=== PATIENT | male | born 1975 | race Caucasian/White ===

== ENCOUNTER 2017-12-11 15:32 | Emergency (ER) | payer MEDICAID, SELFPAY ==
[2017-12-11 16:01] VITALS: BP 126/81; PULSE 109; RESP 18; TEMP 36.8; O2SAT 97; BMI 30.9
--- NOTE | 2017-12-11 16:54 | HMH.EDUTC ---
[facility] [place] Clinical Impression: History of gout, History of renal insufficiency Right ankle pain Qualifiers: Chronicity: acute Qualified Code(s): M25.571 - Pain in right ankle and joints of right foot Disposition: Home, Self-Care Condition on Discharge: Good Instructions: DI for Gout Additional Instructions: Start prednisone taper. Use as directed Weight bearing as tolerated. Crutches as needed until pain improves As we discussed, this don't know for certain this is gout without the workup we discussed. I understand this is so similar to what you have had before and that you want steroids but if not improvement or ANY new or worsening symptoms, you MUST follow up as this may be something different. Notify PCP of possibly another gout attack. Prescriptions: predniSONE [Prednisone 10mg Tab Dose-Pack] 10 mg PO UD DOSE PK 12 Days #1 pack Referrals: Edita Rascon APRN [Primary Care Provider] - (Immediately for new or worsening symptoms but also notify her Wednesday of symptoms and possibly another gout attack (can't be for certain since no workup tonight)) Time of Disposition: 17:07 Medical Decision Making - Maximo Inquiry Pt receiving controlled substance: No Vital Signs: 12/11/17 16:01 Temperature 98.3 F Temperature Source Temporal Artery Scan Pulse Rate [Right Radial] 109 H Respiratory Rate 18 Blood Pressure [Right Arm] 126/81 Blood Pressure Mean [Right Arm] 96 Blood Pressure Source [Right Arm] Automatic Cuff Blood Pressure Position [Right Arm] Sitting 02 Sat by Pulse Oximetry 97 Oxygen Delivery Method Room Air - Reevaluation(s) Reevaluation #1: Lengthy discussion regarding necessity for labs, xray. pt refusing. States he knows this is gout and only wants steroids. Aware of the risk of this not being gout and possibly something else. Aware if this is infection, steroids can make it worse. Also discussed the possibility of stress fracture without trauma. Still declines further workup. [facility] [place] - General Stated complaint: Pain in right foot Time Seen by Provider: 12/11/17 16:54 Mode of Arrival: Wheelchair Source of Information: Patient Limitations: No Limitations Description of Symptoms (Recalled from Triage Doc. by RN): PT C/O RIGHT FOOT PAIN. PT THINKS ITS GOUT. HEENT Symptoms (Recalled from RN notes): No Resp Symptoms (Recalled from RN notes): No Skin Symptoms (Recalled from RN notes): No MS Symptoms (Recalled from RN notes): Yes (RIGHT FOOT PAIN) Functional Status (Recalled from RN notes): NA - History of Present Illness Provider Complaint: c/o another gout attack . Pain right lateral ankle. Occurred suddenly in middle of night. No injury/trauma. Pain worse with ROM or trying to bear weight. Associated w/ swelling and redness. Hx of gout. same symptoms . Wanting steroids because those helped previously. Hx of kidney disease. When last seen in May 2017, was dx stage II at that time. Pt isn't sure now. Saw tableau administrator and was started on a blood pressure pill . Last episode gout then in May. Refusing workup today stating he knows what this is and he doesn't need xrays or labs. - Related Data Home Medications Medication Instructions Recorded Confirmed carvedilol 25 mg tablet 25 mg PO BID 10/21/17 12/11/17 Lisinopril [Prinivil 20mg Tablet] 20 mg PO BID 12/11/17 12/11/17 hydroCHLOROthiazide [HCTZ 25mg 25 mg PO BID 12/11/17 12/11/17 tab] Previous Rx's Medication Instructions Recorded predniSONE [Prednisone 10mg Tab 10 mg PO UD DOSE PK 12 Days #1 pack 12/11/17 Dose-Pack] Allergies Allergy/AdvReac Type Severity Reaction Status Date / Time No Known Allergies Allergy Unverified 09/14/17 14:49 - Worker's Comp Is this a Worker's Comp case?: No [facility] History I have reviewed the patient's past medical history: Yes Medical History: Reports:: Hypertension, Migraine, Renal Disease Denies:: Cancer, Diabetes Mellitus Type 1, Diabetes Mellitus Type 2, MRSA Other
[2017-12-11 17:17] VITALS: BP 122/69; PULSE 100; RESP 18; TEMP 36.9; O2SAT 99
== END 2017-12-11 17:12 | disposition home or self-care (01) ==
PROVIDERS: Emergency Provider Nurse Practitioner Family; PCP Nurse Practitioner Family
DX: M10.071 Idiopathic gout, right ankle and foot (principal); I10 Essential (primary) hypertension; N18.2 Chronic kidney disease, stage 2 (mild)
CPT/HCPCS: 99201

== ENCOUNTER → 2018-04-18 08:44 | Outpatient (CLI) | payer MEDICAID, SELFPAY ==
--- NOTE | 2018-04-18 08:47 | CA_ITS ---
PROCEDURE: 2-D M-mode and color Doppler study INDICATIONS FOR THE TEST: Chest pain COPD Heart Murmur Tobacco Smoking Palpitations Fatigue Syncope Edema Hypertension+Diabetes Mellitus Rheumatic Fever SOB SANCHEZ Obesity Hyperlipidemia Family History HD Additional History DD, LOOP RECORDER PATIENT INFORMATION HEIGHT: 74 WEIGHT:256 GENDER: Male B/P:130/79 2-D/M-MODE INTERPRETATION: 2-D MEASUREMENTS OBSERVED VALUES IN CMS Right Ventricular Dimension (RVDd) 3.5 Interventricular Septum (Thickness)(IVsd) 1.0 Left Ventricular Internal Dimensions(LVIDd) 5.9 Left Ventricular Posterior Wall (Thickness)(LVPWd) 0.7 Aortic Root 3.7 Aortic Cusp Separation 2.3 Left Atrial Dimensions (LAD) 4.7 2D 1. Left atrium is mildly enlarged, left ventricle is normal size, there is mild concentric left ventricular hypertrophy, visually estimated ejection fraction 55% with no obvious regional wall motion abnormality. 2. The right atrium and right ventricle are normal size and contractility. 3. The aortic valve is minimally thickened and fibrosed. 4. The mitral and tricuspid valve are grossly normal. 5. The pulmonic valve is poorly visualized. 6. No significant pericardial effusion noted. DOPPLER INTERROGATION: Doppler interrogation of the aortic, mitral and tricuspid valvular presence of mild mitral and tricuspid regurgitation, tricuspid and jet velocity is insufficient for calculation of the right ventricular systolic pressure, diastolic parameters are inconclusive. CONCLUSION: 1. Mildly enlarged left atrium, normal left ventricular size, preserved left ventricular systolic function, visually estimated ejection fraction 55% with no obvious regional wall motion abnormality, diastolic parameters are inconclusive. 2. Mild mitral and tricuspid regurgitation 3. No significant pericardial effusion noted.
[2018-04-18 09:57] LABS: Anion Gap 11.7 mEq/L (5-15); Blood Urea Nitrogen 25 mg/dL (7-18); Calcium 9.2 mg/dL (8.5-10.1); Carbon Dioxide 30 mmol/L (21.0-32.0); Chloride 105 mmol/L (98-107); Creatinine,Serum 1.57 mg/dL (0.70-1.30); Estimated Glomerular Filt Rate 48 ml/min (>60); GFR (African American) 58 ML/MIN (>60); Glucose 110 mg/dL (74-106); Potassium 4.7 mmoL/L (3.5-5.1); Sodium 142 mmol/L (136-145)
== END ==
PROVIDERS: Urology; PCP Nurse Practitioner Family; Visit Provider Internal Medicine
DX: R07.9 Chest pain, unspecified (principal); I50.30 Unspecified diastolic (congestive) heart failure
CPT/HCPCS: 36415; 80048; 93306

== ENCOUNTER → 2019-06-01 17:05 | Outpatient (CLI) | payer MEDICAID, SELFPAY ==
[2019-06-01 17:41] LABS: Basophils % 0.6 % (0.1-2.0); Eosinophils # 0.2 K/mm3 (0.0-0.4); Eosinophils % 2.7 % (0.1-12.0); Hematocrit 46.1 % (42.0-52.0); Hemoglobin 15.7 g/dL (14.1-18.0); Lymphocytes # 1.6 K/mm3 (0.7-4.5); Lymphocytes % 23.4 % (10-50); Mean Corpuscular HGB Conc 33.9 g/dL (31.8-35.4); Mean Corpuscular Volume 91.3 fl (80-94); Mean Platelet Volume 8.3 fl (7.4-10.4); Monocytes # 0.5 K/mm3 (0.1-1.0); Monocytes % 7.2 % (1.7-9.3); Neutrophils # 4.6 K/mm3 (1.8-7.8); Neutrophils % 66.1 % (37.0-80.0); Platelet Count 265 K/mm3 (142-424); Red Blood Count 5.06 M/mm3 (4.60-6.20); Red Cell Distribution Width 14.3 % (11.5-17.5)
[2019-06-01 18:35] LABS: Alanine Aminotransferase 155 U/L (12-78); Albumin Level 4.2 gm/dL (3.4-5.0); Alkaline Phosphatase 92 U/L (46-116); Anion Gap 14.3 mEq/L (5-15); Aspartate Amino Transferase 94 U/L (15-37); Bilirubin,Total 1.2 mg/dL (0.2-1.0); Blood Urea Nitrogen 29 mg/dL (7-18); Calcium 9.5 mg/dL (8.5-10.1); Carbon Dioxide 28 mmol/L (21.0-32.0); Chloride 99 mmol/L (98-107); Chol/HDL Ratio 7.8 (1-3.5); Cholesterol 235 mg/dL (140-200); Creatinine,Serum 1.84 mg/dL (0.70-1.30); Estimated Glomerular Filt Rate 40 ml/min (>60); GFR (African American) 48 ML/MIN (>60); Globulin 4.1 gm/dl (1.3-3.2); Glucose 108 mg/dL (74-106); HDL Cholesterol 30 mg/dL (27-67); Potassium 4.3 mmoL/L (3.5-5.1); Sodium 137 mmol/L (136-145); T4 (Thyroxine) 6.6 ug/dl (4.7-13.3); Thyroid Stimulating Hormone 0.96 uIU/ml (0.358-3.740); Total Protein,Serum 8.3 gm/dL (6.4-8.2)
[2019-06-01 18:44] LABS: Triglycerides 505 mg/dL (30-200)
== END ==
PROVIDERS: Visit Provider Nurse Practitioner Family
DX: R53.83 Other fatigue (principal); I10 Essential (primary) hypertension
CPT/HCPCS: 80053; 80061; 84436; 84443; 85025

== ENCOUNTER → 2019-06-07 18:23 | Outpatient (CLI) | payer MEDICAID, SELFPAY ==
[2019-06-09 11:12] LABS: Hep A Ab, IgM Negative (Negative); Hepatitis B Core Antibody IgM Negative (Negative); Hepatitis B Surface Antigen Negative (Negative)
[2019-06-09 17:11] LABS: Hepatitis C Antibody <0.1 s/co ratio (0.0-0.9)
== END ==
PROVIDERS: Visit Provider Nurse Practitioner Family
DX: R73.9 Hyperglycemia, unspecified (principal)
CPT/HCPCS: 80074; 83036

== ENCOUNTER → 2019-07-26 10:03 | Outpatient (CLI) | payer OTHER, SELFPAY ==
[2019-07-26 11:33] LABS: Anion Gap 12.4 mEq/L (5-15); Blood Urea Nitrogen 15 mg/dL (7-18); Calcium 9.8 mg/dL (8.5-10.1); Carbon Dioxide 30 mmol/L (21.0-32.0); Chloride 101 mmol/L (98-107); Creatinine,Serum 1.74 mg/dL (0.70-1.30); Estimated Glomerular Filt Rate 43 ml/min (>60); GFR (African American) 52 ML/MIN (>60); Glucose 103 mg/dL (74-106); Potassium 3.4 mmoL/L (3.5-5.1); Sodium 140 mmol/L (136-145)
== END ==
PROVIDERS: Visit Provider Urology
DX: I10 Essential (primary) hypertension (principal); I51.9 Heart disease, unspecified; R94.5 Abnormal results of liver function studies
CPT/HCPCS: 36415; 80048

== ENCOUNTER 2019-10-02 18:48 | Observation (INO) ==
[2019-10-02 19:04] LABS: Basophils # 0.1 K/mm3 (0-0.2); Basophils % 0.6 % (0.1-2.0); Eosinophils # 0.1 K/mm3 (0.0-0.4); Eosinophils % 1.2 % (0.1-12.0); Hematocrit 43.9 % (42.0-52.0); Hemoglobin 14.3 g/dL (14.1-18.0); Lymphocytes # 1.8 K/mm3 (0.7-4.5); Lymphocytes % 18.3 % (10-50); Mean Corpuscular HGB Conc 32.7 g/dL (31.8-35.4); Mean Corpuscular Volume 83.4 fl (80-94); Mean Platelet Volume 7.7 fl (7.4-10.4); Monocytes # 0.6 K/mm3 (0.1-1.0); Monocytes % 6.4 % (1.7-9.3); Neutrophils # 7.4 K/mm3 (1.8-7.8); Neutrophils % 73.5 % (37.0-80.0); Platelet Count 282 K/mm3 (142-424); Red Blood Count 5.26 M/mm3 (4.60-6.20); Red Cell Distribution Width 14.4 % (11.5-17.5); White Blood Count 10.1 K/mm3 (4.8-10.8)
[2019-10-02 19:21] LABS: Anion Gap 15.4 mEq/L (5-15); Blood Urea Nitrogen 19 mg/dL (7-18); Calcium 9.4 mg/dL (8.5-10.1); Carbon Dioxide 25 mmol/L (21.0-32.0); Chloride 101 mmol/L (98-107); Glucose 100 mg/dL (74-106); Sodium 138 mmol/L (136-145)
--- NOTE | 2019-10-02 20:20 | Emergency Department Note ---
ED Disposition Clinical Impression: Angina at rest, Obesity (BMI 30.0-34.9), Hypertensive urgency HTN (hypertension) Qualifiers: Hypertension type: essential hypertension Qualified Code(s): I10 - Essential (primary) hypertension Disposition: Admitted as Observation Condition on Discharge: Good Referrals: Edita Rascon APRN [Primary Care Provider] - - Critical Care Critical Care Time: No Attestation: On 10/02/19, the high probability of a clinically significant, sudden or life threatening deterioration of the following system(s) required my full and direct attention, intervention and personal management. The time I documented below is in addition to time spent performing reported procedures but includes the following listed in this critical care notation. Medical Decision Making - Medical Records Medical records reviewed: Yes: I reviewed the patient's medical records. - Maximo Inquiry Pt receiving controlled substance: No Vital Signs: 10/02/19 18:48 10/02/19 19:28 10/02/19 19:49 Temperature 98.0 F Temperature Source Oral Pulse Rate [Radial] 93 H 88 92 H Respiratory Rate 18 18 Blood Pressure [Right Arm] 196/137 H 182/128 H 159/117 H Blood Pressure Mean [Right Arm] 156 146 131 Blood Pressure Source [Right Arm] Automatic Cuff Manual Cuff/ Auscultation Automatic Cuff Blood Pressure Position [Right Arm] Sitting Sitting 02 Sat by Pulse Oximetry 97 99 96 Oxygen Delivery Method Room Air Room Air Room Air - Lab Data Lab results reviewed: Yes: I reviewed the patient's lab results. Lab Results 10/02/19 18:52: WBC 10.1, RBC 5.26, Hgb 14.3, Hct 43.9, MCV 83.4, MCH 27.3, MCHC 32.7, RDW 14.4, Plt Count 282, MPV 7.7, Neut % (Auto) 73.5, Lymph % (Auto) 18.3, [place] % (Auto) 6.4, Eos % (Auto) 1.2, Baso % (Auto) 0.6, Neut # (Auto) 7.4, Lymph # (Auto) 1.8, [place] # (Auto) 0.6, Eos # (Auto) 0.1, Baso # (Auto) 0.1 10/02/19 18:52: Sodium 138, Potassium 3.4 L, Chloride 101, Carbon Dioxide 25, Anion Gap 15.4 H, BUN 19 H, Creatinine 1.18, Estimated Creat Clear 122, Estimated GFR 67, Est GFR ( Amer) 81, Glucose 100, Calcium 9.4, Troponin I < 0.02 Result diagrams: 10/02/19 18:52 10/02/19 18:52 Orders (Tests/Meds): ED MEDICATIONS Discontinued Medications Generic Name Dose Route Start Last Admin Trade Name Freq PRN Reason Stop Dose Admin Aspirin 324 mg 10/02/19 18:56 10/02/19 19:00 Aspirin 81mg Chewable Tablet PO 10/02/19 18:57 324 mg ONCE ONE Administration Nitroglycerin 0.4 mg 10/02/19 19:28 10/02/19 19:31 Nitrostat 0.4mg Sl Tablet SL 10/02/19 19:29 0.4 mg ONCE ONE Administration ORDERS Category Date Time Status Troponin I Q3H Lab 10/02/19 22:00 Ordered Troponin I Q3H Lab 10/03/19 01:00 Ordered ECG Request by /Maura Stat Y 10/02/19 18:56 Ordered - Radiology Data #1 Image(s): Chest Image Reviewed: Yes I reviewed the patient's radiology image Preliminary Findings: Normal/NAD - ECG Data Tracing #1 Normal Sinus Rhythm: Yes Ischemic changes: non-specific ST-T wave changes Conduction abnormalities present: RBBB Chest Pain HPI - General Chief Complaint: Chest Pain Stated Complaint: chest pain Time Seen by Provider: 10/02/19 20:00 Mode of Arrival: Ambulatory Source of Information: Patient, Medical Record Limitations: No Limitations Description of Symptoms (Recalled from ER Triage Doc. by RN): Headache, chest pain with left arm numbness - History of Present Illness HPI narrative: pt with acute onset of ant chest pain feels like being punched with rad to lt upper ext - has known heart disease - no recent cath - no tob or diabetes but has htn and has been compliant with meds complaint: chest pain indicative of cardiac Onset (ago): hour(s) Duration: now resolved Activity at onset: during rest Pain location: left chest Severity: moderate Quality: sharp Pain radiation: LUE Risk Factors for CAD: Hypertension, Hypercholesterolemia, Family Hx of CAD Treatments prior to or on arrival for Cardiac Chest Pain: none - CRISTOPHER Score for Non-Stemi Age of Patient: 40-49 years old Heart Rate: 90-109 bpm Systolic Blood Pressure: 160-199 mmHg Serum Creatinine: 0.80-1.19 mg/dl CHF [place] Class: I-No CHF Other Risk Factors: None Non-Stemi Risk Score: 57 - Related Data Home Medications Medication Instructions Recorded Confirmed Amlodipine Besylate 10 mg PO DAILY 10/02/19 10/02/19 Allergies Allergy/AdvReac Type Severity Reaction Status Date / Time No Known Allergies Allergy Verified 08/30/19 16:24 [facility] History - Hepatitis A Screen Drug use history?: No High risk sexual behaviors?: No History of sexually transmitted infection?: No Currently employed?: No Childcare worker?: No Do you have indoor plumbing?: Yes Do you have electricity?: Yes Attestation statement:: This patient has been screened for Hepatitis A risk factors. I have reviewed the patient's past medical history: Yes Medical History: Reports:: Coronary Artery Disease, Hypertension, Migraine, Renal Disease Denies:: Cancer, Diabetes Mellitus Type 1, Diabetes Mellitus Type 2, MRSA Other Medical History: Reports: Other Other Surgeries: Yes: Cardiac Catheterization, Other Amputation: No Fractures: No Comment: HEART CATH, LUP RECORDER - Social History Educational Level: Completed High School Smoking Status: Never smoker Tobacco Type: smokeless tobacco # Packs/Day (cigarettes): 0 Alcohol Intake: never Alcohol Intake Frequency:: other Substance Use Type: denies use Occupational Status: unemployed Housing: house Household Members: children, family Family Hx:: Cancer ROS Obtained: Yes All systems reviewed & no additional complaints - Constitutional Constitutional: Denies fever(s) - Eyes Eyes: Denies change in vision - ENT Ears, Nose, Mouth, and Throat: Denies sore throat - Cardiovascular Cardiovascular: Reports chest pain, Denies dyspnea - Respiratory Respiratory: No cough - Gastrointestinal Gastrointestingal: Denies: abdominal pain - Genitourinary Male Genitourinary: Denies hematuria - Musculoskeletal Musculoskeletal: Denies joint pain, Denies joint swelling - Integumentary/Breasts Skin/Breast: Denies rash - Neurologic Neurologic: Denies frequent falls, Denies seizure-like activity Physical Exam - General General appearance: alert - Head Head exam: normocephalic - Eye Eye exam: Present: PERRL, EOMI - ENT ENT exam: Present: mucous membranes moist - Neck Neck exam: Present: trachea midline - Respiratory Respiratory exam: Present: normal lung sounds bilaterally - Cardiovascular Cardiovascular exam: Present: regular rate, systolic murmur. Absent: rubs, gallop - Abdominal Exam Abdominal exam: Present: soft - Extremities Exam Extremities exam: Present: full ROM. Absent: calf tenderness - Neurological Exam Neurological exam: Present: alert, oriented X3, CN II-XII intact - Psychiatric Psychiatric exam: Present: normal affect - Skin Skin exam: Absent: rash
[2019-10-03 06:32] LABS: Basophils # 0.1 K/mm3 (0-0.2); Eosinophils # 0.3 K/mm3 (0.0-0.4); Mean Corpuscular HGB Conc 32.5 g/dL (31.8-35.4); Monocytes # 0.6 K/mm3 (0.1-1.0); Red Cell Distribution Width 14.6 % (11.5-17.5)
[2019-10-03 06:38] LABS: Basophils % 0.7 % (0.1-2.0); Eosinophils % 3.3 % (0.1-12.0); Hematocrit 39.4 % (42.0-52.0); Lymphocytes % 25.5 % (10-50); Mean Corpuscular Volume 84.4 fl (80-94); Mean Platelet Volume 7.9 fl (7.4-10.4); Monocytes % 7.3 % (1.7-9.3); Neutrophils % 63.1 % (37.0-80.0); Platelet Count 251 K/mm3 (142-424); Red Blood Count 4.67 M/mm3 (4.60-6.20); White Blood Count 7.9 K/mm3 (4.8-10.8)
[2019-10-03 06:56] LABS: Anion Gap 11.7 mEq/L (5-15); Calcium 8.8 mg/dL (8.5-10.1); Chol/HDL Ratio 6.4 (1-3.5)
[2019-10-03 07:05] LABS: Hemoglobin 12.8 g/dL (14.1-18.0)
--- NOTE | 2019-10-03 07:38 | Consult Report ---
History of Present Illness Consult date: 10/03/19 Requesting physician: Dale Bhat Consult reason: chest pain Chief complaint: chest pain Additional Medical History:: 1. HTN A. History of CKD, stage III/IV, now resolved. 2. Obesity 3. Normal coronaries by [facility] , 06/2017, normal LVEF 60% and LVEDP of 15 mm Hg 4. History of gout History of present illness: 43 yo WM with long history of HTN that has been difficult to control presented to ER for chest pain. Pt relates recent separation from which has increased his stress. He was thinking about things yesterday when his chest pain started and it kept getting worse as he continued to think about things. He came to ER for evaluation and treatment. Symptoms resolved with SL NTG and then NTG paste. Admitted overnight for observation. Troponins normal X 3 overnight. EKG is sinus with RBBB. No further chest pain overnight. History of normal coronaries in 06/2017. 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 Last saw Nephrology about 6 months ago. [facility] History Medical History: Reports:: Coronary Artery Disease, Hypertension, Migraine, Renal Disease Denies:: Cancer, Diabetes Mellitus Type 1, Diabetes Mellitus Type 2, MRSA *Have you ever received a pneumonia vaccine?: Yes *Have you received a flu vaccine this season?: Yes Other Medical History: Reports: Other Other Surgeries: Yes: Cardiac Catheterization (heart cath x2), Other (Loop recorder) Amputation: No Fractures: No - *Social History Educational Level: Completed High School Smoking Status: Never smoker Tobacco Type: smokeless tobacco # Packs/Day (cigarettes): 0 Alcohol Intake: never Alcohol Intake Frequency:: other Substance Use Type: denies use *Occupational Status:: employed Housing: house Household Members: children, family *Travel in the last 8 weeks: None Family Hx:: Cancer, Hyperlipidemia, Hypertension, Stroke Meds Home Medications Medication Instructions Recorded Confirmed Type Amlodipine Besylate 10 mg PO DAILY 10/02/19 10/02/19 History Allergies Allergy/AdvReac Type Severity Reaction Status Date / Time No Known Allergies Allergy Verified 10/02/19 21:14 Review of Systems - Review of Systems Review of systems:: pertinent systems reviewed and negative unless documented below - *Cardiovascular Reports chest pain - *Respiratory Denies shortness of breath - *Gastrointestinal Denies loose stools, Denies nausea, Denies vomiting - *Genitourinary Denies blood in urine - *Musculoskeletal Denies joint pain, Denies back pain - *Neurologic Denies frequent falls, Denies seizure-like activity Exam Vital signs and Labs for Last 24 Hours: Temp Pulse Resp BP Pulse Ox 97.7 F 64 18 136/99 H 96 10/03/19 04:00 10/03/19 04:00 10/03/19 04:00 10/03/19 04:00 10/03/19 04:00 Laboratory Results - last 24 hr 10/02/19 18:52: WBC 10.1, RBC 5.26, Hgb 14.3, Hct 43.9, MCV 83.4, MCH 27.3, MCHC 32.7, RDW 14.4, Plt Count 282, MPV 7.7, Neut % (Auto) 73.5, Lymph % (Auto) 18.3, [place] % (Auto) 6.4, Eos % (Auto) 1.2, Baso % (Auto) 0.6, Neut # (Auto) 7.4, Lymph # (Auto) 1.8, [place] # (Auto) 0.6, Eos # (Auto) 0.1, Baso # (Auto) 0.1 10/02/19 18:52: Sodium 138, Potassium 3.4 L, Chloride 101, Carbon Dioxide 25, Anion Gap 15.4 H, BUN 19 H, Creatinine 1.18, Estimated Creat Clear 122, Estimated GFR 67, Est GFR ( Amer) 81, Glucose 100, Calcium 9.4, Troponin I < 0.02 10/02/19 21:56: Troponin I < 0.02 10/03/19 00:35: Troponin I < 0.02 10/03/19 06:20: WBC 7.9, RBC 4.67, Hgb 12.8 L D, Hct 39.4 L, MCV 84.4, MCH 27.4, MCHC 32.5, RDW 14.6, Plt Count 251, MPV 7.9, Neut % (Auto) 63.1, Lymph % (Auto) 25.5, [place] % (Auto) 7.3, Eos % (Auto) 3.3, Baso % (Auto) 0.7, Neut # (Auto) 5.0, Lymph # (Auto) 2.0, [place] # (Auto) 0.6, Eos # (Auto) 0.3, Baso # (Auto) 0.1 10/03/19 06:20: Sodium 140, Potassium 3.7, Chloride 104, Carbon Dioxide 28, Anion Gap 11.7, BUN 17, Creatinine 1.07, Estimated Creat Clear 138, Estimated GFR 75, Est GFR ( Amer) 90, Glucose 110 H, Calcium 8.8, Magnesium 2.0, Triglycerides 238 H, Cholesterol 185, LDL Cholesterol 108, VLDL Cholesterol 48 H , HDL Cholesterol 29, Cholesterol/HDL Ratio 6.4 H I & O for Last 24 hours: Intake & Output 09/30/19 10/01/19 10/02/19 10/03/19 11:59 11:59 11:59 11:59 Intake Total 482 / 482 Balance 482 / 482 Weight 246 lb 1 oz - *Routine HEENT Exam Head: Present: normocephalic Eye: Present: EOMI, PERRL ENT: Present: mucous membranes moist - *Routine Neck Exam Present: supple. Absent: JVD, carotid bruit - *Routine Respiratory Exam Present: CTA bilaterally. Absent: accessory muscle use, rales, rhonchi, wheezes - *Routine Cardiovascular Exam Present: RRR. Absent: murmur, gallop, rubs - *Routine Abdominal Exam Present: soft. Absent: tenderness, distended, guarding - *Routine Extremities Exam Absent: edema, calf tenderness - *Routine Neurological Exam Present: alert, oriented X3, moving all extremities Assessment and Plan (1) Chest pain Current visit: Yes Status: Acute Category: Medical Code(s): R07.9 - Chest pain, unspecified (2) Hypertensive urgency Current visit: Yes Status: Acute Category: Medical Code(s): I16.0 - Hypertensive urgency (3) Obesity (BMI 30.0-34.9) Current visit: Yes Status: Acute Category: Medical Code(s): E66.9 - Obesity, unspecified (4) HTN (hypertension) Current visit: Yes Status: Chronic Qualifiers: Hypertension type: essential hypertension Qualified Code(s): I10 - Essential (primary) hypertension Category: Medical Code(s): I10 - Essential (primary) hypertension - Assessment and plan all Dx Assessment and Plan for all problems:: 1. Chest pain, normal troponins X 3 and EKG with RBBB without acute ST segment changes. Normal coronaries in 2017. Pt now relates stress related to recent separation with that prompted chest pain. BP better this AM. No further testing at this time. OK for discharge home from cardiology standpoint. Resume norvasc 10 mg daily.
--- NOTE | 2019-10-03 08:06 | Pharmacy Consult Notes ---
[facility] Pharmacy VTE Monitoring - Patient Demographics Admission date: 10/02/19 Report Date: 10/03/19 Time: 08:05 Allergies/Adverse Reactions: Patient Allergies No Known Allergies Allergy (Verified 10/02/19 21:14) Height: 1.88 m Weight: 111.612 kg Patient Problems: Current Active Problems Angina at rest (Acute) Obesity (BMI 30.0-34.9) (Acute) Hypertensive urgency (Acute) Chest pain (Acute) HTN (hypertension) (Chronic) - VTE Risk Labs: VTE Related Lab Results Hgb 12.8 g/dL (14.1-18.0) L D 10/03/19 06:20 Hct 39.4 % (42.0-52.0) L 10/03/19 06:20 Plt Count 251 K/mm3 (142-424) 10/03/19 06:20 BUN 17 mg/dL (7-18) 10/03/19 06:20 Creatinine 1.07 mg/dL (0.70-1.30) 10/03/19 06:20 Estimated Creat Clear 138 mL/min (50-200) 10/03/19 06:20 Was VTE Risk Assessment Performed: Yes VTE Score: 2 VTE Risk Level: Very Low Risk Clinical Trial Participant: No - Prophylaxis VTE Prophylaxis Ordered?: Yes Types of VTE Prophylaxis: TEDS Knee High
--- NOTE | 2019-10-03 09:47 | H&P/Discharge Summary ---
General - General Admission date:: 10/02/19 Discharge date: 10/03/19 *Admission Date: 10/02/19 *Chief complaint: Chest Pain *History of present illness: 43 yo WM with long history of HTN that has been difficult to control presented to ER for chest pain. Pt relates recent separation from which has increased his stress. He was thinking about things yesterday when his chest pain started and it kept getting worse as he continued to think about things. He came to ER for evaluation and treatment. Symptoms resolved with SL NTG and then NTG paste. Admitted overnight for observation. Troponins normal X 3 ove rnight. EKG is sinus with RBBB. No further chest pain overnight. History of normal coronaries in 06/2017. 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 Last saw Nephrology about 6 months ago. (Per Tunde YU) [facility] History Medical History: Reports:: Coronary Artery Disease, Hypertension, Migraine, Renal Disease Denies:: Cancer, Diabetes Mellitus Type 1, Diabetes Mellitus Type 2, MRSA *Have you ever received a pneumonia vaccine?: Yes *Have you received a flu vaccine this season?: Yes Other Medical History: Reports: Other Other Surgeries: Yes: Cardiac Catheterization (heart cath x2), Other (Loop recorder) Amputation: No Fractures: No - *Social History Educational Level: Completed High School Smoking Status: Never smoker Tobacco Type: smokeless tobacco # Packs/Day (cigarettes): 0 Alcohol Intake: never Alcohol Intake Frequency:: other Substance Use Type: denies use *Occupational Status:: employed Housing: house Household Members: children, family *Travel in the last 8 weeks: None Family Hx:: Cancer, Hyperlipidemia, Hypertension, Stroke Review of Systems - Review of Systems Review of systems:: pertinent systems reviewed and negative unless documented below - Constitutional Denies fever(s), Denies headache(s) - Eyes Denies blind spots, Denies double vision - ENT Denies abnormal hearing, Denies nasal congestion - *Cardiovascular Reports chest pain, Reports chest pain at rest, Denies lightheadedness, Denies shortness of breath when lying down - *Respiratory Denies change in phlegm color, Denies chest congestion - *Gastrointestinal Denies abdominal pain, Denies change in bowel habits - *Genitourinary Denies difficulty urinating - *Musculoskeletal Denies abnormal walking, Denies joint pain - Integumentary/Breasts Denies acne, Denies hair loss - *Neurologic Denies frequent falls, Denies seizure-like activity - Psychiatric Denies abnormal sleep pattern, Denies thoughts of hurting/killing yourself - Hematologic/Lymphatic Denies easy bleeding, Denies easy bruising - Allergic/Immunologic Denies lip swelling Exam Vital signs and Labs for Last 24 Hours: Temp Pulse Resp BP Pulse Ox 97.5 F L 72 18 152/98 H 96 10/03/19 08:00 10/03/19 08:00 10/03/19 08:00 10/03/19 08:00 10/03/19 08:00 Laboratory Results - last 24 hr 10/02/19 18:52: WBC 10.1, RBC 5.26, Hgb 14.3, Hct 43.9, MCV 83.4, MCH 27.3, MCHC 32.7, RDW 14.4, Plt Count 282, MPV 7.7, Neut % (Auto) 73.5, Lymph % (Auto) 18.3, Union % (Auto) 6.4, Eos % (Auto) 1.2, Baso % (Auto) 0.6, Neut # (Auto) 7.4, Lymph # (Auto) 1.8, Union # (Auto) 0.6, Eos # (Auto) 0.1, Baso # (Auto) 0.1 10/02/19 18:52: Sodium 138, Potassium 3.4 L, Chloride 101, Carbon Dioxide 25, Anion Gap 15.4 H, BUN 19 H, Creatinine 1.18, Estimated Creat Clear 122, Estimated GFR 67, Est GFR ( Amer) 81, Glucose 100, Calcium 9.4, Troponin I < 0.02 10/02/19 21:56: Troponin I < 0.02 10/03/19 00:35: Troponin I < 0.02 10/03/19 06:20: WBC 7.9, RBC 4.67, Hgb 12.8 L D, Hct 39.4 L, MCV 84.4, MCH 27.4, MCHC 32.5, RDW 14.6, Plt Count 251, MPV 7.9, Neut % (Auto) 63.1, Lymph % (Auto) 25.5, Union % (Auto) 7.3, Eos % (Auto) 3.3, Baso % (Auto) 0.7, Neut # (Auto) 5.0, Lymph # (Auto) 2.0, Union # (Auto) 0.6, Eos # (Auto) 0.3, Baso # (Auto) 0.1 10/03/19 06:20: Sodium 140, Potassium 3.7, Chloride 104, Carbon Dioxide 28, Anion Gap 11.7, BUN 17, Creatinine 1.07, Estimated Creat Clear 138, Estimated GFR 75, Est GFR ( Amer) 90, Glucose 110 H, Calcium 8.8, Magnesium 2.0, Triglycerides 238 H, Cholesterol 185, LDL Cholesterol 108, VLDL Cholesterol 48 H , HDL Cholesterol 29, Cholesterol/HDL Ratio 6.4 H I & O for Last 24 hours: Intake & Output 09/30/19 10/01/19 10/02/19 10/03/19 23:59 23:59 23:59 23:59 Intake Total 482 / 482 Balance 482 / 482 Weight 245 lb 6 oz 246 lb 1 oz - Constitutional no acute distress - *Routine HEENT Exam Head: Present: normocephalic, atraumatic Eye: Present: EOMI, PERRL, normal accommodation. Absent: periorbital tenderness ENT: Present: mucous membranes moist. Absent: sinus tenderness - *Routine Neck Exam Present: supple, full ROM. Absent: JVD, tracheal deviation - *Routine Respiratory Exam Present: CTA bilaterally. Absent: accessory muscle use - *Routine Cardiovascular Exam Present: RRR - *Routine Abdominal Exam Present: soft, normoactive bowel sounds. Absent: tenderness, firm - *Routine Extremities Exam Present: full ROM. Absent: cyanosis, calf tenderness - Routine Back/Spine/Pelvis Exam Back/Spine: Present: full ROM. Absent: CVA tenderness - *Routine Skin Exam Present: intact. Absent: cyanosis - *Routine Neurological Exam Present: alert, oriented X3, CN II-XII intact. Absent: motor deficit, altered mental status - Routine Psychiatric Exam Present: normal affect, normal thought process, visual hallucinations. Absent: suicidal ideation, homicidal ideation Hospital Course Hospital Course: 43-year-old male resting quietly in bed, denies any chest pain, shortness of air, or any other complaints during the night. Discussed discharge home today, he is agreeable to this will follow-up with PCP in 1 to 2 weeks 43 yo WM with long history of HTN that has been difficult to control presented to ER for chest pain. Pt relates recent separation from which has increased his stress. He was thinking about things yesterday when his chest pain started and it kept getting worse as he continued to think about things. He came to ER for evaluation and treatment. Symptoms resolved with SL NTG and then NTG paste. Admitted overnight for observation. Troponins normal X 3 overnight. EKG is sinus with RBBB. No further chest pain overnight. History of normal coronaries in 06/2017. 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 Last saw Nephrology about 6 months ago. (Per Tunde YU) 10/02 CXR: IMPRESSION: No acute findings. Dictated by: Dr. Selby, Cardiology is seen and recommends: 1. Chest pain, normal troponins X 3 and EKG with RBBB without acute ST segment changes. Normal coronaries in 2017. Pt now relates stress related to recent separation with that prompted chest pain. BP better this AM. No further testing at this time. OK for discharge home from cardiology standpoint. Resume norvasc 10 mg daily. Results Labs on day of discharge: Labs from last 24 hours 10/03/19 10/03/19 10/03/19 06:20 06:20 00:35 WBC 7.9 RBC 4.67 Hgb 12.8 L D Hct 39.4 L MCV 84.4 MCH 27.4 MCHC 32.5 RDW 14.6 Plt Count 251 MPV 7.9 Neut % (Auto) 63.1 Lymph % (Auto) 25.5 Union % (Auto) 7.3 Eos % (Auto) 3.3 Baso % (Auto) 0.7 Neut # (Auto) 5.0 Lymph # (Auto) 2.0 Union # (Auto) 0.6 Eos # (Auto) 0.3 Baso # (Auto) 0.1 Sodium 140 Potassium 3.7 Chloride 104 Carbon Dioxide 28 Anion Gap 11.7 BUN 17 Creatinine 1.07 Estimated Creat Clear 138 Estimated GFR 75 Est GFR ( Amer) 90 Glucose 110 H Calcium 8.8 Magnesium 2.0 Troponin I < 0.02 Triglycerides 238 H Cholesterol 185 LDL Cholesterol 108 VLDL Cholesterol 48 H HDL Cholesterol 29 Cholesterol/HDL Ratio 6.4 H 10/02/19 10/02/19 10/02/19 21:56 18:52 18:52 WBC 10.1 RBC 5.26 Hgb 14.3 Hct 43.9 MCV 83.4 MCH 27.3 MCHC 32.7 RDW 14.4 Plt Count 282 MPV 7.7 Neut % (Auto) 73.5 Lymph % (Auto) 18.3 Union % (Auto) 6.4 Eos % (Auto) 1.2 Baso % (Auto) 0.6 Neut # (Auto) 7.4 Lymph # (Auto) 1.8 Union # (Auto) 0.6 Eos # (Auto) 0.1 Baso # (Auto) 0.1 Sodium 138 Potassium 3.4 L Chloride 101 Carbon Dioxide 25 Anion Gap 15.4 H BUN 19 H Creatinine 1.18 Estimated Creat Clear 122 Estimated GFR 67 Est GFR ( Amer) 81 Glucose 100 Calcium 9.4 Magnesium Troponin I < 0.02 < 0.02 Triglycerides Cholesterol LDL Cholesterol VLDL Cholesterol HDL Cholesterol Cholesterol/HDL Ratio - Additional Comments Rounded with Dr. Bhat all orders per Dr. Bhat 1. We will discharge home today 2. Follow-up with PCP in 2 weeks 3. Follow-up with cardiology in 2 weeks DS: Diagnosis - Discharge Diagnosis (1) Chest pain Status: Acute (2) Hypertensive urgency Status: Acute (3) Obesity (BMI 30.0-34.9) Status: Acute (4) HTN (hypertension) Status: Chronic Discharge Plan - Patient Discharge Instructions ACTIVITY: Continue current activity DIET: continue same diet Patient Instructions: Angina, Echocardiogram, Essential Hypertension, Electrocardiogram, Malignant Hypertension, DI for Angina, DI for Malignant Hypertension, DI for High Blood Pressure, DI for Atypical Chest Pain, DI for Chest Pain - Follow up Plan Follow up with: Valerio Coles APRN [Nurse Practitioner] - 2 weeks Kennedy Bermudez MD [Staff Physician] - 2 weeks Disposition: Home, Self-[facility] Medications: Home Medications Medication Instructions Recorded Confirmed Type Amlodipine Besylate 10 mg PO DAILY 10/02/19 10/02/19 History Prescriptions/Medication Reconciliation: Continued Amlodipine Besylate 10 mg PO DAILY - Problem Reconciliation Problems Reviewed?: Yes
--- NOTE | 2019-10-03 16:59 | Electrocardiograph Report ---
APPROVED REPORT Exam: Resting ECG HR:90 bpm ECG Measurements Heart Rate 90 AXES NH 140 P 3 QRSd 146 QRS -9 QT 400 T1 QTc 489 <Conclusion> Normal sinus rhythm Right bundle branch block Abnormal ECG Electronically signed by : Alan Tillman, 10/03/2019 16:58:42
--- NOTE | 2019-10-03 16:59 | Electrocardiograph Report ---
APPROVED REPORT Exam: Resting ECG HR:90 bpm ECG Measurements Heart Rate 90 AXES MT 136 P 66 QRSd 92 QRS 67 QT 366 T63 QTc 447 <Conclusion> Normal sinus rhythm Possible Left atrial enlargement Left ventricular hypertrophy Abnormal ECG Electronically signed by : Alan Tillman, 10/03/2019 16:58:33
--- NOTE | 2019-10-03 20:57 | Electrocardiograph Report ---
APPROVED REPORT Exam: Resting ECG HR:69 bpm ECG Measurements Heart Rate 69 AXES KS 154 P 34 QRSd 152 QRS 11 QT 428 T20 QTc 458 <Conclusion> Normal sinus rhythm Right bundle branch block Abnormal ECG Electronically signed by : Wyatt Edwards, 10/03/2019 20:57:09
--- NOTE | 2019-10-03 21:06 | Cardiology Report ---
APPROVED REPORT EXAM: Comprehensive 2D, Doppler, and color-flow Echocardiogram Revenue Cycle Specialist: Agnes Wisdom CRT Ht: 6 ft 2 in Wt: 240lbs BSA: 2.35 BP: 159/117 mmHg Indications: HTN Crisis, Loop recorder, renal disease 2D Dimensions LVOT 2.13 cm (M/F) 1.5-2.5 M-Mode Dimensions RVDd 2.86 cm (0.9-2.6)LVDd 6.29 cm (3.5-5.7) LVDs 4.04 cm (3.5-5.7)IVSd 1.64 cm (0.6-1.1) PWd 0.91 cm (0.6-1.1)EF (Teich) 64.20% FS 35.80% EDV (Teich) 200.50 mL ESV (Teich) 71.70 mL LV Diastology E/A Ratio 0.84 Mitral Valve MV A Velocity 69.00 (40-130 cm/s) Left Ventricle Left atrium is mildly enlarged, left ventricle is normal size, mild concentric left ventricular hypertrophy, visually estimated ejection fraction of 55% with no regional wall motion abnormality. Endocardial surfaces are poorly visualized. Grade 1 diastolic dysfunction seen without tissue Doppler evidence of raise left atrial pressure. Right Ventricle Right atrium and right ventricular normal size and contractility. Aortic Valve Aortic valve is thickened and calcified leaflet continue to display good mobility, there is no aortic stenosis, there is mild aortic insufficiency, aortic root is normal size, ascending aorta with the sinotubular junction is measuring 3.8 cm. Mitral Valve Mitral valve is minimally thickened, there is mild mitral regurgitation. Tricuspid Valve Tricuspid valve is grossly normal, there is mild tricuspid regurgitation. Pulmonic Valve Pulmonic valve is poorly visualized. Great Vessels Aortic root is normal size. Pericardium No significant pericardial effusion noted. Conclusion 1. Mildly enlarged left atrium, normal left ventricular size, mild concentric left ventricular hypertrophy, visually estimated ejection fraction 55% with no regional wall motion abnormality, grade 1 diastolic dysfunction seen without tissue Doppler evidence of raise left atrial pressure. 2. Thickened and calcified aortic valve without aortic stenosis, there is mild aortic insufficiency, ascending aorta is enlarged measuring 3.8 cm. 3. Mild mitral and tricuspid regurgitation. 4. No significant pericardial effusion noted. Electronically signed by : Ck Moctezuma, 10/03/2019 21:06:12
== END 2019-10-03 10:08 | disposition home or self-care (01) ==
LOC: 2ND 18:48 → ER 18:48 → 2ND 21:20
PROVIDERS: ADMIT Emergency Medicine; ATTEND Emergency Medicine
CPT/HCPCS: 36415; 71020; 71046; 80048; 80061; 83735; 84484; 85025; 93005; 93306; 99284; G0378

== ENCOUNTER 2020-07-23 21:28 | Emergency (ER) | payer OTHER, SELFPAY ==
[2020-07-23 21:29] VITALS: BP 220/142; PULSE 89; RESP 20; TEMP 37; O2SAT 95; BMI 33.3
[2020-07-23 22:00] VITALS: BP 178/126; PULSE 87; RESP 17; O2SAT 96
--- NOTE | 2020-07-23 22:00 | ECG_ITS ---
APPROVED REPORT Exam: Resting ECG HR:89 bpm ECG Measurements Heart Rate 89 AXES MI 146 P 10 QRSd 118 QRS 9 QT 382 T 3 QTc 464 Conclusion Normal sinus rhythm Incomplete RBBB Borderline ECG Electronically signed by : Alan Tillman, 07/26/2020 11:22:51
--- NOTE | 2020-07-23 22:00 | XR_ITS ---
PROCEDURE: XR CHEST 2V CLINICAL HISTORY: cp COMPARISON: CR CXR CHEST(2 VIEWS-NOT PORTABLE) from 09/22/2016 CR CXR2V XR chest 2V from 02/04/2018 CR XR CHEST 2V from 10/02/2019 FINDINGS: The cardiomediastinal silhouette and pulmonary vascularity are within normal limits. There is a loop recorder device projecting over the left ventricle. The lungs are clear without infiltrates, suspicious nodules, or pleural effusions. No acute bony abnormalities. IMPRESSION: No acute findings. Dictated by: Dr. Jason Cortes MD 07/24/2020 07:42 Dr. Jason Cortes MD in [place] 07/24/2020 07:42
--- NOTE | 2020-07-23 22:00 | XR_ITS ---
PROCEDURE: XR SHOULDER LT MIN 2V CLINICAL INDICATION: shoulder pain COMPARISON: No exams were available for comparison FINDINGS: The humeral head and glenoid appear normal. The lateral clavicle is intact and the AC joint appears normal. There are no soft tissue calcifications. IMPRESSION: No acute findings. Dictated by: Dr. Jason Cortes MD 07/24/2020 07:43 Dr. Jason Cortes MD in [place] 07/24/2020 07:43
[2020-07-23 22:08] LABS: Basophils # 0.1 K/mm3 (0-0.2); Basophils % 0.8 % (0.1-2.0); Eosinophils # 0.3 K/mm3 (0.0-0.4); Eosinophils % 3.4 % (0.1-12.0); Hemoglobin 16.6 g/dL (14.1-18.0); Lymphocytes # 2.2 K/mm3 (0.7-4.5); Lymphocytes % 24.9 % (10-50); Mean Corpuscular HGB Conc 36.1 g/dL (31.8-35.4); Mean Corpuscular Hemoglobin 31.3 pg (27.0-31.2); Mean Corpuscular Volume 86.7 fl (80-94); Mean Platelet Volume 7.9 fl (7.4-10.4); Monocytes # 0.9 K/mm3 (0.1-1.0); Monocytes % 9.9 % (1.7-9.3); Neutrophils # 5.4 K/mm3 (1.8-7.8); Platelet Count 274 K/mm3 (142-424); Red Cell Distribution Width 14.4 % (11.5-17.5); White Blood Count 8.8 K/mm3 (4.8-10.8)
[2020-07-23 22:12] LABS: Anion Gap 10.9 mEq/L (5-15); Blood Urea Nitrogen 19 mg/dl (9-20); Calcium 9.3 mg/dl (8.4-10.2); Carbon Dioxide 28 mmol/L (22.0-30.0); Chloride 104 mmol/L (98-107); Creatinine Clearance Estimated 118 mL/min (50-200); Estimated Glomerular Filt Rate 59 ml/min (>60); GFR (African American) 72 ML/MIN (>60); Glucose 109 mg/dl (74-100); Potassium 3.9 mmoL/L (3.5-5.1); Sodium 139 mmol/L (136-145)
[2020-07-23 22:25] LABS: Troponin I < 0.01 ng/ml (0.00-0.034)
--- NOTE | 2020-07-23 22:25 | [facility].EDCP ---
ED Disposition Clinical Impression: Atypical chest pain, Hypertensive urgency, Obesity (BMI 30.0-34.9) Disposition: Home, Self-Care Condition on Discharge: Good Instructions: DI for Atypical Chest Pain Additional Instructions: see pcp at 0900 Referrals: Edita Rascon APRN [Primary Care Provider] - - Critical Care Critical Care Time: No Attestation: On 07/23/20, the high probability of a clinically significant, sudden or life threatening deterioration of the following system(s) required my full and direct attention, intervention and personal management. The time I documented below is in addition to time spent performing reported procedures but includes the following listed in this critical care notation. Medical Decision Making - Medical Records Medical records reviewed: Yes: I reviewed the patient's medical records. - Maximo Inquiry Pt receiving controlled substance: No Vital Signs: 07/23/20 21:29 07/23/20 22:00 07/23/20 22:30 Temperature 98.6 F Temperature Source Oral Pulse Rate [Left Radial] 89 87 84 Respiratory Rate 20 17 17 Blood Pressure [Right Arm] 220/142 H 178/126 H 210/136 H Blood Pressure Mean [Right Arm] 168 143 160 Blood Pressure Source [Right Arm] Automatic Cuff Automatic Cuff Manual Cuff/ Auscultation Blood Pressure Position [Right Arm] Supine Supine Supine 02 Sat by Pulse Oximetry 95 96 98 Oxygen Delivery Method Room Air Room Air Room Air 07/23/20 23:00 07/23/20 23:30 Temperature Temperature Source Pulse Rate [Left Radial] 80 82 Respiratory Rate 17 18 Blood Pressure [Right Arm] 180/125 H 189/127 H Blood Pressure Mean [Right Arm] 143 147 Blood Pressure Source [Right Arm] Automatic Cuff Automatic Cuff Blood Pressure Position [Right Arm] Sitting Supine 02 Sat by Pulse Oximetry 95 96 Oxygen Delivery Method Room Air Room Air - Lab Data Lab results reviewed: Yes: I reviewed the patient's lab results. Lab Results 07/23/20 21:45: WBC 8.8, RBC 5.30, Hgb 16.6, Hct 46.0, MCV 86.7, MCH 31.3 H, MCHC 36.1 H, RDW 14.4, Plt Count 274, MPV 7.9, Neut % (Auto) 61.0, Lymph % (Auto) 24.9, [place] % (Auto) 9.9 H, Eos % (Auto) 3.4, Baso % (Auto) 0.8, Neut # (Auto) 5.4, Lymph # (Auto) 2.2, [place] # (Auto) 0.9, Eos # (Auto) 0.3, Baso # (Auto) 0.1 07/23/20 21:45: Sodium 139, Potassium 3.9, Chloride 104, Carbon Dioxide 28, Anion Gap 10.9, BUN 19, Creatinine 1.30 H, Estimated Creat Clear 118, Estimated GFR 59, Est GFR ( Amer) 72, Glucose 109 H, Calcium 9.3, Troponin I < 0.01 Result diagrams: 07/23/20 21:45 07/23/20 21:45 Orders (Tests/Meds): ED MEDICATIONS Discontinued Medications Generic Name Dose Route Start Last Admin Trade Name Freq PRN Reason Stop Dose Admin Ketorolac Tromethamine 30 mg 07/23/20 22:09 07/23/20 22:11 Ketorolac 30mg/Ml Vial IV 07/23/20 22:10 30 mg ONCE ONE Administration ORDERS Category Date Time Status Chest XR 2 view (NOT portable) [XR chest 2V] Stat Exams 07/23/20 22:00 Taken XR shoulder LT min 2V Stat Exams 07/23/20 22:00 Taken Troponin I Q3H Lab 07/24/20 01:15 Ordered Troponin I Q3H Lab 07/24/20 04:15 Ordered - Radiology Data #1 Image(s): Chest, Shoulder Image Reviewed: Yes I reviewed the patient's radiology image Preliminary Findings: Normal/NAD - ECG Data Tracing #1 Normal Sinus Rhythm: Yes Ischemic changes: non-specific ST-T wave changes Chest Pain HPI - General Chief Complaint: Chest Pain Stated Complaint: Soreness in chest, pain when sneezes Time Seen by Provider: 07/23/20 22:25 Mode of Arrival: Ambulatory Source of Information: Patient, Medical Record Limitations: No Limitations Description of Symptoms (Recalled from ER Triage Doc. by RN): Pt c/o pain in left upper area of chest/ shoulder that radiates to left arm when sneezing. He reports he was wrestling w/ his kids 2 weeks agowhen the pain started and he presented to ED because the pain has gotten worse. Left clavical is tender w/ palpation. Pt
[2020-07-23 22:30] VITALS: BP 210/136; PULSE 84; RESP 17; O2SAT 98
[2020-07-23 23:00] VITALS: BP 180/125; PULSE 80; RESP 17; O2SAT 95
[2020-07-23 23:30] VITALS: BP 189/127; PULSE 82; RESP 18; O2SAT 96
[2020-07-24 00:05] VITALS: BP 200/135; PULSE 80; RESP 15; TEMP 36.9; O2SAT 98
== END 2020-07-24 00:10 | disposition home or self-care (01) ==
PROVIDERS: Emergency Provider Emergency Medicine; PCP Nurse Practitioner Family
DX: R07.89 Other chest pain (principal); I16.0 Hypertensive urgency; I25.10 Atherosclerotic heart disease of native coronary artery without angina pectoris; G43.709 Chronic migraine without aura, not intractable, without status migrainosus; Z87.891 Personal history of nicotine dependence; E66.9 Obesity, unspecified; Z68.33 Body mass index [BMI] 33.0-33.9, adult
CPT/HCPCS: 71046; 73030; 80048; 84484; 85025; 93005; 96374; 99283

== ENCOUNTER → 2021-03-11 07:31 | Outpatient (CLI) | payer OTHER, SELFPAY ==
--- NOTE | 2021-03-11 07:33 | CA_ITS ---
APPROVED REPORT Engagement Quality Consultant: Elise Lawrence RVT Study Quality: Good Indications: Malignant HTN Risk Factors Hypertension Obesity Renal Artery Doppler Origin (R) 143.0/ cm/sec Proximal (R) 131.3/ cm/sec Mid (R) 74.3/ cm/sec Distal (R) 84.2/ cm/sec Renal Aorta Ratio (R) 0.00 Segmental A. (R) 46.6/26.4 cm/sec RI: 0.43 Segmental A. Sup (R) 46.0/26.4 cm/sec Segmental A. Mid (R) 39.0/18.9 cm/sec Segmental A. Inf (R) 25.2/7.6 cm/sec Origin (L) 114.4/ cm/sec Proximal (L) 121.8/ cm/sec Mid (L) 156.0/ cm/sec Distal (L) 101.0/ cm/sec Renal Aorta Ratio (L) 0.00 Segmental A. (L) 32.0/14.8 cm/sec RI: 0.53 Segmental A. Sup (L) 20.3/10.9 cm/sec Segmental A. Mid (L) 24.2/4.7 cm/sec Segmental A. Inf (L) 32.0/14.8 cm/sec Renal Measurements Kidney Size (R) 13.1x8.7 cm Cortical Thickness (R) 1.5 cm Kidney Size (L) 13.5x9.2 cm Cortical Thickness (L) 1.9 cm Findings Study suggests no evidence of stenosis in the bilateral renal arteries. Probable cholelithiasis seen. Conclusion Study suggests no evidence of stenosis in the bilateral renal arteries. Probable cholelithiasis seen. Electronically signed by : Dilip Lam MD 03/13/2021 11:42:05
--- NOTE | 2021-03-11 07:33 | CA_ITS ---
APPROVED REPORT EXAM: Comprehensive 2D, Doppler, and color-flow Echocardiogram Stock Handler: Elise Lawrence RVT Ht: 6 ft 2 in Wt: 292lbs BSA: 2.55 BP: 221/127 mmHg Indications: CP,CAD,EX SMOKER,HTN,OBESITY 2D Dimensions LVOT 2.18 cm (M/F) 1.5-2.5 LA Volume 35.80 mL LA Volume Index 14.03 mL/m2 (M/F) 16-34 M-Mode Dimensions RVDd 3.42 cm (0.9-2.6) LA Diam 4.12 cm (1.9-4.0) LVDd 5.31 cm (3.5-5.7) Ao Diam 3.61 cm (2.0-3.7) LVDs 3.66 cm (3.5-5.7) IVSd 2.29 cm (0.6-1.1) PWd 1.01 cm (0.6-1.1) EF (Teich) 58.40% FS 31.10% EDV (Teich) 135.90 mL TAPSE 2.64 (<1.7) ESV (Teich) 56.60 mL LV Diastology E Decel Time 283.00 (160-240 msec) E/A Ratio 0.7 MED E' 3.60 (< 7 cm/sec) E'/MED E' Ratio 17.97 (>14) LAT E' 6.20 (<10 cm/sec) E/LAT E' Ratio 10.44 (>14) Aortic Valve AI PHT 831.00 ms AO Peak GR. 6.70 mmHg Mitral Valve MV E Max Constantine. 65.00 (40-130 cm/s) MV A Velocity 91.00 (40-130 cm/s) E/A Ratio 0.71 MV Decel. Time 283.00 (160-240 ms) MV PHT 83.00 ms Pulmonary Valve PV Peak Velocity 77.00 (50-150 cm/s) Left Ventricle Left atrium is mildly enlarged, left ventricle is normal size, mild concentric left ventricular hypertrophy, visually estimated ejection fraction 50% with no regional wall motion abnormality, grade 1 diastolic dysfunction seen with tissue Doppler evidence of raise left atrial pressure. Right Ventricle Right atrium and right ventricle are mildly enlarged with normal contractility. Aortic Valve Aortic valve is thickened and calcified without aortic stenosis, there is mild aortic insufficiency. Mitral Valve Mitral valve grossly normal, there is mild mitral regurgitation. Tricuspid Valve Tricuspid valve grossly normal, there is mild tricuspid regurgitation, tricuspid regurgitation jet velocity is inadequate for calculation of the right ventricular systolic pressure. Pulmonic Valve Pulmonic valve is poorly visualized. Bio-prosthetic pulmonic valve is present. Great Vessels Aortic root is normal size. Pericardium No significant pericardial effusion noted. Conclusion 1. Biatrial abdomen, normal left ventricular size, mild concentric left ventricular hypertrophy, visually estimated ejection fraction 50% with no regional wall motion abnormality, grade 1 diastolic dysfunction seen with tissue Doppler evidence of raise left atrial pressure. 2. Mildly enlarged right ventricle with normal contractility 3. Mild aortic, mild mitral and tricuspid regurgitation. 4. No significant pericardial effusion noted. Electronically signed by : Ck Moctezuma, 03/11/2021 08:56:35
--- NOTE | 2021-03-11 07:43 | CT_ITS ---
PROCEDURE: CT CHEST WO CON CLINICAL INDICATION: Chest pain COMPARISON: No exams were available for comparison TECHNIQUE: Axial images obtained with sagittal and coronal reformats. All CT scans at the facility use one or more dose reduction, viz: automated exposure control, ma/kV adjustment per patient size (including targeted exams where dose is matched to indication, i.e. head), or iterative reconstruction technique. FINDINGS: There is aneurysmal dilatation of the ascending thoracic aorta of 5.1 centimeters at the level of the main pulmonary artery, and of 4.6 centimeters at the aortic root. Remainder of the thoracic aorta is normal. Heart is not enlarged. No pericardial effusion or thickening. Great vessels off the aortic arch are normal. There is mild bibasilar atelectasis. No pulmonary consolidation or ground-glass opacities in the lungs. Single small calcified granuloma in the right lung base. There are some calcified mediastinal lymph nodes. Hilar regions grossly appear normal. No enlarged axillary nodes. Airways are patent. Images of the upper abdomen show some diffuse fatty infiltration of the visualized liver. No adrenal mass. Some gallstones are present in the gallbladder. A few tiny calcifications noted in the visualized spleen. Mild degenerative changes of the thoracic spine are noted. No acute bony abnormality. IMPRESSION: Aneurysmal dilatation of the ascending thoracic aorta of 5.1 centimeters at the level of the main pulmonary artery and 4.6 centimeters at the aortic root. Mild bibasilar atelectasis. No pulmonary consolidation or ground-glass opacities. Calcified mediastinal lymph nodes. No adrenal mass. Cholelithiasis. Diffuse fatty infiltration of the visualized liver. Dictated by: Dilip Lam 03/11/2021 09:13 Dilip Lam in [place] 03/11/2021 09:13
== END ==
PROVIDERS: PCP Nurse Practitioner Family; Visit Provider Physician Assistant
DX: I10 Essential (primary) hypertension (principal); I16.0 Hypertensive urgency; R94.31 Abnormal electrocardiogram [ECG] [EKG]; E66.9 Obesity, unspecified; Z68.37 Body mass index [BMI] 37.0-37.9, adult
CPT/HCPCS: 71250; 93306; 93976

== ENCOUNTER → 2021-03-19 08:42 | Outpatient (CLI) | payer OTHER, SELFPAY ==
--- NOTE | 2021-03-19 08:42 | US_ITS ---
PROCEDURE: US GALLBLADDER CLINICAL INDICATION: choleithiasis COMPARISON: CT CT CHEST WO CON from 03/11/2021 FINDINGS: Pancreas: Unremarkable Liver: There is diffuse overall and somewhat coarsened increased echogenicity consistent with diffuse fatty infiltration. There are no focal lesions. There is appropriate direction of blood flow within a non dilated portal vein. Right kidney: Right kidney measures 11.8 x 4.8 6.6 cm and appears sonographically normal. Gallbladder: Gallbladder is normal in size size and shows multiple calcified and partially calcified gallstones layering along the dependent wall showing prominent acoustic shadowing beneath. The common bile duct is borderline dilated at 0.7 cm. There is no intrahepatic ductal dilatation. IMPRESSION: Cholelithiasis and diffuse hepatic steatosis Dictated by: Dr. Jason Cortes MD 03/19/2021 09:58 Dr. Jason Cortes MD in [place] 03/19/2021 09:58
== END ==
PROVIDERS: PCP Nurse Practitioner Family; Visit Provider Physician Assistant
DX: K80.20 Calculus of gallbladder without cholecystitis without obstruction (principal)
CPT/HCPCS: 76705

== ENCOUNTER → 2021-05-07 08:44 | Outpatient (CLI) | payer OTHER, SELFPAY ==
[2021-05-07 09:39] LABS: Basophils # 0.1 K/mm3 (0-0.2); Basophils % 0.9 % (0.1-2.0); Eosinophils # 0.4 K/mm3 (0.0-0.4); Eosinophils % 5.2 % (0.1-12.0); Hematocrit 42.9 % (42.0-52.0); Hemoglobin 14.3 g/dL (14.1-18.0); Lymphocytes # 1.8 K/mm3 (0.7-4.5); Lymphocytes % 26.4 % (10-50); Mean Corpuscular HGB Conc 33.3 g/dL (31.8-35.4); Mean Corpuscular Hemoglobin 28.5 pg (27.0-31.2); Mean Corpuscular Volume 85.5 fl (80-94); Mean Platelet Volume 8.1 fl (7.4-10.4); Monocytes # 0.6 K/mm3 (0.1-1.0); Monocytes % 8.4 % (1.7-9.3); Neutrophils % 59.2 % (37.0-80.0); Platelet Count 220 K/mm3 (142-424); Red Blood Count 5.02 M/mm3 (4.60-6.20); Red Cell Distribution Width 14.3 % (11.5-17.5); White Blood Count 6.8 K/mm3 (4.8-10.8)
[2021-05-07 10:29] LABS: Chloride 106 mmol/L (98-107); Potassium 4.9 mmoL/L (3.5-5.1); Sodium 141 mmol/L (136-145)
[2021-05-07 10:32] LABS: Alanine Aminotransferase 133 U/L (12-78); Albumin Level 4.4 g/dl (3.5-5.0); Albumin/Globulin Ratio 1.3 (1.1-1.8); Alkaline Phosphatase 152 U/L (38-126); Anion Gap 14.9 mEq/L (5-15); Aspartate Amino Transferase 104 U/L (17-59); Bilirubin,Total 0.8 mg/dl (0.2-1.3); Blood Urea Nitrogen 27 mg/dl (9-20); Carbon Dioxide 25 mmol/L (22.0-30.0); Estimated Glomerular Filt Rate 50 ml/min (>60); GFR (African American) 61 ML/MIN (>60); Globulin 3.3 g/dL (1.3-3.2); Total Protein,Serum 7.7 g/dl (6.3-8.2)
[2021-05-07 10:33] LABS: Calcium 9.3 mg/dl (8.4-10.2); Glucose 113 mg/dl (74-100)
== END ==
PROVIDERS: Visit Provider Surgery
DX: Z01.812 Encounter for preprocedural laboratory examination (principal); Z11.52 Encounter for screening for COVID-19; K80.20 Calculus of gallbladder without cholecystitis without obstruction
CPT/HCPCS: 80053; 85025; U0003

== ENCOUNTER 2021-05-09 08:12 | Day surgery (SDC) | payer OTHER, SELFPAY ==
[2021-05-07 10:41] VITALS: BMI 31.9
[2021-05-09] VITALS (11 sets, daily range): BP systolic 119–150; BP diastolic 70–107; PULSE 52–75; RESP 12–20; TEMP 36.3–43; O2SAT 91–97
--- NOTE | 2021-05-09 09:20 | HMH.ANESCL ---
[facility] Anesthesia Checklist - Patient Identification Patient Identification: Arm Band - Structural Data Admitted From: Home Planned Operative Procedure/s: Laparoscopic Cholecystectomy Consent for Planned Operative Procedure(s) Verified: Yes Verified Documents: Surgical Consent, History and Physical - NPO Status Verified Time NPO: 00:00 - Additional verifications Anesthesia Reactions: No Hx Blood Transfusions: No Blood Transfusion Reaction: No - Airway Assessment C-Spine Mobility Assessed: Yes (mp2) TMJ Mobility Assessed: Yes Dentition: Good Dentition - Neurological Assessment Level of Consciousness: Awake, Alert - Anesthesia Plan Anesthesia Risk discussed: Yes Anesthesia Plan: Verified ASA Class: III Anesthesia Type: General [facility] History I have reviewed the patient's past medical history: Yes Medical History: Reports:: Coronary Artery Disease, Hypertension, Migraine, Renal Disease Denies:: Cancer, Diabetes Mellitus Type 1, Diabetes Mellitus Type 2, Internal Pacemaker, MRSA, Seizures *Have you ever received a pneumonia vaccine?: No *Have you received a flu vaccine this season?: No Other Medical History: Reports: Other. Denies: Blood Transfusion Reaction Anesthesia experience/problems:: nac Other Surgeries: Yes: Cardiac Catheterization (heart cath x2), Other. No: Pacemaker Amputation: No Fractures: No - *Social History Last grade of school completed: High school graduate Smoking Status: Never smoker Tobacco Type: smokeless tobacco # Packs/Day (cigarettes): 0 Alcohol Intake: never Alcohol Intake Frequency:: other Substance Use Type: denies use *Occupational Status:: employed Housing: house Household Members: significant other *Travel in the last 8 weeks: None Family Hx:: No significant family history
--- NOTE | 2021-05-09 12:02 | P.OP_ITS ---
Date of procedure: 05/09/21 Pre-op Diagnosis:: Chronic calculus cholecystitis Post-op Diagnosis:: Same Procedure performed:: Laparoscopic cholecystectomy Surgeon:: Jose Borges MD PRECISION AGRONOMIST:: Dean Valdes Anesthesia: GETA Estimated blood loss (mL): 25 Operative findings:: Significant gallbladder distention Fairly severe pericholecystic fat stranding (chronic) and infundibular thickening Operative note:: After informed consent was obtained, the patient was taken to the operating room and placed in the supine position. General anesthesia was induced and the abdomen was prepped and draped in a sterile fashion. After infiltration with local anesthetic an infraumbilical incision was made. A Veress needle was placed in position. The abdomen was insufflated. A 5 mm optical trocar was placed in position. Under direct visualization, a 12 mm trocar was placed in the subxiphoid position and 2 additional 5 mm trocars were placed in the right upper quadrant. The gallbladder was elevated up and over the liver margin. The tissue around the cystic duct was carefully dissected. 3 clips were placed proximally and the duct was transected with harmonic cony. Harmonic cony were then utilized to dissect the gallbladder away from the liver margin with careful attention to the control of the cystic artery. The gallbladder was placed in a retrieval bag and removed through the subxiphoid trocar site. The right upper quadrant was thoroughly irrigated. No active bleeding or bile leak was noted. Fascia at the subxiphoid trocar site was reapproximated utilizing 0 Ethibond. The remaining trocars were removed. All wounds were irrigated and skin was closed with 4-0 Monocryl in a subcuticular fashion. Steri-Strips were applied. The patient's anesthetic agents were reversed and extubation was completed prior to transfer to recovery in stable condition. Condition: stable Disposition: PACU Specimens:: Gallbladder and contents Complications:: No immediate
--- NOTE | 2021-05-09 12:13 | HMH.ANESI ---
[facility] Anesthesia Record Part I Intake, IV Amount: 1,500 Estimated blood loss (mL): 0 Urine output (mL): 0 Blood Pressure: 138/93 SaO2: 94 Pulse Rate: 55 Respiratory Rate: 12 Temperature: 97.8 F Patient is:: Awake, Stable Stable to PACU at:: 12:10
--- NOTE | 2021-05-09 14:01 | P.PN_ITS ---
[facility] Anesthesia Record Part II Discharge Time: 12:40 Destination: Surgical Day Care (OP Surgery) PACU nurse assessment reviewed?: Yes Patient Condition:: Good Anesthesia Complications:: None Swallowing reflex intact?: Yes Cyanosis?: No Blood Pressure: 122/71 Pulse Rate: 60 Temperature: 97.3 F Mental Status: Alert & Oriented Pain level:: 0 Nausea and/or vomitting:: None Intake, IV Amount: 0
== END 2021-05-09 13:15 | disposition home or self-care (01) ==
LOC: OR 08:13
PROVIDERS: PCP Nurse Practitioner Family; Visit Provider Surgery
PROC: 0FT44ZZ Resection of Gallbladder, Percutaneous Endoscopic Approach (ICD-10-PCS; CPT 47562; principal; 2021-05-09 10:15)
DX: K81.1 Chronic cholecystitis (principal); I25.10 Atherosclerotic heart disease of native coronary artery without angina pectoris; I10 Essential (primary) hypertension; G43.909 Migraine, unspecified, not intractable, without status migrainosus; N28.9 Disorder of kidney and ureter, unspecified; Z79.899 Other long term (current) drug therapy
CPT/HCPCS: 47562; 96374; J2405; J2710

== ENCOUNTER 2021-12-15 08:11 | Emergency (ER) | payer OTHER, SELFPAY ==
[2021-12-15 08:12] VITALS: BP 187/134; PULSE 73; RESP 16; TEMP 36.8; O2SAT 97; BMI 34.4
--- NOTE | 2021-12-15 08:19 | ECG_ITS ---
APPROVED REPORT Exam: Resting ECG HR:67 bpm ECG Measurements Heart Rate 67 AXES DE 165 P 55 QRSd 117 QRS -15 QT 392 T 24 QTc 407 Conclusion SINUS RHYTHM MODERATE INTRAVENTRICULAR CONDUCTION DELAY [110+ ms QRS DURATION] NONSPECIFIC T-WAVE ABNORMALITY BORDERLINE ECG UNCONFIRMED REPORT Electronically signed by : Wyatt Edwards MD 12/16/2021 16:40:17
--- NOTE | 2021-12-15 08:34 | PC.NURSE ---
MD at bedside at this time
[2021-12-15 08:40] VITALS: BP 187/126; PULSE 66; RESP 21; O2SAT 94
--- NOTE | 2021-12-15 08:48 | XR_ITS ---
FINAL REPORT CLINICAL HISTORY: Pain into arm; no injury COMPARISON: July 23, 2020 FINDINGS: 3 views of the left shoulder were obtained. There is no acute fracture or dislocation. The joint spaces are intact. There are no soft tissue abnormalities. IMPRESSION: No acute process. Reviewed, Interpreted and Dictated by Raul Jeffers MD Transcribed by Larry Swenson Authenticated by Raul Jeffers MD on 12/15/2021 09:26:52 AM [facility]
--- NOTE | 2021-12-15 08:53 | PC.NURSE ---
Dr. Bermudez paged
--- NOTE | 2021-12-15 08:54 | PC.NURSE ---
AMISHA GUTIERREZ on phone with Dr. Bermudez
--- NOTE | 2021-12-15 08:56 | PC.NURSE ---
ED MD at to update patient on POC
--- NOTE | 2021-12-15 09:00 | CT_ITS ---
FINAL REPORT TECHNIQUE: Thin section axial CT images were obtained from the lung apices to the upper abdomen. IV contrast was administered. MIP 3-D reformats were obtained. This study was performed with techniques to keep radiation doses as low as reasonably achievable (ALARA). Individualized dose reduction techniques using automated exposure control or adjustment of mA and/or kV according to the patient's size were employed. CLINICAL HISTORY: Aortic root aneurym -- CTA dissection -- gave 100ml of isovue 370 for contrast study // did an additonal pass to try and see descending aorta COMPARISON: March 11, 2021 FINDINGS: The heart size is normal. There is no adenopathy. There is no filling defect to suggest PE. The aortic root is abnormally enlarged up to 4.6 cm, similar to the previous exam. There is no aortic dissection. There is no pericardial effusion. There is no suspicious infiltrate or nodule. No pleural effusion. Limited images of the upper abdomen demonstrate mild fatty infiltration of the liver. The gallbladder surgically absent. IMPRESSION: Abnormally enlarged aortic root up to 4.6 cm, similar to prior. Reviewed, Interpreted and Dictated by Raul Jeffers MD Transcribed by Larry Swenson Authenticated by Raul Jeffers MD on 12/15/2021 10:41:30 AM [facility]
--- NOTE | 2021-12-15 09:03 | PC.NURSE ---
Notified Rad of image orders
--- NOTE | 2021-12-15 09:06 | PC.NURSE ---
patient to radiology with in flight technician
[2021-12-15 09:22] LABS: Basophils # 0.1 K/mm3 (0-0.2); Basophils % 1.2 % (0.1-2.0); Eosinophils # 0.2 K/mm3 (0.0-0.4); Eosinophils % 2.8 % (0.1-12.0); Hematocrit 46.2 % (42.0-52.0); Hemoglobin 15.1 g/dL (14.1-18.0); Lymphocytes # 1.3 K/mm3 (0.7-4.5); Lymphocytes % 20.2 % (10-50); Mean Corpuscular HGB Conc 32.6 g/dL (31.8-35.4); Mean Corpuscular Hemoglobin 29.5 pg (27.0-31.2); Mean Corpuscular Volume 90.3 fl (80-94); Mean Platelet Volume 9.2 fl (7.4-10.4); Monocytes # 0.4 K/mm3 (0.1-1.0); Monocytes % 5.9 % (1.7-9.3); Neutrophils # 4.3 K/mm3 (1.8-7.8); Platelet Count 220 K/mm3 (142-424); Red Blood Count 5.11 M/mm3 (4.60-6.20); Red Cell Distribution Width 14.8 % (11.5-17.5); White Blood Count 6.2 K/mm3 (4.8-10.8)
[2021-12-15 09:24] LABS: Chloride 107 mmol/L (98-107); Potassium 4.4 mmoL/L (3.5-5.1); Sodium 139 mmol/L (136-145)
[2021-12-15 09:26] LABS: Alanine Aminotransferase 72 U/L (12-78); Aspartate Amino Transferase 68 U/L (17-59); Blood Urea Nitrogen 18 mg/dl (9-20); Creatinine Clearance Estimated 104 mL/min (50-200); Estimated Glomerular Filt Rate 50 ml/min (>60); GFR (African American) 60 ML/MIN (>60)
[2021-12-15 09:27] LABS: Albumin/Globulin Ratio 1.1 (1.1-1.8); Alkaline Phosphatase 121 U/L (38-126); Anion Gap 9.4 mEq/L (5-15); Bilirubin,Total 1.2 mg/dl (0.2-1.3); Calcium 8.5 mg/dl (8.4-10.2); Carbon Dioxide 27 mmol/L (22.0-30.0); Globulin 3.5 g/dL (1.3-3.2); Glucose 115 mg/dl (74-100); Total Protein,Serum 7.5 g/dl (6.3-8.2)
[2021-12-15 09:28] VITALS: BP 178/129; PULSE 73; RESP 15; O2SAT 98
--- NOTE | 2021-12-15 09:32 | PC.NURSE ---
patient to CT with radio time sales supervisor
[2021-12-15 09:43] LABS: Troponin I < 0.01 ng/ml (0.00-0.034)
[2021-12-15 09:46] VITALS: BP 162/121; PULSE 67; RESP 15; O2SAT 98
--- NOTE | 2021-12-15 09:57 | PC.NURSE ---
patient ambulatory to restroom
--- NOTE | 2021-12-15 10:00 | PC.NURSE ---
patient back from restroom; hooked back up to monitor
[2021-12-15 10:57] VITALS: BP 175/103
--- NOTE | 2021-12-15 11:01 | HMH.EDGENADL ---
ED Disposition Clinical Impression: Aortic root dilation Disposition: Left Against Medical Advice Condition on Discharge: Serious Instructions: Hydralazine Additional Instructions: Please return to the ED for systolic pressures over 150 consistently, chest pain, dizziness, altered mental status, severe chest pain, shortness of breath or palpitations. Even though you are leaving AGAINST MEDICAL ADVICE you are welcome to return at any time for further treatment. Prescriptions: Amlodipine Besylate [Amlodipine 10mg Tab] 10 mg PO DAILY #30 tab Transmission Status: Received by [facility] Referrals: Edita Rascon APRN [Primary Care Provider] - - Critical Care Critical Care Time: Yes Attestation: On 12/15/21, the high probability of a clinically significant, sudden or life threatening deterioration of the following system(s) required my full and direct attention, intervention and personal management. The time I documented below is in addition to time spent performing reported procedures but includes the following listed in this critical care notation. Total Critical Care Time: 35 Vital system(s) involved:: Circulatory Failure My critical care processes included: Assessment & monitoring of V/S, Initial and Re-exams, Data Review/Interpretation, Coordinating Care, Medication Orders and management, Documentation Medical Decision Making - Medical Records Medical records reviewed: Yes: I reviewed the patient's medical records. - Maximo Inquiry Pt receiving controlled substance: No Vital Signs: 12/15/21 08:12 12/15/21 08:40 12/15/21 09:28 Temperature 98.2 F Temperature Source Oral Pulse Rate 66 73 Pulse Rate [Right Radial] 73 Respiratory Rate 16 21 15 Blood Pressure 187/126 H 178/129 H Blood Pressure [Right Arm] 187/134 H Blood Pressure Mean [Right Arm] 151 Blood Pressure Source [Right Arm] Automatic Cuff Blood Pressure Position [Right Arm] Sitting 02 Sat by Pulse Oximetry 97 94 L 98 Oxygen Delivery Method Room Air Room Air Room Air 12/15/21 09:46 12/15/21 10:57 Temperature Temperature Source Pulse Rate 67 Pulse Rate [Right Radial] Respiratory Rate 15 Blood Pressure 162/121 H 175/103 H Blood Pressure [Right Arm] Blood Pressure Mean [Right Arm] Blood Pressure Source [Right Arm] Blood Pressure Position [Right Arm] 02 Sat by Pulse Oximetry 98 Oxygen Delivery Method Room Air - Lab Data Lab Results 12/15/21 08:58: WBC 6.2, RBC 5.11, Hgb 15.1, Hct 46.2, MCV 90.3, MCH 29.5, MCHC 32.6, RDW 14.8, Plt Count 220, MPV 9.2, Neut % (Auto) 70.0, Lymph % (Auto) 20.2, Carlton % (Auto) 5.9, Eos % (Auto) 2.8, Baso % (Auto) 1.2, Neut # (Auto) 4.3, Lymph # (Auto) 1.3, Carlton # (Auto) 0.4, Eos # (Auto) 0.2, Baso # (Auto) 0.1 12/15/21 08:58: Sodium 139, Potassium 4.4, Chloride 107, Carbon Dioxide 27, Anion Gap 9.4, BUN 18, Creatinine 1.50 H, Estimated Creat Clear 104, Estimated GFR 50 L, Est GFR ( Amer) 60, Glucose 115 H, Calcium 8.5, Total Bilirubin 1.2, AST 68 H, ALT 72, Alkaline Phosphatase 121, Troponin I < 0.01, Total Protein 7.5, Albumin 4.0, Globulin 3.5 H, Albumin/Globulin Ratio 1.1 12/15/21 10:00: Urine Color Yellow, Urine Appearance Clear, Urine pH 7.0, Ur Specific Stollings 1.015, Urine Protein 1+, Urine Glucose (UA) Negative, Urine Ketones Negative, Urine Blood Negative, Urine Nitrate Negative, Urine Bilirubin Negative, Urine Urobilinogen 0.2, Ur Leukocyte Esterase Negative, Urine RBC None, Urine WBC None, Ur Squamous Epith Cells None, Urine Bacteria None Result diagrams: 12/15/21 08:58 12/15/21 08:58 Orders (Tests/Meds): ED MEDICATIONS Generic Name Dose Route Start Last Admin Trade Name Freq PRN Reason Stop Dose Admin Sodium Chloride 10 ml 12/15/21 09:59 Sodium Chloride 0.9% 10ml Flush Syringe IV 01/14/22 09:58 NEEDED PRN Maintain IV Site Discontinued Medications Generic Name Dose Route Start Last Admin Trade Name Freq PRN Reason Stop D
[2021-12-15 11:14] LABS: Microscopic, Urine URINE MICROSCOPIC (MICROSCOPIC)
[2021-12-15 11:18] LABS: Appearance,Urine CLEAR (Clear); Bilirubin,Urine Negative (Negative); Blood, Urine Negative (Negative); Color,Urine YELLOW (Yellow); Glucose,Urine (UA) Negative (Negative); Ketones,Urine Negative (Negative); Leukocyte Esterase,Urine Negative (Negative); Nitrate,Urine Negative (Negative); Protein,Urine 1+ (Negative); Specific Gravity, Urine 1.015 (1.005-1.030); Urobilinogen,Urine 0.2 EU/dl (0.2)
--- NOTE | 2021-12-15 11:46 | PC.NURSE ---
ED MD at for update on POC
[2021-12-15 12:01] VITALS: BP 174/132; PULSE 71; RESP 16; TEMP 36.8; O2SAT 94
== END 2021-12-15 12:01 | disposition left against medical advice (07) ==
PROVIDERS: Emergency Provider Student in an Organized Health Care Education/Training Program; PCP Nurse Practitioner Family
DX: I77.819 Aortic ectasia, unspecified site (principal); I16.0 Hypertensive urgency; I25.10 Atherosclerotic heart disease of native coronary artery without angina pectoris; E78.5 Hyperlipidemia, unspecified; N18.4 Chronic kidney disease, stage 4 (severe)
CPT/HCPCS: 71275; 73030; 80053; 81001; 84484; 85025; 93005; 96374; 96375; 96376; 99284; Q9967

== ENCOUNTER → 2022-01-09 19:59 | Outpatient (CLI) | payer OTHER, SELFPAY ==
[2022-01-09 13:35] LABS: Adenovirus,PCR Not Detected (NotDetected); Bordetella Pertussis Not Detected (NotDetected); Chlamydophila Pneumoniae, PCR Not Detected (NotDetected); Coronavirus 19, PCR Not Detected (NotDetected); Coronavirus 229E Not Detected (NotDetected); Coronavirus NL63 Not Detected (NotDetected); Coronavirus OC43 Not Detected (NotDetected); Coronovirus HKU1,PCR Not Detected (NotDetected); Human Metapneumovirus Not Detected (NotDetected); Influenza A, PCR Not Detected (NotDetected); Influenza AH1, 2009 Not Detected (NotDetected); Influenza AH1, PCR Not Detected (NotDetected); Influenza AH3,PCR Not Detected (NotDetected); Influenza B, PCR Not Detected (NotDetected); Mycoplasma Pneumoniae, PCR Not Detected (NotDetected); Parainfluenza 1, PCR Not Detected (NotDetected); Parainfluenza 2, PCR Not Detected (NotDetected); Parainfluenza 3, PCR Not Detected (NotDetected); Parainfluenza 4, PCR Not Detected (NotDetected); Respiratory Syncytial Virus Not Detected (NotDetected); Rhinovirus/Enterovirus Not Detected (NotDetected)
== END ==
PROVIDERS: PCP Nurse Practitioner Family; Visit Provider Nurse Practitioner Family
DX: Z11.52 Encounter for screening for COVID-19 (principal); R05.9 Cough, unspecified
CPT/HCPCS: 87581; 87632; 87798; C9803; U0003; U0005

== ENCOUNTER 2022-06-10 08:49 | Emergency (ER) | payer OTHER, SELFPAY ==
[2022-06-10] VITALS (23 sets, daily range): BP systolic 139–186; BP diastolic 103–144; PULSE 72–84; RESP 17–22; TEMP 37; O2SAT 95–98; BMI 31.1
--- NOTE | 2022-06-10 08:47 | ECG_ITS ---
APPROVED REPORT Exam: Resting ECG HR:78 bpm ECG Measurements Heart Rate 78 AXES CA 161 P 67 QRSd 124 QRS -28 QT 360 T 6 QTc 393 Conclusion SINUS RHYTHM BORDERLINE LEFT AXIS DEVIATION [QRS AXIS < -20] MODERATE INTRAVENTRICULAR CONDUCTION DELAY [110+ ms QRS DURATION] BORDERLINE ECG UNCONFIRMED REPORT Electronically signed by : Wyatt Edwards MD 06/10/2022 17:37:14
--- NOTE | 2022-06-10 08:55 | PC.NURSE ---
at the bedside
--- NOTE | 2022-06-10 08:57 | XR_ITS ---
FINAL REPORT CLINICAL HISTORY: chest pain FINDINGS: Two views of the chest were obtained. A loop recorder is present. The heart size and pulmonary vascularity are within normal limits. The mediastinum is normal. No acute pulmonary abnormality is identified. There is no pneumothorax. The bony thorax is intact. IMPRESSION: No acute cardiopulmonary process. Reviewed, Interpreted and Dictated by Tyler Godinez III, MD Transcribed by Silvia Morse Authenticated and . [facility]
--- NOTE | 2022-06-10 08:57 | CT_ITS ---
FINAL REPORT TECHNIQUE: Then section axial CT images of the chest were obtained with contrast. Three-D reformatted images were also obtained.This study was performed with techniques to keep radiation doses as low as reasonably achievable (ALARA). Individualized dose reduction techniques using automated exposure control or adjustment of mA and/or kV according to the patient''s size were employed. CLINICAL HISTORY: chest pain since last pm. COMPARISON: December 15, 2021 FINDINGS: There is no evidence of pulmonary embolism. There is stable aneurysmal dilatation of the ascending aorta at 4.6 cm. There is no dissection. There is no evidence of mediastinal or hilar mass or adenopathy. Lung window images demonstrate mild atelectasis. There are several calcified granulomas. There is no evidence of pulmonary mass or suspicious nodule. No localized inflammatory process is seen within the lungs. Limited images of the upper abdomen are unremarkable. IMPRESSION: 1. No evidence of pulmonary embolism. 2. Stable aneurysmal dilatation of the ascending aorta. Reviewed, Interpreted and Dictated by Tyler Godinez III, MD Transcribed by Larry Swenson Authenticated and [facility]
--- NOTE | 2022-06-10 08:58 | HMH.EDCP ---
Discharge Plan Disposition Patient Disposition: Left Against Medical Advice Condition: Serious Clinical Impressions Clinical Impression: Malignant hypertension Discharge ED Provider: Kalyan Nascimento Chest Pain HPI General Chief Complaint: Chest Pain Stated Complaint: chest pain Time Seen by Provider: 06/10/22 08:57 History of Present Illness HPI narrative: Presents complaint of chest pain that began yesterday evening. He was at rest at the time of pain onset which he describes as moderate and without exacerbating or alleviating factors. Denies associated nausea or diaphoresis or dyspnea. He states he has had similar episodes of pain in the past. He denies any known history of coronary artery disease but states that he does have an aneurysm in his chest. Related Data Home Medications Medication Instructions Recorded Confirmed amlodipine 10 mg tablet 10 mg PO DAILY high blood presure 06/10/22 06/10/22 metoprolol succinate 50 mg 50 mg PO DAILY cardiac 06/10/22 06/10/22 tablet,extended release 24 hr Previous Rx's Medication Instructions Recorded lisinopril 20 mg tablet 20 mg PO DAILY HTN #30 tabs 12/22/21 Allergies Allergy/AdvReac Type Severity Reaction Status Date / Time No Known Allergies Allergy Verified 01/09/22 11:12 [facility] Medical History (Updated 06/10/22 @ 11:18 by Kalyan Nascimento MD) Abnormal EKG Aortic root enlargement Diastolic dysfunction, left ventricle HTN (hypertension) Malignant hypertension Thoracic aortic aneurysm Social History Smoking Status: Never smoker alcohol intake: never substance use type: denies use current occupational status: employed Travel in the last 8 weeks: None household members: significant other housing: house caffeine: Yes ROS Obtained: Yes All systems reviewed & no additional complaints except as documented Constitutional Constitutional: Reports system reviewed and no additional complaints, except as documented Physical Exam General General appearance: alert and in no apparent distress Head Head exam: atraumatic Eye Eye exam: Present normal appearance ENT ENT exam: Present normal exam Neck Neck exam: Present normal inspection Chest Chest inspection: Present normal inspection Respiratory Respiratory exam: Present normal lung sounds bilaterally; Absent respiratory distress Cardiovascular Cardiovascular exam: Present regular rate and normal rhythm Abdominal Exam Abdominal exam: Present soft; Absent tenderness Back Exam Back exam: Present normal inspection Neurological Exam Neurological exam: Present alert Psychiatric Psychiatric exam: Present normal affect Skin Skin exam: Present warm and dry Lymphatic Lymphatic Findings: no adenopathy Medical Decision Making Medical Records Medical records reviewed: Yes I reviewed the patient's medical records. Maximo Inquiry Pt receiving controlled substance: Yes Maximo was queried for this patient: No Reason not queried -: Emergent pt cond-no time Risks and benefits of using a controlled substance: were not discussed with pt by me Vital Signs: 06/10/22 08:59 06/10/22 09:00 06/10/22 09:17 Temperature 98.6 F Temperature Source Oral Pulse Rate 84 Pulse Rate [Left Radial] 84 Respiratory Rate 18 Blood Pressure 151/109 H Blood Pressure [Right Arm] 166/129 H Blood Pressure Mean Blood Pressure Mean [Right Arm] 141 02 Sat by Pulse Oximetry 97 Oxygen Delivery Method Room Air 06/10/22 09:10 06/10/22 09:15 06/10/22 09:31 Temperature Temperature Source Pulse Rate 76 78 73 Pulse Rate [Left Radial] Respiratory Rate 22 19 20 Blood Pressure 144/110 H 139/103 H 178/123 H Blood Pressure [Right Arm] Blood Pressure Mean 124 114 134 Blood Pressure Mean [Right Arm] 02 Sat by Pulse Oximetry 95 95 95 Oxygen Delivery Method 06/10/22 09:36 06/10/22 09:41 06/10/22 09:45 Temperature Temperature Source Pulse Rate 79 75 75 Pulse R
--- NOTE | 2022-06-10 09:00 | PC.NURSE ---
pt medicated per MAR for bp
[2022-06-10 09:08] LABS: Basophils # 0.2 K/mm3 (0-0.2); Basophils % 2.3 % (0.1-2.0); Eosinophils # 0.2 K/mm3 (0.0-0.4); Eosinophils % 2.1 % (0.1-12.0); Hematocrit 47.7 % (42.0-52.0); Hemoglobin 15.9 g/dL (14.1-18.0); Lymphocytes % 13.8 % (10-50); Mean Corpuscular HGB Conc 33.3 g/dL (31.8-35.4); Mean Corpuscular Hemoglobin 29.4 pg (27.0-31.2); Mean Corpuscular Volume 88.2 fl (80-94); Monocytes # 0.9 K/mm3 (0.1-1.0); Monocytes % 12.8 % (1.7-9.3); Neutrophils # 4.8 K/mm3 (1.8-7.8); Platelet Count 220 K/mm3 (142-424); Red Blood Count 5.41 M/mm3 (4.60-6.20); Red Cell Distribution Width 14.5 % (11.5-17.5)
[2022-06-10 09:11] LABS: Anion Gap 11.1 mEq/L (5-15); Blood Urea Nitrogen 15 mg/dl (9-20); Calcium 8.9 mg/dl (8.4-10.2); Carbon Dioxide 28 mmol/L (22.0-30.0); Chloride 104 mmol/L (98-107); Creatinine Clearance Estimated 103 mL/min (50-200); Estimated Glomerular Filt Rate 59 ml/min (>60); GFR (African American) 71 ML/MIN (>60); Glucose 101 mg/dl (74-100); Potassium 4.1 mmoL/L (3.5-5.1); Sodium 139 mmol/L (136-145)
--- NOTE | 2022-06-10 09:20 | PC.NURSE ---
pt to xray
--- NOTE | 2022-06-10 09:24 | PC.NURSE ---
pt was taken by Radiology
[2022-06-10 09:25] LABS: Troponin I < 0.01 ng/ml (0.00-0.034)
--- NOTE | 2022-06-10 09:29 | PC.NURSE ---
pt back from xr
--- NOTE | 2022-06-10 09:29 | PC.NURSE ---
pt back from radiology
--- NOTE | 2022-06-10 10:07 | PC.NURSE ---
pt medicated per MAR
--- NOTE | 2022-06-10 10:53 | PC.NURSE ---
paged cardiology PA per MD request
--- NOTE | 2022-06-10 11:00 | PC.NURSE ---
spoke with AIMEE Callaway in cardiology. PCP to be called for possible admit
--- NOTE | 2022-06-10 11:02 | PC.NURSE ---
Dr Home casas
--- NOTE | 2022-06-10 11:03 | PC.NURSE ---
RADHA GUTIERREZ speaking with Dr. Bhat
--- NOTE | 2022-06-10 11:03 | PC.NURSE ---
speaking to dr keith
--- NOTE | 2022-06-10 11:05 | PC.NURSE ---
covid swab sent to the lab
--- NOTE | 2022-06-10 11:06 | PC.NURSE ---
notified care management of admission, spoke with
--- NOTE | 2022-06-10 11:09 | PC.NURSE ---
SWABBED FOR COVID FOR HIS ADMMISSION
[2022-06-10 11:12] LABS: Influenza A, PCR Not Detected (NotDetected); Influenza B, PCR Not Detected (NotDetected)
--- NOTE | 2022-06-10 11:15 | PC.NURSE ---
ER notified nursing staff at this time, pt is requesting to leave AMA. Notified care management
--- NOTE | 2022-06-10 11:18 | PC.NURSE ---
pt educated on risks of leaving the hospital, pt leaving AMA. Form signed by pt. IV d/c before leaving.
--- NOTE | 2022-06-10 11:19 | PC.NURSE ---
notified cardiology office pt has left AMA, spoke with emilio.
--- NOTE | 2022-06-10 11:32 | PC.NURSE ---
notified dr. keith pt left AMA
[2022-06-10 12:11] LABS: Coronavirus 19, PCR Detected (NotDetected)
== END 2022-06-10 11:22 | disposition left against medical advice (07) ==
LOC: ER 09:40 → 2ND 11:18
PROVIDERS: Emergency Provider Emergency Medicine; PCP Emergency Medicine
DX: I10 Essential (primary) hypertension (principal); Z53.29 Procedure and treatment not carried out because of patient's decision for other reasons; Z79.899 Other long term (current) drug therapy; I51.9 Heart disease, unspecified; I72.9 Aneurysm of unspecified site
CPT/HCPCS: 71046; 71275; 80048; 84484; 85025; 93005; 96374; 96375; 96376; 99285; C9803; Q9967; U0003; U0005

== ENCOUNTER 2022-06-17 09:35 | Emergency (ER) | payer OTHER, SELFPAY ==
[2022-06-17 09:43] VITALS: BP 153/129; PULSE 74; RESP 18; O2SAT 98; BMI 32.1
[2022-06-17 10:15] VITALS: BP 137/101; PULSE 78; RESP 19; TEMP 36.7; O2SAT 98; BMI 32.1
--- NOTE | 2022-06-17 10:40 | EXP.UTC ---
Discharge Plan Disposition Patient Disposition: Home, Self-Care Condition: Good Prescriptions Prescriptions: New methocarbamol 500 mg tablet 500 mg PO TID PRN (Reason: muscle spasm) Qty: 15 0RF No Action lisinopril 20 mg tablet 20 mg PO DAILY Qty: 30 5RF metoprolol succinate 50 mg tablet extended release 24 hr 50 mg PO DAILY Rx Instructions: TAKE 1 TABLET BY MOUTH ONCE DAILY amlodipine 10 mg tablet 10 mg PO DAILY Rx Instructions: TAKE 1 TABLET BY MOUTH ONCE DAILY Referrals Follow up/Referrals: Provider,Referral, MD [Primary Care Provider] - See instructions Activity Restrictions/Add. Instructions Additional Instructions/Restrictions: *Ibuprofen kaleb 6 hours with meal as needed for pain/inflammation if you can take it if not take Tylenol *Ice 20 minutes every 2 hours for the first 48 hours after the initial injury followed by moist heat every 20 minutes 3-4 times a day to affected area *Muscle relaxer every 8 hours as needed for muscle spasms but remember, it WILL cause drowsiness You cannot take it and drive, operate machinery or care for small children. *Keep this area active, no movement leads to more stiffness, However take it easy and avoid heavy lifting pushing or pulling *Follow up with you family doctor if no improvement for further treatmen Straight to the ER if any life threatening symptoms Clinical Impressions Clinical Impression: Muscle spasm Stand Alone Forms Stand Alone Forms: Work/School Release Instructions Patient Instructions: DI for Muscle Spasm, Methocarbamol Discharge ED Provider: Chantel Almaraz [facility] HPI General Stated complaint: pain in R arm up to neck Mode of Arrival: Ambulatory Source of Information: Patient Limitations: No Limitations Time Seen by Provider: 06/17/22 10:40 Description of Symptoms (Recalled from Triage Doc. by RN): PATIENT C/O PAIN TO RIGHT ARM AND SHOULDER THAT RADIATES INTO NECK AND HEAD. 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 ALSO C/O NAUSEA SINCE THIS MORNING HEENT Symptoms (Recalled from RN notes): No Resp Symptoms (Recalled from RN notes): No Skin Symptoms (Recalled from RN notes): No MS Symptoms (Recalled from RN notes): Yes Functional Status (Recalled from RN notes): WNL History of Present Illness Provider Complaint: Patient states that he dose alot of heavy lifting at work and has been having spasm like pain in his right shoulder area for about 2 weeks that at times with certain movements goes up into his neck and base of head and sometimes will shoot down his right arm States that pain is worse with movement of his head States that pain worse when he tries to turn his head in right shoulder and neck area Denies known injury States that he had COVID last week and was laying around and it made it worse States that today he was still having spasms and pain so he came in Related Data Home Medications Medication Instructions Recorded Confirmed amlodipine 10 mg tablet 10 mg PO DAILY high blood presure 06/10/22 06/10/22 metoprolol succinate 50 mg 50 mg PO DAILY cardiac 06/10/22 06/10/22 tablet,extended release 24 hr Previous Rx's Medication Instructions Recorded lisinopril 20 mg tablet 20 mg PO DAILY HTN #30 tabs 12/22/21 methocarbamol 500 mg tablet 500 mg PO TID PRN muscle spasm #15 06/17/22 tabs Allergies Allergy/AdvReac Type Severity Reaction Status Date / Time No Known Allergies Allergy Verified 01/09/22 11:12 Worker's Comp Is this a Worker's Comp case?: No PFSH [facility] Medical History (Updated 06/17/22 @ 10:59 by Chantel Almaraz APRN) Abnormal EKG Aortic root enlargement Diastolic dysfunction, left ventricle HTN (hypertension) Malignant hypertension Thoracic aortic aneurysm Social History (Updated 06/17/22 @ 10:32 by Marbella Carter RN) Smoking Status: Never smoker alcohol intake: never substance use type: denies use current occupational status: employed Travel in the last 8 we
[2022-06-17 11:00] VITALS: BP 137/101; PULSE 78; RESP 19; TEMP 36.7; O2SAT 98
== END 2022-06-17 11:04 | disposition home or self-care (01) ==
LOC: ER 09:45 → UTC 09:46
PROVIDERS: Emergency Provider Nurse Practitioner
DX: M62.838 Other muscle spasm (principal); Z86.16 Personal history of COVID-19
CPT/HCPCS: 99212; G0463

== ENCOUNTER 2022-07-26 13:18 | Emergency (ER) | payer OTHER, SELFPAY ==
[2022-07-26 13:19] VITALS: BP 136/94; PULSE 73; RESP 16; TEMP 36.8; O2SAT 96; BMI 36.1
--- NOTE | 2022-07-26 13:45 | HMH.EDGENADL ---
Discharge Plan Disposition Patient Disposition: Home, Self-Care Condition: Good Prescriptions Prescriptions: New prednisone 20 mg tablet 20 mg PO BID Qty: 10 0RF hydrocodone-acetaminophen 5-325 mg tablet 1 tab PO Q6H PRN (Reason: pain) Qty: 10 0RF No Action lisinopril 20 mg tablet See Rx Instructions .ROUTE .COMPLEX Qty: 30 4RF Dose Instruction: TAKE 1 TABLET BY MOUTH DAILY FOR HYPERTENSION Rx Instructions: TAKE 1 TABLET BY MOUTH DAILY FOR HYPERTENSION amlodipine 10 mg tablet See Rx Instructions .ROUTE .COMPLEX Qty: 30 1RF Dose Instruction: TAKE 1 TABLET BY MOUTH ONCE DAILY Rx Instructions: TAKE 1 TABLET BY MOUTH ONCE DAILY methocarbamol 500 mg tablet 500 mg PO TID PRN (Reason: muscle spasm) Qty: 15 0RF metoprolol succinate 50 mg tablet extended release 24 hr 50 mg PO DAILY Rx Instructions: TAKE 1 TABLET BY MOUTH ONCE DAILY Referrals Follow up/Referrals: Valerio Coles APRN [Primary Care Provider] - See instructions Activity Restrictions/Add. Instructions Additional Instructions/Restrictions: Prednisone as prescribed. Rocky Face as needed for pain. Wrist brace as needed. Follow-up with primary care provider next week. Additional instructions for CONTROLLED SUBSTANCES: You have been prescribed a medication that is a controlled substance. Controlled substances include pain medications known as opiates and sedative nerve medications known as benzodiazepines. Tramadol, fioricet, and gabapentin are also controlled substances. Some common opiates include: Codeine (such as Tylenol #3) Hydrocodone (Vicodin, Lortab, Lorcet, Rocky Face) Oxycodone (Percocet, Percodan, Oxycodone, Oxy IR) Some common benzodiazepines include: Diazepam (Valium) Lorazepam (Ativan) Alprazolam (Xanax) Clonazepam (Klonopin) Oxazepam (Serax) All of these controlled substances are highly addictive and frequently abused. Misuse can and frequently does lead to addiction as well as overdose and . Medication should be stored in a locked cabinet or other secure storage unit. Do not store the medication in a motor vehicle. Short term supplies, 3 days or less, are prescribed because of the highly addictive nature of the medication. Any of the controlled substance medication NOT taken should be disposed of properly and NOT SAVED. The recommended method of disposing of unused medications is: Place the medicines in a sealable plastic bag. If the medicine is a solid, crush it or add water to dissolve it. Add something undesirable (cat litter, coffee grounds, etc.) Dispose of sealed bag in household trash Do not flush or pour unused medicines down a sink or drain. Controlled substances should not be shared, given away or sold. Because of the addictive nature and frequent abuse, these medications are sometimes stolen. These medications should be kept in a safe place where they cannot be stolen. Do not keep them in your car or purse. Lost or stolen prescriptions for controlled substances WILL NOT BE REFILLED in this emergency department, regardless of whether a police report was filed. Clinical Impressions Clinical Impression: Gout attack Instructions Patient Instructions: DI for Gout Discharge ED Provider: Watson Higgins General Adult HPI General Stated complaint: pain in Lt wrist, swollen Time Seen by Provider: 07/26/22 13:37 History of Present Illness HPI narrative: Left wrist pain and swelling since yesterday. No injury. No fever. History of gout. Previous attack of gout in the same wrist several years ago, treated with prednisone. He has stage IV kidney disease. He is not on any prophylactic medication for gout. Related Data Home Medications Medication Instructions Recorded Confirmed metoprolol succinate 50 mg 50 mg PO DAILY cardiac 06/10/22 06/10/22 tablet,extended release 24 hr Previous Rx's Medication Instructions Recorded m
[2022-07-26 14:05] VITALS: BP 136/94; PULSE 73; RESP 16; TEMP 36.8; O2SAT 96
== END 2022-07-26 14:05 | disposition home or self-care (01) ==
PROVIDERS: Emergency Provider Emergency Medicine; PCP Nurse Practitioner Family
DX: M10.9 Gout, unspecified (principal); N18.4 Chronic kidney disease, stage 4 (severe); Z79.899 Other long term (current) drug therapy; I10 Essential (primary) hypertension; Z86.79 Personal history of other diseases of the circulatory system
CPT/HCPCS: 99283

== ENCOUNTER 2022-10-02 19:27 | Emergency (ER) | payer OTHER, SELFPAY ==
[2022-10-02 20:05] VITALS: BP 166/99; PULSE 76; RESP 18; TEMP 36.8; O2SAT 98; BMI 35.9
[2022-10-02 20:16] LABS: UTC Strep Screen (Rapid) Positive (Negative)
--- NOTE | 2022-10-02 20:30 | EXP.UTC ---
Discharge Plan Disposition Patient Disposition: Home, Self-Care Condition: Good Prescriptions Prescriptions: New penicillin V potassium 500 mg tablet 500 mg PO BID 10 Days Qty: 20 0RF No Action ondansetron HCl 8 mg tablet 8 mg PO Q12H Qty: 30 0RF lisinopril 20 mg tablet See Rx Instructions .ROUTE .COMPLEX Qty: 30 4RF Dose Instruction: TAKE 1 TABLET BY MOUTH DAILY FOR HYPERTENSION Rx Instructions: TAKE 1 TABLET BY MOUTH DAILY FOR HYPERTENSION metoprolol succinate 50 mg tablet extended release 24 hr 50 mg PO DAILY Qty: 30 6RF Rx Instructions: TAKE 1 TABLET BY MOUTH ONCE DAILY amlodipine 10 mg tablet See Rx Instructions .ROUTE .COMPLEX Qty: 30 0RF Dose Instruction: TAKE 1 TABLET BY MOUTH ONCE DAILY Rx Instructions: TAKE 1 TABLET BY MOUTH ONCE DAILY Referrals Follow up/Referrals: Valerio Coles APRN [Primary Care Provider] - See instructions Activity Restrictions/Add. Instructions Additional Instructions/Restrictions: *Monitor Temp, Over the counter Motrin or Tylenol as directed/as needed Tylenol every 4 hours and Motrin every 6 hours (as long as your family doctor has told you that you can take it) for fever or pain. and straight to ER if unable to lower temp less than 101.0 after medication given *Warm salt water gargles may help to soothe the throat *Throat Lozenges? *Warm fluids like tea with honey may help to soothe the throat? *Sleep elevated *Humidifier/Vaporizer *If you did not take Penicillin shot or was unable to, start taking antibiotic immediately and make sure that you take it for the FULL length of time although you should start to feel better in 24-48 hours *change toothbrush and toothpaste 24-48 hours after starting to take antibiotics so you do not reinfect yourself Monitor Temp. Tylenol and/or Ibuprofen as needed. ER if fever is no less than 101 despite alternating Tylenol and Ibuprofen * Encourage fluids, water, Gatorade, powerade, pedialyte if infant/toddler/or child *Cold fluids, popsicles and ice cream may feel good on his throat Follow up IMMEDIATELY for new or worsening symptoms or no Noticeable improvement over the next 48-72 hours. 911 for difficulty breathing or swallowing Clinical Impressions Clinical Impression: Strep throat Instructions Patient Instructions: Strep Throat, DI for Strep Throat, Penicillin V Potassium Discharge ED Provider: Chantel Almaraz [facility] General Stated complaint: sore throat Mode of Arrival: Ambulatory Source of Information: Patient Limitations: No Limitations Time Seen by Provider: 10/02/22 20:30 Description of Symptoms (Recalled from Triage Doc. by RN): PATIENT C/O SORE THROAT SINCE YESTERDAY HEENT Symptoms (Recalled from RN notes): Yes Resp Symptoms (Recalled from RN notes): No Skin Symptoms (Recalled from RN notes): No MS Symptoms (Recalled from RN notes): No Functional Status (Recalled from RN notes): WNL History of Present Illness Provider Complaint: Patient states that he has been having sore throat since yesterday that has continued to get worse States that today his throat was still hurting him when he swallowed so he came in to get it checked feels like he may have strep throat Related Data Previous Rx's Medication Instructions Recorded lisinopril 20 mg tablet See Rx Instructions .Route 07/10/22 .COMPLEX #30 tabs metoprolol succinate 50 mg 50 mg PO DAILY cardiac #30 tabs 08/11/22 tablet,extended release 24 hr amlodipine 10 mg tablet See Rx Instructions .Route 09/16/22 .COMPLEX #30 tabs ondansetron HCl 8 mg tablet 8 mg PO Q12H #30 tabs 09/28/22 penicillin V potassium 500 mg 500 mg PO BID 10 days #20 tabs 10/02/22 tablet Allergies Allergy/AdvReac Type Severity Reaction Status Date / Time No Known Allergies Allergy Verified 09/28/22 14:28 Worker's Comp Is this a Worker's Comp case?: No [facility] Disclaimer: The information contained i
[2022-10-02 20:42] VITALS: BP 166/99; PULSE 76; RESP 18; TEMP 36.8; O2SAT 98
== END 2022-10-02 20:49 | disposition home or self-care (01) ==
PROVIDERS: Emergency Provider Nurse Practitioner; PCP Nurse Practitioner Family
DX: J02.0 Streptococcal pharyngitis (principal)
CPT/HCPCS: 87880; 99212; G0463

== ENCOUNTER 2023-01-18 11:55 | Emergency (ER) | payer OTHER, SELFPAY ==
--- NOTE | 2023-01-18 11:57 | XR_ITS ---
FINAL REPORT CLINICAL HISTORY: PAIN RT KNEE FINDINGS: Three views of the right knee reveal no evidence of fracture or dislocation. The bony alignment is normal. There are mild degenerative changes. There is no evidence of joint effusion. No localized soft tissue abnormality is identified. IMPRESSION: No acute abnormality identified. Reviewed, Interpreted and Dictated by Tyler Godinez III, MD Transcribed by Ruby Singh Authenticated and [facility]
[2023-01-18 12:05] VITALS: BP 154/98; PULSE 89; RESP 18; TEMP 37; O2SAT 98; BMI 33.8
--- NOTE | 2023-01-18 12:32 | EXP.UTC ---
Discharge Plan Disposition Patient Disposition: Home, Self-Care Condition: Good Prescriptions Prescriptions: New prednisone 20 mg tablet 20 mg PO BID Qty: 10 0RF No Action metoprolol succinate 50 mg tablet extended release 24 hr 50 mg PO DAILY Qty: 30 6RF Rx Instructions: TAKE 1 TABLET BY MOUTH ONCE DAILY lisinopril 20 mg tablet See Rx Instructions .ROUTE .COMPLEX Rx Instructions: TAKE 1 TABLET BY MOUTH DAILY FOR HYPERTENSION amlodipine 10 mg tablet See Rx Instructions .ROUTE .COMPLEX Rx Instructions: TAKE 1 TABLET BY MOUTH ONCE DAILY Referrals Follow up/Referrals: Valerio Coles APRN [Primary Care Provider] - See instructions Activity Restrictions/Add. Instructions Additional Instructions/Restrictions: Take medication as prescribed Follow up with your Family Doctor if no improvement or any worsening of symptoms Return if needed Straight to ER if any life threatening symptoms Clinical Impressions Clinical Impression: Gout attack Instructions Patient Instructions: DI for Gout, Gout, Prednisone Discharge ED Provider: Chantel Almaraz [facility] [place] HPI General Stated complaint: Rt knee pain, no accident Mode of Arrival: Ambulatory Source of Information: Patient Limitations: No Limitations Time Seen by Provider: 01/18/23 12:32 Description of Symptoms (Recalled from Triage Doc. by RN): right knee pain HEENT Symptoms (Recalled from RN notes): No Resp Symptoms (Recalled from RN notes): No Skin Symptoms (Recalled from RN notes): No MS Symptoms (Recalled from RN notes): Yes Functional Status (Recalled from RN notes): n/a History of Present Illness Provider Complaint: Patient states that he has been having pain in his right knee since Wednesday States that he doesnt recall hurting it but did twist it while packing his son up the steps while he was sleeping States that he does have history of gout not sure if it may be that too because the pain is similar to that Related Data Home Medications Medication Instructions Recorded Confirmed amlodipine 10 mg tablet See Rx Instructions .Route 01/18/23 01/18/23 .COMPLEX . lisinopril 20 mg tablet See Rx Instructions .Route 01/18/23 01/18/23 .COMPLEX Hypertension Previous Rx's Medication Instructions Recorded metoprolol succinate 50 mg 50 mg PO DAILY cardiac #30 tabs 08/11/22 tablet,extended release 24 hr prednisone 20 mg tablet 20 mg PO BID #10 tabs 01/18/23 Allergies Allergy/AdvReac Type Severity Reaction Status Date / Time No Known Allergies Allergy Verified 01/18/23 12:28 Worker's Comp Is this a Worker's Comp case?: No [facility] Disclaimer: The information contained in this section may have been updated after the patient was seen, as this information can be updated by other users. Medical History (Updated 01/18/23 @ 13:23 by Chantel Almaraz APRN) Abnormal EKG Aortic root enlargement Diastolic dysfunction, left ventricle HTN (hypertension) Malignant hypertension Thoracic aortic aneurysm Social History Smoking Status: Never smoker alcohol intake: never substance use type: denies use current occupational status: employed Travel in the last 8 weeks: None household members: significant other housing: house caffeine: Yes ROS Obtained: Yes All systems reviewed & no additional complaints except as documented and Yes Systems reviewed as appropriate & no additional complaints except as documented Constitutional Constitutional: Reports system reviewed and no additional complaints, except as documented, Reports as per HPI and Denies fever(s) ENT Ears, Nose, Mouth, and Throat: Reports system reviewed and no additional complaints, except as documented and Reports as per HPI Cardiovascular Cardiovascular: Reports system reviewed and no additional complaints, except as documented and Reports as per HPI Respiratory Respiratory: Reports system re
[2023-01-18 12:57] LABS: Uric Acid 8.4 mg/dl (3.5-8.5)
[2023-01-18 13:40] VITALS: BP 154/98; PULSE 89; RESP 18; TEMP 37; O2SAT 98
== END 2023-01-18 13:39 | disposition home or self-care (01) ==
PROVIDERS: Emergency Provider Nurse Practitioner; PCP Nurse Practitioner Family
DX: M10.9 Gout, unspecified (principal); M25.561 Pain in right knee
CPT/HCPCS: 73562; 84550; 99212; 99214; G0463

== ENCOUNTER → 2023-04-12 12:00 | Outpatient (CLI) | payer OTHER, SELFPAY ==
[2023-04-12 12:15] LABS: Basophils # 0.1 K/mm3 (0-0.2); Basophils % 0.7 % (0.1-2.0); Eosinophils # 0.3 K/mm3 (0.0-0.4); Eosinophils % 4.2 % (0.1-12.0); Hematocrit 47.5 % (42.0-52.0); Hemoglobin 15.4 g/dL (14.1-18.0); Lymphocytes # 1.5 K/mm3 (0.7-4.5); Lymphocytes % 22.5 % (10-50); Mean Corpuscular HGB Conc 32.4 g/dL (31.8-35.4); Mean Corpuscular Hemoglobin 27.7 pg (27.0-31.2); Mean Corpuscular Volume 85.7 fl (80-94); Mean Platelet Volume 8.4 fl (7.4-10.4); Monocytes # 0.4 K/mm3 (0.1-1.0); Monocytes % 6.6 % (1.7-9.3); Neutrophils # 4.4 K/mm3 (1.8-7.8); Neutrophils % 66.1 % (37.0-80.0); Platelet Count 191 K/mm3 (142-424); Red Blood Count 5.54 M/mm3 (4.60-6.20); Red Cell Distribution Width 14.5 % (11.5-17.5); White Blood Count 6.7 K/mm3 (4.8-10.8)
[2023-04-12 12:54] LABS: Alanine Aminotransferase 99 U/L (12-78); Albumin Level 4.2 g/dl (3.5-5.0); Alkaline Phosphatase 155 U/L (38-126); Anion Gap 11.7 mEq/L (5-15); Aspartate Amino Transferase 73 U/L (17-59); Bilirubin,Indirect 0.5 mg/dL (0.0-0.9); Bilirubin,Total 0.5 mg/dl (0.2-1.3); Bilirubin,Unconjugated 0.5 mg/dL (0.0-1.1); Blood Urea Nitrogen 18 mg/dl (9-20); Calcium 9.5 mg/dl (8.4-10.2); Carbon Dioxide 25 mmol/L (22.0-30.0); Chloride 109 mmol/L (98-107); Chol/HDL Ratio 8.9 (1-3.5); Cholesterol 248 mg/dl (140-200); Estimated Glomerular Filt Rate 50 ml/min (>60); GFR (African American) 60 ML/MIN (>60); Glucose 110 mg/dl (74-100); HDL Cholesterol 28 mg/dl (40-60); Potassium 4.7 mmoL/L (3.5-5.1); Sodium 141 mmol/L (136-145); Total Protein,Serum 7.6 g/dl (6.3-8.2)
[2023-04-12 13:05] LABS: Direct LDL Cholesterol 79.39 mg/dL (100-129); Triglycerides 755 mg/dl (30-150)
[2023-04-12 13:09] LABS: Free T4 (Free Thyroxine) 1.06 ng/dl (0.78-2.19)
[2023-04-12 13:24] LABS: Thyroid Stimulating Hormone 0.97 uIU/mL (0.465-4.68)
== END ==
PROVIDERS: PCP Emergency Medicine; Visit Provider Nurse Practitioner
DX: R06.00 Dyspnea, unspecified (principal); I11.9 Hypertensive heart disease without heart failure; E66.9 Obesity, unspecified; E11.9 Type 2 diabetes mellitus without complications; I71.20 Thoracic aortic aneurysm, without rupture, unspecified; R94.31 Abnormal electrocardiogram [ECG] [EKG]; I63.9 Cerebral infarction, unspecified; Z68.37 Body mass index [BMI] 37.0-37.9, adult
CPT/HCPCS: 36415; 80048; 80061; 80076; 84439; 84443; 85025

== ENCOUNTER → 2023-05-20 08:09 | Outpatient (CLI) | payer OTHER, SELFPAY ==
--- NOTE | 2023-05-20 08:22 | CT_ITS ---
FINAL REPORT TECHNIQUE: The patient was injected with IV contrast. Axial images were obtained through the chest in a PE protocol. 3-D reconstruction images were also performed. Individualized dose reduction techniques using automated exposure control or adjustment of the MA and/or KV according to patient's size were employed. CLINICAL HISTORY: thoracic aortic aneurysm COMPARISON: 06/10/2022 FINDINGS: Mediastinal vasculature is adequately opacified. No pulmonary artery filling defects are identified to suggest PE. There is stable aneurysmal dilatation of the ascending aorta measuring 4.7 cm. There is a calcified subcarinal lymph node. The heart size is normal. There is no pericardial or pleural effusion. Limited images of the upper abdomen reveals fatty infiltration of the liver. The gallbladder is absent. No suspicious infiltrate or nodule is identified. IMPRESSION: No evidence of pulmonary embolism. Stable aneurysmal dilatation of the ascending aorta. Reviewed, Interpreted and Dictated by Raul Jeffers MD Transcribed by Wendy Ronquillo Authenticated and [facility]
[2023-05-20 08:49] LABS: Blood Urea Nitrogen 19 mg/dl (9-20); Estimated Glomerular Filt Rate 46 ml/min (>60); GFR (African American) 56 ML/MIN (>60)
== END ==
PROVIDERS: PCP Emergency Medicine; Visit Provider Nurse Practitioner
DX: I71.20 Thoracic aortic aneurysm, without rupture, unspecified (principal)
CPT/HCPCS: 36415; 71275; 82565; 84520; Q9967

== ENCOUNTER 2023-05-30 21:26 | Emergency (ER) | payer OTHER, SELFPAY ==
[2023-05-30 21:29] VITALS: BP 181/133; PULSE 79; RESP 18; TEMP 36.9; O2SAT 97; BMI 38.7
[2023-05-30 22:01] VITALS: BP 154/113; PULSE 83; RESP 18; O2SAT 96
[2023-05-30 22:25] VITALS: BP 147/82; PULSE 84; RESP 19; TEMP 36.8; O2SAT 98
--- NOTE | 2023-05-30 22:25 | HMH.EDGENADL ---
Discharge Plan Disposition Patient Disposition: Home, Self-Care Prescriptions Prescriptions: New ibuprofen 800 mg tablet 800 mg PO TID PRN (Reason: pain) 7 Days Qty: 20 0RF prednisone 20 mg tablet 60 mg PO DAILY 7 Days Qty: 21 0RF No Action metoprolol succinate 50 mg tablet extended release 24 hr 50 mg PO DAILY Qty: 30 6RF Rx Instructions: TAKE 1 TABLET BY MOUTH ONCE DAILY amlodipine 10 mg tablet See Rx Instructions .ROUTE .COMPLEX Qty: 30 2RF Dose Instruction: TAKE 1 TABLET BY MOUTH ONCE DAILY NEED APPOINTMENT Rx Instructions: TAKE 1 TABLET BY MOUTH ONCE DAILY NEED APPOINTMENT icosapent ethyl [Vascepa] 1 gram capsule 2 g PO BID Qty: 120 2RF lisinopril 20 mg tablet See Rx Instructions .ROUTE .COMPLEX Rx Instructions: TAKE 1 TABLET BY MOUTH DAILY FOR HYPERTENSION prednisone 20 mg tablet 20 mg PO BID Qty: 10 0RF Referrals Follow up/Referrals: Dale Bhat MD [Primary Care Provider] - See instructions Clinical Impressions Clinical Impression: Arthralgia of ankle, left Discharge ED Provider: Sakshi Kim General Adult HPI General Chief complaint: Extremity Problem,Nontraumatic Stated complaint: PainLleft foot Time Seen by Provider: 05/30/23 22:19 Mode of Arrival: Ambulatory Source of Information: Patient Limitations: No Limitations Description of Symptoms (Recalled from ER Triage Doc. by RN): Presents to ED with c/o of left foot pain patient that started today and reports he has hx of gout. Denies taking medication for gout. Patient reports his foot is very tender; denies redness or swelling to the extremity. History of Present Illness HPI narrative: Is a 47-year-old male states that he has been having left foot pain that he thinks is consistent with gout. States he had this many times before which he normally gets better with prednisone and ibuprofen. States specifically that he wants this and does not want any other testing done. Specifically states not wanting to put a needle in his ankle. He states he has a history of gout but nobody is ever done an arthrocentesis to confirm the diagnosis in the past. He was moving a refrigerator earlier in the refrigerator went up on his ankle and since that time he has been having some pain in the left ankle. No redness no swelling no fevers no chills. Patient is minimal to walk on it with a cane. Related Data Home Medications Medication Instructions Recorded Confirmed lisinopril 20 mg tablet See Rx Instructions .Route 01/18/23 04/12/23 .COMPLEX Hypertension Previous Rx's Medication Instructions Recorded metoprolol succinate 50 mg 50 mg PO DAILY cardiac #30 tabs 08/11/22 tablet,extended release 24 hr prednisone 20 mg tablet 20 mg PO BID #10 tabs 01/18/23 amlodipine 10 mg tablet See Rx Instructions .Route 03/22/23 .COMPLEX #30 tabs icosapent ethyl 1 gram capsule 2 g PO BID #120 caps 04/12/23 (Vascepa) ibuprofen 800 mg tablet 800 mg PO TID PRN pain 7 days #20 05/30/23 tabs prednisone 20 mg tablet 60 mg PO DAILY 7 days #21 tabs 05/30/23 Allergies Allergy/AdvReac Type Severity Reaction Status Date / Time No Known Allergies Allergy Verified 04/12/23 11:27 [facility] Disclaimer: The information contained in this section may have been updated after the patient was seen, as this information can be updated by other users. Medical History Abnormal EKG Aortic root enlargement Diastolic dysfunction, left ventricle HTN (hypertension) Malignant hypertension Thoracic aortic aneurysm Social History Smoking Status: Never smoker alcohol intake: never substance use type: denies use current occupational status: employed Travel in the last 8 weeks: None household members: significant other housing: house caffeine: Yes ROS Obtained: Yes All
== END 2023-05-30 22:26 | disposition home or self-care (01) ==
PROVIDERS: Emergency Provider Student in an Organized Health Care Education/Training Program; PCP Emergency Medicine
DX: M25.572 Pain in left ankle and joints of left foot (principal); I71.20 Thoracic aortic aneurysm, without rupture, unspecified; I10 Essential (primary) hypertension
CPT/HCPCS: 99283

== ENCOUNTER 2023-07-16 09:51 | Emergency (ER) | payer OTHER, SELFPAY ==
[2023-07-16 09:51] VITALS: BP 184/102; PULSE 87; RESP 18; TEMP 36.8; O2SAT 97; BMI 35.9
--- NOTE | 2023-07-16 10:07 | EXP.UTC ---
Discharge Plan Disposition Patient Disposition: Home, Self-Care Condition: Good Prescriptions Prescriptions: New prednisone [prednisone] 20 mg tablet 20 mg PO BID 5 Days Qty: 10 0RF No Action metoprolol succinate 50 mg tablet extended release 24 hr 50 mg PO DAILY Qty: 30 6RF Rx Instructions: TAKE 1 TABLET BY MOUTH ONCE DAILY amlodipine 10 mg tablet See Rx Instructions .ROUTE .COMPLEX Qty: 30 2RF Dose Instruction: TAKE 1 TABLET BY MOUTH ONCE DAILY NEED APPOINTMENT Rx Instructions: TAKE 1 TABLET BY MOUTH ONCE DAILY NEED APPOINTMENT icosapent ethyl [Vascepa] 1 gram capsule 2 g PO BID Qty: 120 2RF lisinopril 20 mg tablet See Rx Instructions .ROUTE .COMPLEX Qty: 90 1RF Rx Instructions: TAKE 1 TABLET BY MOUTH DAILY FOR HYPERTENSION Referrals Follow up/Referrals: Zhen Valencia DO [Staff Physician] - See instructions Dale Bhat MD [Primary Care Provider] - See instructions Activity Restrictions/Add. Instructions Additional Instructions/Restrictions: Rest the extremity, Wear the shannon wrap for compression, Elevate the extremity as tolerated while you are resting. Take the prednisone as directed. Follow up with Dr. Valencia (orthopedics) if you continue to have symptoms. I put in a referral but you need to call his office and schedule an appointment. Follow up with your regular doctor. GO TO THE ER FOR ANY WORSENING SYMPTOMS Clinical Impressions Clinical Impression: Knee pain, right Instructions Patient Instructions: DI for Knee Pain, Prednisone, How to Apply an Elastic Wrap on Knee Discharge ED Provider: Dilip May [facility] General Stated complaint: right knee pain, unknown origin Time Seen by Provider: 07/16/23 10:07 History of Present Illness Provider Complaint: He states that for the past 4 days he has had right knee pain. He denies any recent injury or trauma. He states that he has had history of right knee pain and he aggravated his knee by picking up a bunch of black walnuts over the past 2 weeks. He denies any other joint pain or complaints. Related Data Previous Rx's Medication Instructions Recorded metoprolol succinate 50 mg 50 mg PO DAILY cardiac #30 tabs 08/11/22 tablet,extended release 24 hr amlodipine 10 mg tablet See Rx Instructions .Route 03/22/23 .COMPLEX #30 tabs icosapent ethyl 1 gram capsule 2 g PO BID #120 caps 04/12/23 (Vascepa) lisinopril 20 mg tablet See Rx Instructions .Route 06/25/23 .COMPLEX Hypertension #90 tabs prednisone 20 mg tablet 20 mg PO BID 5 days #10 tabs 07/16/23 Allergies Allergy/AdvReac Type Severity Reaction Status Date / Time No Known Allergies Allergy Verified 07/16/23 10:20 [facility] Disclaimer: The information contained in this section may have been updated after the patient was seen, as this information can be updated by other users. Medical History Abnormal EKG Aortic root enlargement Diastolic dysfunction, left ventricle HTN (hypertension) Malignant hypertension Thoracic aortic aneurysm Social History Smoking Status: Never smoker alcohol intake: never substance use type: denies use current occupational status: employed Travel in the last 8 weeks: None household members: significant other housing: house caffeine: Yes ROS Obtained: Yes All systems reviewed & no additional complaints except as documented Constitutional Constitutional: Denies chills and Denies fever(s) Eyes Eyes: Denies eye discharge ENT Ears, Nose, Mouth, and Throat: Denies dizziness, Denies otalgia and Denies sore throat Cardiovascular Cardiovascular: Denies chest pain Respiratory Respiratory: Denies shortness of breath, Denies chest congestion, Denies cough, Denies stridor and Denies wheezing Gastrointestinal Gastrointestingal: Denies nausea or vomiting Muscu
[2023-07-16 10:33] VITALS: BP 184/102; PULSE 87; RESP 18; TEMP 36.8; O2SAT 97
== END 2023-07-16 10:33 | disposition home or self-care (01) ==
PROVIDERS: Emergency Provider Nurse Practitioner Family; PCP Emergency Medicine
DX: M25.561 Pain in right knee (principal); I77.89 Other specified disorders of arteries and arterioles; I11.9 Hypertensive heart disease without heart failure
CPT/HCPCS: 99212; 99214; G0463

== ENCOUNTER 2023-11-08 12:34 | Emergency (ER) | payer OTHER, SELFPAY ==
[2023-11-08 13:46] VITALS: BP 159/99; PULSE 83; RESP 18; TEMP 36.8; O2SAT 98; BMI 33.2
--- NOTE | 2023-11-08 13:51 | EXP.UTC ---
Discharge Plan Disposition Patient Disposition: Home, Self-Care Condition: Good Prescriptions Prescriptions: New prednisone 20 mg tablet 20 mg PO BID Qty: 10 0RF ibuprofen [IBU] 800 mg tablet 800 mg PO TIDP PRN (Reason: Moderate Pain) Qty: 20 0RF No Action metoprolol succinate 50 mg tablet extended release 24 hr 50 mg PO DAILY lisinopril 20 mg tablet 20 mg PO DAILY amlodipine 10 mg tablet 10 mg PO DAILY Referrals Follow up/Referrals: Valerio Coles APRN [Primary Care Provider] - See instructions Activity Restrictions/Add. Instructions Additional Instructions/Restrictions: Take medication as prescribed Yong strauss with your Family Doctor if no improvement or any worsening of symptoms Straight to ER if any life threatening symptoms Clinical Impressions Clinical Impression: Gout attack Qualifiers: Gout site: ankle Gout etiology: unspecified cause Laterality: left Qualified Code(s): M10.9 - Gout, unspecified Instructions Patient Instructions: DI for Gout, Gout Discharge ED Provider: Chantel Almaraz [facility] General Stated complaint: left ankle pain possible gout Mode of Arrival: Ambulatory Source of Information: Patient Limitations: No Limitations Time Seen by Provider: 11/08/23 13:51 Description of Symptoms (Recalled from Triage Doc. by RN): PATIENT C/O PAIN IN LEFT ANKLE X 2 DAYS, NO KNOWN INJURY HEENT Symptoms (Recalled from RN notes): No Resp Symptoms (Recalled from RN notes): No Skin Symptoms (Recalled from RN notes): No MS Symptoms (Recalled from RN notes): Yes Functional Status (Recalled from RN notes): WNL History of Present Illness Provider Complaint: Patient states that he has a hx of Gout States that he has been having pain in his left ankle for the last couple of days that feels like it does when he has gout so he came in to get treated States that when it does this he comes in gets steriods and ibuprofen and it goes away Related Data Home Medications Medication Instructions Recorded Confirmed amlodipine 10 mg tablet 10 mg PO DAILY 11/08/23 11/08/23 lisinopril 20 mg tablet 20 mg PO DAILY 11/08/23 11/08/23 metoprolol succinate 50 mg 50 mg PO DAILY 11/08/23 11/08/23 tablet,extended release 24 hr Previous Rx's Medication Instructions Recorded ibuprofen 800 mg tablet (IBU) 800 mg PO TIDP PRN Moderate Pain 11/08/23 #20 tabs prednisone 20 mg tablet 20 mg PO BID #10 tabs 11/08/23 Allergies Allergy/AdvReac Type Severity Reaction Status Date / Time No Known Allergies Allergy Verified 11/02/23 09:38 Worker's Comp Is this a Worker's Comp case?: No [facility] Disclaimer: The information contained in this section may have been updated after the patient was seen, as this information can be updated by other users. Medical History Abnormal EKG Aortic root enlargement Diastolic dysfunction, left ventricle HTN (hypertension) Malignant hypertension Thoracic aortic aneurysm Social History Smoking Status: Never smoker alcohol intake: never substance use type: denies use current occupational status: employed Travel in the last 8 weeks: None household members: significant other housing: house caffeine: Yes ROS Obtained: Yes All systems reviewed & no additional complaints except as documented and Yes Systems reviewed as appropriate & no additional complaints except as documented Constitutional Constitutional: Reports system reviewed and no additional complaints, except as documented and Reports as per HPI ENT Ears, Nose, Mouth, and Throat: Reports system reviewed and no additional complaints, except as documented and Reports as per HPI Cardiovascular Cardiovascular: Reports system reviewed and no additional complaints, except as documented and Reports as per HPI Respiratory Respiratory: Reports system reviewed and no additional complaints, except as documented and Reports as per HPI Gastrointestinal Gastrointestingal: Reports system reviewed and no additional complaints, except as documented and as per HPI Musculoskeletal Musculoskeletal: Reports system reviewed and no additional complaints, except as documented, Reports as per HPI and Reports other (pain and swelling left ankle has hx of gout feels like it doesn with flare ) Physical Exam General General appearance: alert and in no apparent distress ENT ENT exam: Present mucous membranes moist Respiratory Respiratory exam: Present normal lung sounds bilaterally; Absent respiratory distress or wheezes Cardiovascular Cardiovascular exam: Present regular rate, normal rhythm and normal heart sounds Expanded Lower Extremity Exam Left: Ankle exam: Present tenderness, swelling (mild) and other (mild swelling no redness no warmth); Absent ecchymosis or erythema Neurovascular/Tendon exam: Present normal capillary refill Neurological Exam Neurological exam: Present alert, oriented X3 and normal gait Medical Decision Making Maximo Inquiry Pt receiving controlled substance: No Maximo was queried for this patient: No Vital Signs: 11/08/23 13:46 Temperature 98.3 F Temperature Source Oral Pulse Rate [Left Brachial] 83 Respiratory Rate 18 Blood Pressure [Left Arm] 159/99 H Blood Pressure Mean [Left Arm] 119 Blood Pressure Source [Left Arm] Automatic Cuff Blood Pressure Position [Left Arm] Sitting 02 Sat by Pulse Oximetry 98 Oxygen Delivery Method Room Air
[2023-11-08 14:03] VITALS: BP 159/99; PULSE 83; RESP 18; TEMP 36.8; O2SAT 98
== END 2023-11-08 14:06 | disposition home or self-care (01) ==
PROVIDERS: Emergency Provider Nurse Practitioner; PCP Nurse Practitioner Family
DX: M10.072 Idiopathic gout, left ankle and foot (principal); I10 Essential (primary) hypertension
CPT/HCPCS: 99212; 99214; G0463

== ENCOUNTER 2023-11-26 12:25 | Outpatient (CLI) | payer OTHER, SELFPAY ==
--- NOTE | 2023-11-26 12:30 | CT_ITS ---
FINAL REPORT TECHNIQUE: Axial imaging of the chest is obtained after the administration of contrast. 3-D MIP reformatted images were also obtained and reviewed per PE protocol. CLINICAL HISTORY: thoracic aortic aneurysm COMPARISON: 05/20/2023 FINDINGS: The pulmonary arteries are well filled. There is no evidence of pulmonary embolus. There is no aortic dissection or intimal flap. There is an ascending aortic aneurysm, noted on the prior CTA of April 2023. On today's exam this measures 4.8 cm in diameter, only minimally larger when compared to the prior exam. There is no mediastinal, hilar, or axillary lymphadenopathy. There is evidence of prior granulomatous disease.. There is no pleural or pericardial effusion. There is diffuse fatty infiltration of the liver.. No acute osseous abnormality. IMPRESSION: No evidence of pulmonary embolism or aortic dissection. Ascending thoracic aortic aneurysm, 4.8 cm in diameter, was 4.7 cm on the prior exam. Diffuse fatty infiltration of the liver. Reviewed, Interpreted and Dictated by Jackie Ibarra MD Transcribed by Danielle Daley Authenticated and [facility]
[2023-11-26 13:01] LABS: Blood Urea Nitrogen 20 mg/dl (9-20); Estimated Glomerular Filt Rate 43 ml/min (>60); GFR (African American) 52 ML/MIN (>60)
[2023-11-26] MEDS: SODIUM CHLORIDE 0.9% 10ML SYR (RAD ONLY) 10 ML IV (13:20)
[2023-11-26] MEDS: 0.9 % SODIUM CHLORIDE 50 ML VIAL IV (13:20)
[2023-11-26] MEDS: IOPAMIDOL-370 (76%);100ML BOTTLE 100 ML IV (13:20)
== END 2023-11-26 23:59 ==
LOC: RAD 12:27
PROVIDERS: PCP Nurse Practitioner Family; Visit Provider Physician Assistant
DX: I71.20 Thoracic aortic aneurysm, without rupture, unspecified (principal)
CPT/HCPCS: 36415; 71275; 82565; 84520; Q9967

== ENCOUNTER 2024-01-30 11:34 | Emergency (ER) | payer OTHER, SELFPAY ==
[2024-01-30 12:30] VITALS: BP 184/95; PULSE 99; RESP 18; TEMP 36.8; O2SAT 97; BMI 38.5
--- NOTE | 2024-01-30 12:51 | EXP.UTC ---
Discharge Plan Disposition Patient Disposition: Home, Self-Care Condition: Good Prescriptions Prescriptions: New prednisone 20 mg tablet 20 mg PO BID Qty: 10 0RF ibuprofen 600 mg tablet 600 mg PO Q8H PRN (Reason: pain) 3 Days Qty: 20 0RF No Action metoprolol succinate 50 mg tablet extended release 24 hr 50 mg PO DAILY lisinopril 20 mg tablet 20 mg PO DAILY amlodipine 10 mg tablet 10 mg PO DAILY prednisone 20 mg tablet 20 mg PO BID Qty: 10 0RF ibuprofen [IBU] 800 mg tablet 800 mg PO TIDP PRN (Reason: Moderate Pain) Qty: 20 0RF Referrals Follow up/Referrals: Valerio Coles APRN [Primary Care Provider] - See instructions Activity Restrictions/Add. Instructions Additional Instructions/Restrictions: take bp med when you get home Clinical Impressions Clinical Impression: Gout attack Instructions Patient Instructions: DI for Gout Discharge ED Provider: Tarah ([facility])Edita [facility] HPI General Stated complaint: left foot pain, right knee swelling Mode of Arrival: Wheelchair Source of Information: Patient Limitations: No Limitations Time Seen by Provider: 01/30/24 12:51 MS Symptoms (Recalled from RN notes): Yes History of Present Illness Provider Complaint: 48 yr old male presents for left ankle pain, pt states feels like his normal gout flare Related Data Home Medications Medication Instructions Recorded Confirmed amlodipine 10 mg tablet 10 mg PO DAILY 11/08/23 11/08/23 lisinopril 20 mg tablet 20 mg PO DAILY 11/08/23 11/08/23 metoprolol succinate 50 mg 50 mg PO DAILY 11/08/23 11/08/23 tablet,extended release 24 hr Previous Rx's Medication Instructions Recorded ibuprofen 800 mg tablet (IBU) 800 mg PO TIDP PRN Moderate Pain 11/08/23 #20 tabs prednisone 20 mg tablet 20 mg PO BID #10 tabs 11/08/23 ibuprofen 600 mg tablet 600 mg PO Q8H PRN pain 3 days #20 01/30/24 tabs prednisone 20 mg tablet 20 mg PO BID #10 tabs 01/30/24 Allergies Allergy/AdvReac Type Severity Reaction Status Date / Time No Known Allergies Allergy Verified 11/02/23 09:38 [facility] Disclaimer: The information contained in this section may have been updated after the patient was seen, as this information can be updated by other users. Medical History , [employer]IVER) Thoracic aortic aneurysm Aortic root enlargement Malignant hypertension Abnormal EKG HTN (hypertension) Diastolic dysfunction, left ventricle Social History , [employer]) Smoking Status: Never smoker alcohol intake: never substance use type: denies use current occupational status: employed Travel in the last 8 weeks: None household members: significant other housing: house caffeine: Yes ROS Obtained: Yes All systems reviewed & no additional complaints except as documented Constitutional Constitutional: Reports system reviewed and no additional complaints, except as documented Eyes Eyes: Reports system reviewed and no additional complaints, except as documented ENT Ears, Nose, Mouth, and Throat: Reports system reviewed and no additional complaints, except as documented Cardiovascular Cardiovascular: Reports system reviewed and no additional complaints, except as documented Respiratory Respiratory: Reports system reviewed and no additional complaints, except as documented Gastrointestinal Gastrointestingal: Reports system reviewed and no additional complaints, except as documented Musculoskeletal Musculoskeletal: Reports system reviewed and no additional complaints, except as documented, Reports as per HPI, Reports arthralgias and Reports joint swelling Integumentary/Breasts Skin/Breast: Reports system reviewed and no additional complaints, except as documented Neurologic Neurologic: Reports system reviewed and no additional complaints, except as documented Endocrine Endocrine: Reports system reviewed and no additional complaints, except as documented Hematologic/Lymphatic Henatologic/Lymphatic: Reports system reviewed and no additional complaints, except as documented Allergic/Immunologic Allergic/Immunologic: Reports system reviewed and no additional complaints, except as documented Physical Exam General General appearance: alert and in no apparent distress Head Head exam: atraumatic Eye Eye exam: Present normal appearance and PERRL ENT ENT exam: Present normal exam Respiratory Respiratory exam: Present normal lung sounds bilaterally Cardiovascular Cardiovascular exam: Present regular rate and normal rhythm Expanded Lower Extremity Exam Left: Ankle image: 1. swelling and tender Neurological Exam Neurological exam: Present alert and oriented X3 Skin Skin exam: Present warm Medical Decision Making Medical Records Medical records reviewed: Yes I reviewed the patient's medical records. Maximo Inquiry Pt receiving controlled substance: No Maximo was queried for this patient: No
[2024-01-30 12:59] VITALS: BP 184/95; PULSE 99; RESP 18; TEMP 36.8; O2SAT 97
--- NOTE | 2024-01-30 13:00 | PC.NURSE ---
Pt stated that he hasn't taken his blood pressure medication today.
== END 2024-01-30 12:59 | disposition home or self-care (01) ==
PROVIDERS: Emergency Provider Nurse Practitioner Family; PCP Nurse Practitioner Family
DX: M25.572 Pain in left ankle and joints of left foot; M10.072 Idiopathic gout, left ankle and foot
CPT/HCPCS: 99212; 99214; G0463

== ENCOUNTER 2024-03-07 21:34 | Emergency (ER) | payer OTHER, SELFPAY ==
[2024-03-07 21:36] VITALS: BP 175/115; PULSE 88; RESP 18; TEMP 36.9; O2SAT 97; BMI 40.7
[2024-03-07] MEDS: IBUPROFEN 400 MG TABLET 800 MG PO (22:26)
[2024-03-07] MEDS: predniSONE 20MG TAB 50 MG PO (22:27)
--- NOTE | 2024-03-07 22:29 | HMH.EDGENADL ---
Discharge Plan Disposition Patient Disposition: Home, Self-Care Prescriptions Prescriptions: New ibuprofen 800 mg tablet 800 mg PO Q8H PRN (Reason: pain) Qty: 15 0RF prednisone 50 mg tablet 50 mg PO DAILY 5 Days Qty: 5 0RF No Action prednisone 20 mg tablet 20 mg PO BID Qty: 10 0RF ibuprofen 600 mg tablet 600 mg PO Q8H PRN (Reason: pain) 3 Days Qty: 20 0RF metoprolol succinate 50 mg tablet extended release 24 hr 50 mg PO DAILY lisinopril 20 mg tablet 20 mg PO DAILY amlodipine 10 mg tablet 10 mg PO DAILY ibuprofen [IBU] 800 mg tablet 800 mg PO TIDP PRN (Reason: Moderate Pain) Qty: 20 0RF Referrals Follow up/Referrals: Kennedy Bermudez MD [Primary Care Provider] - See instructions Activity Restrictions/Add. Instructions Additional Instructions/Restrictions: At this time it was felt you are safe to be discharged home. If new or worsening symptoms please do not hesitate to return the emergency department. Please take your medications as prescribed and follow-up with your family doctor after your flare is over to discuss gout control medicines. Clinical Impressions Clinical Impression: Gout flare Discharge ED Provider: Cale Seaman General Adult HPI General Chief complaint: PAIN Stated complaint: sore and tender in left foot Time Seen by Provider: 03/07/24 21:40 Mode of Arrival: Ambulatory Source of Information: Patient Limitations: Physical Limitations Description of Symptoms (Recalled from ER Triage Doc. by RN): Pt presented to ED for pain to left ankle and foot; no injury or known cause. Pt stated he was seen in [facility] a couple months ago for the same symptoms and was treated for gout and received steroids and ibuprofen. It had improved but now the pain started again about 1300 today. Pt stated he has noticed the area was swollen; has not been running fever. Rates pain 9/10 with ambulation but little to no pain at rest. On side note, pt's BP is 175/115 and he stated he takes 3 BP pills daily and ran out of one yesterday but his just picked up the Rx today and he has not taken it yet. History of Present Illness HPI narrative: Patient is a 48-year-old male with past medical history of gout not on controlled medicines who presents emergency department for evaluation of left ankle pain. Onset was acute over the last 24 hours. Patient has had multiple gout attacks in the previous site and states that symptoms are consistent with previous and they usually respond to prednisone and ibuprofen. He does not take out controlled medicines. No other acute complaints at this time. Related Data Home Medications Medication Instructions Recorded Confirmed amlodipine 10 mg tablet 10 mg PO DAILY 11/08/23 11/08/23 lisinopril 20 mg tablet 20 mg PO DAILY 11/08/23 01/30/24 metoprolol succinate 50 mg 50 mg PO DAILY 11/08/23 01/30/24 tablet,extended release 24 hr Previous Rx's Medication Instructions Recorded ibuprofen 800 mg tablet (IBU) 800 mg PO TIDP PRN Moderate Pain 11/08/23 #20 tabs ibuprofen 600 mg tablet 600 mg PO Q8H PRN pain 3 days #20 01/30/24 tabs prednisone 20 mg tablet 20 mg PO BID #10 tabs 01/30/24 ibuprofen 800 mg tablet 800 mg PO Q8H PRN pain #15 tabs 03/07/24 prednisone 50 mg tablet 50 mg PO DAILY Gout 5 days #5 tabs 03/07/24 Allergies Allergy/AdvReac Type Severity Reaction Status Date / Time No Known Allergies Allergy Verified 01/30/24 12:58 [facility] Disclaimer: The information contained in this section may have been updated after the patient was seen, as this information can be updated by other users. Medical History , [employer] OPERATOR) Thoracic aortic aneurysm Aortic root enlargement Malignant hypertension Abnormal EKG HTN (hypertension) Diastolic dysfunction, left ventricle Social History Smoking Status: Never smoker alcohol intake: never substance use type: denies use current occupational status: employed Travel in the last 8 weeks: None household members: significant other housing: house caffeine: Yes ROS Obtained: Yes Systems reviewed as appropriate & no additional complaints except as documented Physical Exam General General appearance: alert and in no apparent distress Head Head exam: atraumatic and normocephalic Eye Eye exam: Present PERRL and EOMI ENT ENT exam: Present mucous membranes moist Neck Neck exam: Present normal inspection Chest Chest inspection: Present normal inspection and symmetric chest wall rise Respiratory Respiratory exam: Absent respiratory distress Cardiovascular Cardiovascular exam: Present regular rate and normal rhythm Abdominal Exam Abdominal exam: Present soft Extremities Exam Extremities exam: Present other (Evidence of venous stasis over the bilateral lower extremities that is symmetric, tender left ankle joint, no significant warmth or erythema overlying. Palpable dorsal pedal pulse on the left.) Neurological Exam Neurological exam: Present alert Psychiatric Psychiatric exam: Present normal affect Skin Skin exam: Present warm and dry Medical Decision Making Maximo Inquiry Pt receiving controlled substance: No Vital Signs: 03/07/24 21:36 Temperature 98.4 F Temperature Source Oral Pulse Rate [Right Brachial] 88 Respiratory Rate 18 Blood Pressure [Right Arm] 175/115 H Blood Pressure Mean [Right Arm] 135 02 Sat by Pulse Oximetry 97 Oxygen Delivery Method Room Air Orders (Tests/Meds): ED MEDICATIONS Generic Name Dose Route Start Last Admin Trade Name Freq PRN Reason Stop Dose Admin Ibuprofen 800 mg 03/07/24 22:24 03/07/24 22:26 Ibuprofen 400 Mg Tablet PO 03/07/24 22:25 800 mg ONCE ONE Administration Prednisone 50 mg 03/07/24 22:24 03/07/24 22:27 Prednisone 20mg Tab PO 03/07/24 22:25 50 mg ONCE ONE Administration Medical Decision Narrative: In summary patient is a 48-year-old male with past medical history described above presents emergency department for evaluation of ankle pain in the setting of known gout not on control therapy. Patient is hemodynamically stable nontoxic-appearing upon arrival, afebrile. Shared decision-making discussion was had at bedside given the patient has had multiple gout attacks before in his left ankle. He does not wish to proceed with septic arthritis workup. He wishes to be treated empirically and will be discharged with a course of ibuprofen and prednisone first doses of which were administered in the emergency department. Patient was given multiple strict return precautions and verbalized understanding. He will follow-up with his PCP after this acute flare is over for discussion of controlled medication. Critical Care Critical Care Time Critical Care Time: No
[2024-03-07 22:32] VITALS: BP 167/91; PULSE 87; RESP 16; TEMP 36.9; O2SAT 97
== END 2024-03-07 22:33 | disposition home or self-care (01) ==
PROVIDERS: Emergency Provider Emergency Medicine; PCP Internal Medicine
DX: M10.072 Idiopathic gout, left ankle and foot (principal); M79.672 Pain in left foot
CPT/HCPCS: 99283

== ENCOUNTER 2024-05-23 15:30 | Outpatient (CLI) | payer OTHER, SELFPAY ==
[2024-05-23 15:58] LABS: Basophils # 0.1 K/mm3 (0-0.2); Eosinophils # 0.2 K/mm3 (0.0-0.4); Eosinophils % 2.9 % (0.1-12.0); Hematocrit 46.9 % (42.0-52.0); Hemoglobin 15.2 g/dL (14.1-18.0); Lymphocytes % 27.7 % (10-50); Mean Corpuscular HGB Conc 32.4 g/dL (31.8-35.4); Mean Corpuscular Hemoglobin 29.9 pg (27.0-31.2); Mean Corpuscular Volume 92.3 fl (80-94); Mean Platelet Volume 8.7 fl (7.4-10.4); Monocytes # 0.5 K/mm3 (0.1-1.0); Monocytes % 7.2 % (1.7-9.3); Neutrophils # 4.4 K/mm3 (1.8-7.8); Neutrophils % 61.2 % (37.0-80.0); Platelet Count 187 K/mm3 (142-424); Red Blood Count 5.08 M/mm3 (4.60-6.20); Red Cell Distribution Width 14.5 % (11.5-17.5); White Blood Count 7.3 K/mm3 (4.8-10.8)
[2024-05-23 17:29] LABS: Alanine Aminotransferase 89 U/L (12-78); Albumin Level 4.1 g/dl (3.5-5.0); Alkaline Phosphatase 117 U/L (38-126); Anion Gap 10.6 mEq/L (5-15); Aspartate Amino Transferase 71 U/L (17-59); Bilirubin,Indirect 0.8 mg/dL (0.0-0.9); Bilirubin,Total 0.8 mg/dl (0.2-1.3); Bilirubin,Unconjugated 0.8 mg/dL (0.0-1.1); Blood Urea Nitrogen 20 mg/dl (9-20); Calcium 9.5 mg/dl (8.4-10.2); Carbon Dioxide 26 mmol/L (22.0-30.0); Chloride 107 mmol/L (98-107); Cholesterol 235 mg/dl (140-200); Estimated Glomerular Filt Rate 54 ml/min (>60); GFR (African American) 65 ML/MIN (>60); Glucose 110 mg/dl (74-100); HDL Cholesterol 26 mg/dl (40-60); Potassium 4.6 mmoL/L (3.5-5.1); Sodium 139 mmol/L (136-145); Total Protein,Serum 7.6 g/dl (6.3-8.2)
[2024-05-23 17:40] LABS: Direct LDL Cholesterol 118.51 mg/dL (100-129)
[2024-05-23 17:46] LABS: Free T4 (Free Thyroxine) 0.98 ng/dl (0.78-2.19); Triglycerides 463 mg/dl (30-150)
[2024-05-23 18:00] LABS: Thyroid Stimulating Hormone 1.02 uIU/mL (0.465-4.68)
[2024-05-24 12:33] LABS: Hemoglobin A1C 6.3 % (4.0-6.0)
== END 2024-05-23 23:59 | disposition home or self-care (01) ==
LOC: LAB 15:32
PROVIDERS: PCP Family Medicine; Visit Provider Physician Assistant
DX: E66.9 Obesity, unspecified (principal); I10 Essential (primary) hypertension; E78.5 Hyperlipidemia, unspecified; E78.1 Pure hyperglyceridemia; Z68.37 Body mass index [BMI] 37.0-37.9, adult; I71.20 Thoracic aortic aneurysm, without rupture, unspecified
CPT/HCPCS: 36415; 80048; 80061; 80076; 83036; 83735; 84439; 84443; 85025

== ENCOUNTER 2024-07-06 12:29 | Outpatient (CLI) | payer OTHER, SELFPAY ==
--- NOTE | 2024-07-06 12:30 | CT_ITS ---
FINAL REPORT CLINICAL HISTORY: Thoracic aortic aneurysm, follow-up COMPARISON: 11/26/2023 FINDINGS: Thin section axial CT images of the chest were obtained with contrast. 3D reformatted images were also obtained. This study was performed with techniques to keep radiation doses as low as reasonably achievable (ALARA). Individualized dose reduction techniques using automated exposure control or adjustment of mA and/or kV according to the patient's size were employed. There is no evidence of pulmonary embolism. The ascending aorta measures 4.6 cm and previously measured 4.8 cm. This is visually stable. There is no evidence of dissection. There is no evidence of mediastinal or hilar mass or adenopathy.There are several calcified granulomas in the lungs bilaterally. Mild atelectasis is noted. There is a stable, 2 mm posterior right lower lobe nodule seen on series 3 image 53. No new mass or nodule is identified. Limited images of the upper abdomen demonstrate fatty infiltration of the liver. The patient is status postcholecystectomy. IMPRESSION: Stable ascending aortic aneurysm. Reviewed, Interpreted and Dictated by Tyler Godinez III, MD Transcribed by Miranda Rolle Authenticated and [facility]
[2024-07-06 13:02] LABS: Blood Urea Nitrogen 19 mg/dl (9-20); Estimated Glomerular Filt Rate 46 ml/min (>60); GFR (African American) 56 ML/MIN (>60)
[2024-07-06] MEDS: SODIUM CHLORIDE 0.9% 10ML SYR (RAD ONLY) 10 ML IV (14:01)
[2024-07-06] MEDS: 0.9 % SODIUM CHLORIDE 50 ML VIAL IV (14:01)
[2024-07-06] MEDS: IOPAMIDOL-370 (76%);100ML BOTTLE 80 ML IV (14:01)
== END 2024-07-06 23:59 | disposition home or self-care (01) ==
LOC: RAD 12:30
PROVIDERS: PCP Family Medicine; Visit Provider Physician Assistant
DX: I71.20 Thoracic aortic aneurysm, without rupture, unspecified (principal)
CPT/HCPCS: 36415; 71275; 82565; 84520; Q9967

== ENCOUNTER 2024-08-24 16:48 | Emergency (ER) | payer OTHER, SELFPAY ==
[2024-08-24 16:48] VITALS: BP 144/97; PULSE 89; RESP 20; TEMP 36.6; O2SAT 97; BMI 39.5
[2024-08-24] MEDS: predniSONE 20MG TAB 50 MG PO (17:14)
[2024-08-24] MEDS: IBUPROFEN 800 MG TABLET PO (17:14)
[2024-08-24 17:16] VITALS: BP 124/84; PULSE 84; RESP 18; TEMP 37.1; O2SAT 97
--- NOTE | 2024-08-24 17:16 | ED_ITS ---
Discharge Plan Disposition Patient Disposition: Home, Self-Care Prescriptions Prescriptions: New ibuprofen 800 mg tablet 800 mg PO Q8H PRN (Reason: gout pain) Qty: 15 0RF prednisone 50 mg tablet 50 mg PO DAILY 5 Days Qty: 5 0RF No Action amlodipine 10 mg tablet See Rx Instructions .ROUTE .COMPLEX Qty: 30 4RF Dose Instruction: TAKE 1 TABLET BY MOUTH ONCE DAILY Rx Instructions: TAKE 1 TABLET BY MOUTH ONCE DAILY ibuprofen [IBU] 800 mg tablet 800 mg PO TIDP PRN (Reason: Moderate Pain) Qty: 20 0RF metoprolol succinate 50 mg tablet extended release 24 hr 50 mg PO DAILY lisinopril 20 mg tablet 20 mg PO DAILY Referrals Follow up/Referrals: Hina Chambers APRN [Primary Care Provider] - See instructions Activity Restrictions/Add. Instructions Additional Instructions/Restrictions: At this time it was felt you are safe to be discharged home. If new or worsening symptoms please do not hesitate to return the emergency department. Please take your medicine as prescribed and limit your ibuprofen 800s as your kidney function is not the best. Please drink a lot of water. As discussed please follow-up with your family doctor next week if things are not resolving. Clinical Impressions Clinical Impression: Gout attack Print Language Print Language: Citizen Of The [place] Discharge ED Provider: Cale Seaman General Adult HPI General Chief complaint: PAIN Stated complaint: gout Time Seen by Provider: 08/24/24 16:53 Mode of Arrival: Ambulatory Source of Information: Patient Limitations: No Limitations Description of Symptoms (Recalled from ER Triage Doc. by RN): Patient presents to ED with pain to his left ankle. Patient states he thinks it is gout. Pain started wednesday. History of Present Illness HPI narrative: Patient is a 48-year-old male past medical history of gout not on control therapy who presents emergency department for evaluation of foot pain. He has been dealing with left ankle pain over the last few days and has recurrent gout attacks in this ankle. His pain is moderate to severe in intensity is the same as all his previous gout attacks. He has no other joint involvement at this time. No other acute complaints. No trauma. Related Data Home Medications ?Medication ?Instructions ?Recorded ?Confirmed lisinopril 20 mg tablet 20 mg PO DAILY 11/08/23 05/23/24 metoprolol succinate 50 mg 50 mg PO DAILY 11/08/23 05/23/24 tablet,extended release 24 hr Previous Rx's ?Medication ?Instructions ?Recorded amlodipine 10 mg tablet See Rx Instructions .Route 05/15/24 .COMPLEX #30 tabs ibuprofen 800 mg tablet (IBU) 800 mg PO TIDP PRN Moderate Pain 07/17/24 #20 tabs ibuprofen 800 mg tablet 800 mg PO Q8H PRN gout pain #15 08/24/24 tabs prednisone 50 mg tablet 50 mg PO DAILY gout 5 days #5 tabs 08/24/24 Allergies Allergy/AdvReac Type Severity Reaction Status Date / Time No Known Allergies Allergy Verified 05/23/24 14:55 [facility] Disclaimer: The information contained in this section may have been updated after the patient was seen, as this information can be updated by other users. Medical History Thoracic aortic aneurysm Aortic root enlargement Malignant hypertension Abnormal EKG HTN (hypertension) Diastolic dysfunction, left ventricle Social History Smoking Status: Current every day smoker tobacco type: smokeless tobacco alcohol intake: never substance use type: denies use current occupational status: employed household members: significant other housing: house caffeine: Yes Other Medical History Have you received the Flu Vaccine for this season: No Have you received the Pneumonia Vaccine: No ROS Obtained: Yes Systems reviewed as appropriate & no additional complaints except as documented Physical Exam General General appearance: alert and in no apparent distress Head Head exam: atraumatic and normocephalic Eye Eye exam: Present PERRL ENT ENT exam: Present mucous membranes moist Neck Neck exam: Present normal inspection Chest Chest inspection: Present normal inspection and symmetric chest wall rise Respiratory Respiratory exam: Absent respiratory distress Cardiovascular Cardiovascular exam: Present regular rate and normal rhythm Abdominal Exam Abdominal exam: Present soft Extremities Exam Extremities exam: Present other (Warm mildly swollen left ankle, dorsal pedal pulse palpable, no overlying erythema.) Neurological Exam Neurological exam: Present alert Psychiatric Psychiatric exam: Present normal affect Skin Skin exam: Present warm and dry Medical Decision Making Medical Records Screening: Per USPSTF and CDC recommendations, given the prevalence of disease in our region, it is our hospital?s policy to screen for HIV and viral Hepatitis for all patients aged 18 and over and those with ongoing risk factors. Maximo Inquiry Pt receiving controlled substance: No Vital Signs: 08/24/24 16:48 Temperature 97.8 F Temperature Source Oral Pulse Rate [Right Brachial] 89 Respiratory Rate 20 Blood Pressure [Right Arm] 144/97 H Blood Pressure Mean [Right Arm] 112 Blood Pressure Source [Right Arm] Automatic Cuff Blood Pressure Position [Right Arm] Supine 02 Sat by Pulse Oximetry 97 Oxygen Delivery Method Room Air Orders (Tests/Meds): ED MEDICATIONS Discontinued Medications Generic Name Dose Route Start Last Admin Trade Name Conrad PRN Reason Stop Dose Admin Ibuprofen 800 mg 08/24/24 17:08 08/24/24 17:14 Ibuprofen 800 Mg Tablet PO 08/24/24 17:09 800 mg ONCE ONE Administration Prednisone 50 mg 08/24/24 17:07 08/24/24 17:14 Prednisone 20mg Tab PO 08/24/24 17:08 50 mg ONCE ONE Administration Medical Decision Narrative: In summary patient is a 48-year-old male past medical history described above presents emergency department for evaluation of left ankle pain in the setting of gout. Patient is hemodynamically stable nontoxic-appearing upon arrival, afebrile. Patient's pain is consistent with multiple previous gout attacks and is in the same affected joint making gout attack likely. Shared decision-making discussion was had given that I cannot with certainty rule out infectious art hritis and patient wishes to not pursue workup at this time and will be treated for presumed gout flare. He has capacity to make this decision and we will pursue this with steroids and ibuprofen. He does have CKD so he was encouraged to limit his ibuprofen and drink much of water throughout this course will follow-up with his family doctor next week and will be discharged with these prescriptions. Critical Care Critical Care Time Critical Care Time: No
== END 2024-08-24 17:37 | disposition home or self-care (01) ==
PROVIDERS: Emergency Provider Emergency Medicine; PCP Family Medicine
DX: M10.9 Gout, unspecified (principal); M25.572 Pain in left ankle and joints of left foot; M79.672 Pain in left foot
CPT/HCPCS: 99283

== ENCOUNTER 2024-08-30 10:00 | Outpatient (CLI) | payer OTHER, SELFPAY ==
[2024-08-30 18:03] LABS: Coronavirus 19, PCR Not Detected (NotDetected); Influenza A, PCR Not Detected (NotDetected); Influenza B, PCR Not Detected (NotDetected)
[2024-08-30 18:38] LABS: Alanine Aminotransferase 157 U/L (12-78); Albumin Level 4.3 g/dl (3.5-5.0); Albumin/Globulin Ratio 1.3 (1.1-1.8); Alkaline Phosphatase 157 U/L (38-126); Anion Gap 16.8 mEq/L (5-15); Aspartate Amino Transferase 128 U/L (17-59); Bilirubin,Total 0.6 mg/dl (0.2-1.3); Blood Urea Nitrogen 21 mg/dl (9-20); Calcium 9.6 mg/dl (8.4-10.2); Carbon Dioxide 27 mmol/L (22.0-30.0); Chloride 102 mmol/L (98-107); Estimated Glomerular Filt Rate 58 ml/min (>60); GFR (African American) 71 ML/MIN (>60); Globulin 3.2 g/dL (1.3-3.2); Glucose 123 mg/dl (74-100); Potassium 4.8 mmoL/L (3.5-5.1); Sodium 141 mmol/L (136-145); Total Protein,Serum 7.5 g/dl (6.3-8.2)
[2024-08-30 19:29] LABS: Hemoglobin A1C 6.7 % (4.0-6.0)
== END 2024-08-30 23:59 | disposition home or self-care (01) ==
LOC: LAB.DROPOF 08-31 10:10
PROVIDERS: PCP Family Medicine; Visit Provider Family Medicine
DX: R69 Illness, unspecified (principal); Z00.00 Encounter for general adult medical examination without abnormal findings; N18.9 Chronic kidney disease, unspecified; E78.5 Hyperlipidemia, unspecified; Z87.448 Personal history of other diseases of urinary system; I10 Essential (primary) hypertension; Z72.0 Tobacco use
CPT/HCPCS: 80053; 83036; 87636

== ENCOUNTER 2024-09-11 08:49 | Outpatient (CLI) | payer OTHER, SELFPAY ==
--- NOTE | 2024-09-11 08:52 | US_ITS ---
FINAL REPORT TECHNIQUE: Multiple transverse and longitudinal images CLINICAL HISTORY: elevated lft COMPARISON: None FINDINGS: The gallbladder has been surgically resected. No biliary ductal dilatation is appreciated. The common bile duct measures 5 mm in diameter. No fluid collections are seen. Fatty infiltration of the liver is noted. Limited portions of the right kidney are unremarkable. IMPRESSION: Prior cholecystectomy. Fatty infiltration of the liver. Reviewed, Interpreted and Dictated by Tunde Pro MD Transcribed by Danielle Daley Authenticated and [facility]
== END 2024-09-11 23:59 | disposition home or self-care (01) ==
LOC: RAD 08:49
PROVIDERS: PCP Family Medicine; Visit Provider Family Medicine
DX: R74.8 Abnormal levels of other serum enzymes (principal)
CPT/HCPCS: 76705

== ENCOUNTER 2024-10-07 11:40 | Emergency (ER) | payer OTHER, SELFPAY ==
[2024-10-07 11:54] VITALS: BP 157/105; PULSE 85; RESP 20; TEMP 36.5; O2SAT 93; BMI 39.5
--- NOTE | 2024-10-07 11:56 | ED_ITS ---
Discharge Plan Disposition Patient Disposition: Home, Self-Care Condition: Good Prescriptions Prescriptions: New methylprednisolone [Medrol (Rasta)] 4 mg tablets,dose pack See Rx Instructions .ROUTE .COMPLEX 6 Days Qty: 21 0RF Rx Instructions: 4 mg orally ;Medrol dose taper rasta No Action (DME) lancets [OneTouch Delica Plus Lancet] 30 gauge misc See Rx Instructions .ROUTE .MEDSUPPLY Qty: 100 Rx Instructions: As directed colchicine 0.6 mg tablet 1.2 mg PO ONCE Qty: 30 2RF Rx Instructions: Take 1.2 mg at first sign of gout attack, followed by 0.6 an hour after naproxen 500 mg tablet 500 mg PO DAILY PRN (Reason: pain) Qty: 20 0RF metformin 500 mg tablet 500 mg PO BID Qty: 60 3RF (DME) blood-glucose meter Kit See Rx Instructions .ROUTE .MEDSUPPLY Qty: 1 0RF Rx Instructions: As directed (DME) lancets [Accu-Chek Softclix Lancets] Misc See Rx Instructions .ROUTE .MEDSUPPLY Qty: 100 3RF Rx Instructions: As directed atorvastatin [Lipitor] 10 mg tablet 10 mg PO DAILY Qty: 90 2RF (DME) Accu-Chek Carole Plus test strp Strip See Rx Instructions .ROUTE .MEDSUPPLY Qty: 100 3RF Rx Instructions: As directed TID amlodipine 10 mg tablet See Rx Instructions .ROUTE .COMPLEX Qty: 90 3RF Dose Instruction: TAKE 1 TABLET BY MOUTH ONCE DAILY Rx Instructions: TAKE 1 TABLET BY MOUTH ONCE DAILY lisinopril 40 mg tablet 40 mg PO DAILY Qty: 90 3RF metoprolol succinate 50 mg tablet extended release 24 hr 50 mg PO DAILY Referrals Follow up/Referrals: Hina Chambers APRN [Primary Care Provider] - See instructions Activity Restrictions/Add. Instructions Additional Instructions/Restrictions: Take medication as prescribed. Increase fluids. Follow up with PCP if symptoms persist or worsen. Clinical Impressions Clinical Impression: Gout attack Instructions Patient Instructions: DI for Gout Print Language Print Language: Hebrew Discharge ED Provider: Val Grove [facility] HPI General Stated complaint: gout left wrist Mode of Arrival: Ambulatory Source of Information: Patient Time Seen by Provider: 10/07/24 11:54 Description of Symptoms (Recalled from Triage Doc. by RN): PAIN IN LEFT HAND HEENT Symptoms (Recalled from RN notes): No Resp Symptoms (Recalled from RN notes): No Skin Symptoms (Recalled from RN notes): No MS Symptoms (Recalled from RN notes): Yes Functional Status (Recalled from RN notes): WNL History of Present Illness Provider Complaint: Pt reports previous issues with gout and feels like he has gout again in his left wrist. He denies taking anything for his symptoms. Related Data Home Medications ?Medication ?Instructions ?Recorded ?Confirmed metoprolol succinate 50 mg 50 mg PO DAILY 11/08/23 10/12/24 tablet,extended release 24 hr lancets 30 gauge (OneTouch Delica #100 ea 10/12/24 10/12/24 Plus Lancet) Previous Rx's ?Medication ?Instructions ?Recorded blood-glucose meter #1 ea 09/04/24 lancets (Accu-Chek Softclix #100 ea 09/04/24 Lancets) metformin 500 mg tablet 500 mg PO BID #60 tabs 09/04/24 atorvastatin 10 mg tablet (Lipitor) 10 mg PO DAILY #90 tabs 10/04/24 blood sugar diagnostic (Accu-Chek #100 ea 10/04/24 Carole Plus test strips) methylprednisolone 4 mg tablets in See Rx Instructions .Route 10/07/24 a dose pack (Medrol (Rasta)) .COMPLEX 6 days #21 tabs amlodipine 10 mg tablet See Rx Instructions .Route 10/09/24 .COMPLEX #90 tabs lisinopril 40 mg tablet 40 mg PO DAILY #90 tabs 10/09/24 colchicine 0.6 mg tablet 1.2 mg (2 x 0.6 mg) PO ONCE #30 10/12/24 tabs naproxen 500 mg tablet 500 mg PO DAILY PRN pain #20 tabs 10/12/24 Allergies Allergy/AdvReac Type Severity Reaction Status Date / Time No Known Allergies Allergy Verified 10/12/24 10:52 Worker's Comp Is this a Worker's Comp case?: No [facility] Disclaimer: The information contained in this section may have been updated after the patient was seen, as this information can be updated by other users. Medical History Chest pain Angina at rest Wrist pain, left Effusion, left knee Atypical chest pain Muscle spasm Gout attack Strep throat Thoracic aortic aneurysm Aortic root enlargement Malignant hypertension Abnormal EKG HTN (hypertension) Diastolic dysfunction, left ventricle Social History Smoking Status: Current every day smoker tobacco type: smokeless tobacco alcohol intake: never substance use type: denies use current occupational status: employed Travel in the last 8 weeks: None household members: significant other housing: house caffeine: Yes Have you lived/traveled outside [place] in past 30 days?: No Contact w/someone who lives/traveled outside [place] past 30 days?: No Exposure to someone with infectious disease in past 14 days?: No Do you have a fever (greater than 100.4 F or 38 C)?: No Have you tested positive for COVID-19: No Exposed to someone with COVID-19 in past 14 days?: No Do you have a sore throat?: No Do you have a cough?: No Do you have shortness of breath?: No Do you have a headache?: No Do you have any weakness?: No Are you experiencing any nausea/vomitting?: No Do you have any diarrhea?: No Are you experiencing any unusual bleeding?: No Do you have any muscle aches/pain?: No Do you have any abdominal pain?: No Are you experiencing loss of taste or smell?: No ROS Obtained: Yes All systems reviewed & no additional complaints except as documented Constitutional Constitutional: Reports system reviewed and no additional complaints, except as documented Eyes Eyes: Reports system reviewed and no additional complaints, except as documented ENT Ears, Nose, Mouth, and Throat: Reports system reviewed and no additional complaints, except as documented Cardiovascular Cardiovascular: Reports system reviewed and no additional complaints, except as documented Respiratory Respiratory: Reports system reviewed and no additional complaints, except as documented Gastrointestinal Gastrointestingal: Reports system reviewed and no additional complaints, except as documented Genitourinary Male Genitourinary: Reports system reviewed and no additional complaints, except as documented Musculoskeletal Musculoskeletal: Reports system reviewed and no additional complaints, except as documented, Reports arthralgias and Reports joint swelling Integumentary/Breasts Skin/Breast: Reports system reviewed and no additional complaints, except as documented Neurologic Neurologic: Reports system reviewed and no additional complaints, except as documented Endocrine Endocrine: Reports system reviewed and no additional complaints, except as documented Hematologic/Lymphatic Henatologic/Lymphatic: Reports system reviewed and no additional complaints, except as documented Allergic/Immunologic Allergic/Immunologic: Reports system reviewed and no additional complaints, except as documented Physical Exam General General appearance: alert and in no apparent distress Head Head exam: atraumatic and normocephalic Eye Eye exam: Present normal appearance ENT ENT exam: Present normal exam Neck Neck exam: Present normal inspection; Absent lymphadenopathy Chest Chest inspection: Present normal inspection and symmetric chest wall rise Respiratory Respiratory exam: Present normal lung sounds bilaterally Cardiovascular Cardiovascular exam: Present regular rate and normal rhythm Abdominal Exam Abdominal exam: Present soft Extremities Exam Extremities exam: Present tenderness (left wrist), normal capillary refill, edema (left wrist) and joint swelling (left wrist) Back Exam Back exam: Present normal inspection Neurological Exam Neurological exam: Present alert and oriented X3 Psychiatric Psychiatric exam: Present normal affect and normal mood Skin Skin exam: Present warm, dry and intact Lymphatic Lymphatic Findings: no adenopathy Medical Decision Making Medical Records Screening: Per USPSTF and CDC recommendations, given the prevalence of disease in our region, it is our hospital?s policy to screen for HIV and viral Hepatitis for all patients aged 18 and over and those with ongoing risk factors. Maximo Inquiry Pt receiving controlled substance: No Maximo was queried for this patient: No Vital Signs: 10/07/24 11:54 Temperature 977 F H Temperature Source Oral Pulse Rate [Left Radial] 85 Respiratory Rate 20 Blood Pressure [Left Arm] 157/105 H Blood Pressure Mean [Left Arm] 122 02 Sat by Pulse Oximetry 93 L
[2024-10-07 12:18] VITALS: BP 166/116
[2024-10-07 12:19] VITALS: BP 166/118; PULSE 85; RESP 20; TEMP 36.5
== END 2024-10-07 12:29 | disposition home or self-care (01) ==
PROVIDERS: Emergency Provider Nurse Practitioner Family; PCP Family Medicine
DX: M10.042 Idiopathic gout, left hand (principal)
CPT/HCPCS: 99213; G0381

== ENCOUNTER 2024-10-12 09:09 | Outpatient (CLI) | payer OTHER, SELFPAY ==
[2024-10-12 18:44] LABS: Uric Acid 6.9 mg/dl (3.5-8.5)
== END 2024-10-12 23:59 ==
LOC: LAB.DROPOF 10-13 09:09
PROVIDERS: PCP Family Medicine; Visit Provider Family Medicine
DX: M10.9 Gout, unspecified (principal); R74.8 Abnormal levels of other serum enzymes
CPT/HCPCS: 84550

== ENCOUNTER 2024-10-23 09:48 | Outpatient (CLI) | payer OTHER, SELFPAY ==
[2024-10-23 13:09] LABS: Blood Urea Nitrogen 29 mg/dl (9-20); Estimated Glomerular Filt Rate 54 ml/min (>60); GFR (African American) 65 ML/MIN (>60)
[2024-10-23 15:13] LABS: Prostate Specific Ag Screen 1.3 ng/ml (0.0-4.0)
== END 2024-10-23 23:59 | disposition home or self-care (01) ==
LOC: LAB 09:50
PROVIDERS: PCP Family Medicine; Visit Provider Urology
DX: N18.9 Chronic kidney disease, unspecified (principal)
CPT/HCPCS: 36415; 82565; 84520; G0103

== ENCOUNTER 2024-10-25 14:28 | Outpatient (CLI) | payer OTHER, SELFPAY ==
--- NOTE | 2024-10-25 14:28 | XR_ITS ---
FINAL REPORT CLINICAL HISTORY: kidney diease COMPARISON: None FINDINGS: A single view of the abdomen was obtained. There is a nonobstructive bowel gas pattern. There is a moderate amount of stool in the colon. There are no abnormally dilated loops of small bowel. There is no evidence of kidney stones. IMPRESSION: Moderate stool burden. Reviewed, Interpreted and Dictated by Raul Jeffers MD Transcribed by Mary Ellen Harris Authenticated and [facility]
--- NOTE | 2024-10-25 14:28 | US_ITS ---
FINAL REPORT CLINICAL HISTORY: .kidney disease COMPARISON: None FINDINGS: RENAL ULTRASOUND Ultrasound images of the kidneys were obtained. Limited images of the liver parenchyma demonstrate normal echogenicity. The right kidney measures 12.9 cm in length. It is normal echogenicity. There is no hydronephrosis. The left kidney measures 12.6 cm in length. It is normal echogenicity. There is no hydronephrosis. IMPRESSION: Normal renal ultrasound. Reviewed, Interpreted and Dictated by Raul Jeffers MD Transcribed by Mary Ellen Harris Authenticated and [facility]
[2024-10-25 14:59] LABS: Collection Time,Urine 1800 hours; Total Volume,Urine 1625 mL (800-1800)
[2024-10-25 15:38] LABS: Patient Height,Urine 42 inches
[2024-10-25 15:40] LABS: Patient Weight,Urine 306 lbs
[2024-10-25 16:55] LABS: Creatinine 24 Hour,Urine 2015 mg/24hr (630-2500); Creatinine,Urine Random 124 mg/dL (Not Estab.)
[2024-10-25 16:56] LABS: Total Protein 24 Hour,Urine 699 mg/24 hr (40-90)
== END 2024-10-25 23:59 | disposition home or self-care (01) ==
LOC: RAD 14:28
PROVIDERS: PCP Family Medicine; Visit Provider Urology
DX: N18.9 Chronic kidney disease, unspecified (principal)
CPT/HCPCS: 74018; 76770; 82043; 82575; 84155

== ENCOUNTER 2024-11-09 10:37 | Outpatient (CLI) | payer OTHER, SELFPAY ==
[2024-11-09 11:36] LABS: Albumin Level 4.8 g/dl (3.5-5.0); Chloride 103 mmol/L (98-107); Sodium 142 mmol/L (136-145)
[2024-11-09 11:38] LABS: Blood Urea Nitrogen 26 mg/dl (9-20); Estimated Glomerular Filt Rate 46 ml/min (>60); GFR (African American) 55 ML/MIN (>60)
[2024-11-09 11:39] LABS: Alanine Aminotransferase 84 U/L (12-78); Albumin/Globulin Ratio 1.5 (1.1-1.8); Alkaline Phosphatase 97 U/L (38-126); Aspartate Amino Transferase 72 U/L (17-59); Bilirubin,Direct 0.2 mg/dl (0.0-0.4); Bilirubin,Indirect 0.9 mg/dL (0.0-0.9); Bilirubin,Total 1.1 mg/dl (0.2-1.3); Bilirubin,Unconjugated 0.9 mg/dL (0.0-1.1); Calcium 9.9 mg/dl (8.4-10.2); Carbon Dioxide 30 mmol/L (22.0-30.0); Globulin 3.3 g/dL (1.3-3.2); Glucose 99 mg/dl (74-100); Total Protein,Serum 8.1 g/dl (6.3-8.2)
== END 2024-11-09 23:59 | disposition home or self-care (01) ==
LOC: LAB 10:38
PROVIDERS: PCP Family Medicine; Visit Provider Family Medicine
DX: N18.9 Chronic kidney disease, unspecified (principal); R80.9 Proteinuria, unspecified
CPT/HCPCS: 36415; 80053; 80076

== ENCOUNTER 2024-11-13 13:28 | Outpatient (CLI) | payer OTHER, SELFPAY ==
[2024-11-13 19:43] LABS: Albumin Level 4.6 g/dl (3.5-5.0); Chloride 106 mmol/L (98-107); Sodium 142 mmol/L (136-145)
[2024-11-13 19:44] LABS: Potassium 4.6 mmoL/L (3.5-5.1)
[2024-11-13 19:46] LABS: Alanine Aminotransferase 81 U/L (12-78); Albumin/Globulin Ratio 1.5 (1.1-1.8); Anion Gap 11.6 mEq/L (5-15); Aspartate Amino Transferase 64 U/L (17-59); Blood Urea Nitrogen 24 mg/dl (9-20); Carbon Dioxide 29 mmol/L (22.0-30.0); Estimated Glomerular Filt Rate 33 ml/min (>60); GFR (African American) 40 ML/MIN (>60); Globulin 3.1 g/dL (1.3-3.2); Total Protein,Serum 7.7 g/dl (6.3-8.2)
[2024-11-13 19:47] LABS: Alkaline Phosphatase 133 U/L (38-126); Calcium 9.4 mg/dl (8.4-10.2); Glucose 96 mg/dl (74-100)
== END 2024-11-13 23:59 | disposition home or self-care (01) ==
LOC: LAB.DROPOF 11-15 10:11
PROVIDERS: PCP Family Medicine; Visit Provider Family Medicine
DX: N18.9 Chronic kidney disease, unspecified (principal)
CPT/HCPCS: 80053

== ENCOUNTER 2024-11-17 08:50 | Outpatient (CLI) | payer OTHER, SELFPAY ==
--- NOTE | 2024-11-17 08:53 | CA_ITS ---
FINAL REPORT CLINICAL HISTORY: HTN,DM,HLD,SMOKER FINDINGS: DOPPLER RENAL VESSELS Intrarenal resistive indices on the right are 0.51, normal . Intrarenal resistive indices on the left are 0.54, normal . Right main renal artery systolic velocity: 130 cm/sec. Aortic-right renal artery flow velocity ratio: 1.63 COMMENT: No evidence of hemodynamically significant renal artery stenosis . Left main renal artery systolic velocity: 150 cm/sec. Aortic-left renal artery flow velocity ratio: 1.87 COMMENT: No evidence of hemodynamically significant renal artery stenosis . IMPRESSION: No evidence of hemodynamically significant renal artery stenosis CTA or gadolinium-enhanced MR may be considered as a more sensitive exam. Alternatively noncontrast MRI may be considered for assessing main renal arteries for stenosis as a more sensitive exam if the patient has renal insufficiency. Reviewed, Interpreted and Dictated by Jackie Ibarra MD Transcribed by Miranda Rolle Authenticated and . [facility]
--- NOTE | 2024-11-17 08:53 | CA_ITS ---
APPROVED REPORT EXAM: Comprehensive 2D, Doppler, and color-flow Echocardiogram Gravity Prospecting Operator Helper: Elise Lawrence RVT Ht: 6 ft 2 in Wt: 305lbs BSA: 2.60 BP: 140/92 mmHg Indications: HTN,ABN EKG,DM,HTN,HLD,SMOKER 2D Dimensions IVSd 1.89 cm M: 0.6-1.2 LA Volume 46.90 mL PWd 1.17 cm M: 0.6 - 1.2 LA Volume Index 18.04 mL/m2 (M/F) 16-34 LVDd 3.36 cm M: 4.2 - 5.9 M-Mode Dimensions RVDd 4.16 cm (0.9-2.6) LA Diam 4.30 cm (1.9-4.0) LVDd 5.82 cm (3.5-5.7) LVDs 3.63 cm (3.5-5.7) IVSd 0.98 cm (0.6-1.1) PWd 1.07 cm (0.6-1.1) EF (Teich) 66.90% FS 37.60% EDV (Teich) 167.90 mL ESV (Teich) 55.50 mL LV Diastology E Decel Time 293 (160-240 msec) E/A Ratio 0.8 Aortic Valve DRAGAN Index 1.62 cm2/m2 AoV Peak Constantine. 128.0 (50-130 cm/s) AI PHT 1670.00 ms AO Peak GR. 6.50 mmHg AO Mean GR. 3.60 (<5 mmHg) AO VTI 22.4 (18-25 cm) DRAGAN (VTI) 4.32 (2.5-4.5 cm2) Mitral Valve MV E Max Constantine. 66.0 (40-130 cm/s) MV A Velocity 83.0 (40-130 cm/s) E/A Ratio 0.80 MV PHT 86.0 ms Pulmonary Valve PV Peak Velocity 83.0 (50-150 cm/s) Left Ventricle The left ventricle is normal size. The left ventricular systolic function is low normal. There is increased LV wall thickness. There is normal LV segmental wall motion. The left ventricular diastolic function is normal. LVEF is 50%. Right Ventricle The right ventricle is not well-visualized, but grossly appears mildly dilated with normal RV function. Atria The left atrium size is normal. The right atrium size is normal. There is no Doppler evidence of interatrial shunt. Aortic Valve The aortic valve is mildly thickened. Mild aortic regurgitation. There is no aortic valvular stenosis. Mitral Valve The mitral valve is normal in structure. No evidence of mitral valve stenosis. Trace mitral regurgitation. Tricuspid Valve Tricuspid valve is grossly normal in structure and function. Trace tricuspid regurgitation. There is insufficient TR jet to estimate RVSP. Pulmonic Valve The pulmonary valve is normal in structure. Trace pulmonic regurgitation. Great Vessels The aortic root is normal in size. IVC is normal in size and collapses >50% with inspiration. Pericardium There is no pericardial effusion. Other Information Study Quality: Fair Conclusion Normal LV systolic function. RV not well-visualized, but grossly appears mildly dilated with normal RV function. Mild AI. Electronically signed by : Shannon Joseph MD 11/26/2024 00:50:47
== END 2024-11-17 23:59 | disposition home or self-care (01) ==
LOC: RT 08:51
PROVIDERS: PCP Family Medicine; Visit Provider Family Medicine
DX: I35.1 Nonrheumatic aortic (valve) insufficiency (principal); I10 Essential (primary) hypertension; R94.31 Abnormal electrocardiogram [ECG] [EKG]
CPT/HCPCS: 93306; 93976

== ENCOUNTER 2025-04-04 15:13 | Outpatient (CLI) | payer OTHER, SELFPAY ==
[2025-04-04 20:55] LABS: Alanine Aminotransferase 54 U/L (12-78); Albumin Level 4.5 g/dl (3.5-5.0); Albumin/Globulin Ratio 1.3 (1.1-1.8); Alkaline Phosphatase 116 U/L (38-126); Anion Gap 15.2 mEq/L (5-15); Aspartate Amino Transferase 47 U/L (17-59); Bilirubin,Total 1.0 mg/dl (0.2-1.3); Blood Urea Nitrogen 31 mg/dl (9-20); Calcium 9.4 mg/dl (8.4-10.2); Carbon Dioxide 27 mmol/L (22.0-30.0); Chloride 102 mmol/L (98-107); Creatinine,Serum 1.70 mg/dl (0.66-1.25); Estimated Glomerular Filt Rate 43 ml/min (>60); GFR (African American) 52 ML/MIN (>60); Globulin 3.4 g/dL (1.3-3.2); Glucose 118 mg/dl (74-100); Potassium 5.2 mmoL/L (3.5-5.1); Sodium 139 mmol/L (136-145); Total Protein,Serum 7.9 g/dl (6.3-8.2)
--- OUTSIDE RECORDS SUMMARY | 2025-04-05 12:42 | XMS_ITS | Encounter Summary ---
Author Organization [facility] Address [address] [place] [address] Care Team Providers Care Oscillograph Technician Name Role Phone Edita Rascon COLOR WORKER Primary Care Provider [phone] Kennedy Bermudez MD Unavailable [phone] Encounter Details Date Type Department Care Team (Latest Contact Info) Description 03/09/2025 Travel Social History Tobacco Use Types Packs/Day Years Used Date Smoking Tobacco: Never Smokeless Tobacco: Current Snuff Alcohol Use Standard Drinks/Week Comments Never 0 (1 standard drink = 0.6 oz pur e alcohol) Sex and Gender Information Value Date Recorded Sex Assigned at Not on file Legal Sex Male 8:42 PM EDT Gender Identity Not on file Sexual Orientation Not on file 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 Not on file Not on file documented as of this encounter Plan of Treatment Not on file documented as of this encounter Visit Diagnoses Not on filedocumented in this encounter Additional Health Concerns Assessment Noted Time A fall risk assessment has been complete d for the patient 03/27/2021 12:32 PM EDT documented as of this encounter Care Teams Oscillograph Technician Relationship Specialty Start Date End Date Edita Rascon APRN [address] [place] [address] PCP - General 02/07/21 Kennedy Bermudez MD [address] [facility] [address] [place] [address] Referring Physician 03/19/21 documented as of this encounter
--- OUTSIDE RECORDS SUMMARY | 2025-04-05 12:42 | XMS_ITS | Clinical Summary ---
Author Organization Healthcare Address [address] [place] [address] Care Team Providers Care Tamping Machine Operator Road Forms Name Role Phone Edita Rascon LEIDY Primary Care Provider [phone] Kennedy Bermudez MD Unavailable [phone] Allergies No known active allergies Medications amLODIPine (Norvasc) 10 MG tablet Take 10 mg by mouth 1 (one) time each day. 02/20/2021 Active carvedilol (Coreg) 12.5 MG tablet Take 12.5 mg by mouth 2 (two) times a day. 03/03/2021 Active lisinopril 10 MG tablet Take 10 mg by mouth 2 (two) times a day. 03/08/2021 Active Active Problems Problem Noted Date Diagnosed Date Ascending aortic aneurysm 03/27/2021 Overview (04/24/2021): TRICUSPID VALVE Obesity (BMI 30-39.9) 03/27/2021 Cholelithiasis 03/25/2021 Mediastinal lymphadenopathy 03/25/2021 Overview (03/25/2021): calcified Vitamin D deficiency 09/09/2017 Hyperuricemia 09/02/2017 Hypertensive heart disease 08/25/2017 CKD (chronic kidney disease) stage 3, GFR 30-59 ml/min 07/30/2017 Encounters Date Type Department Care Team Description 03/09/2025 Travel from Last 3 Months Family History Medical History Relation Name Comments Accidental Father Breast cancer Mother Hypertension Mother Relation Name Status Comments Father Mother Social History Tobacco Use Types Packs/Day Years Used Date Smoking Tobacco: Never Smokeless Tobacco: Current Snuff Tobacco Cessation:Ready to Q uit: No Alcohol Use Standard Drinks/Week Comments Never 0 (1 standard drink = 0.6 oz pur e alcohol) Sex and Gender Information Value Date Recorded Sex Assigned at Not on file Legal Sex Male 8:42 PM EDT Gender Identity Not on file Sexual Orientation Not on file 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 Not on file Not on file Last Filed Vital Signs Vital Sign Reading Time Taken Comments Blood Pressure 202/148 03/27/2021 12:32 PM EDT Pulse 69 03/27/2021 12:32 PM EDT Temperature - - Respiratory Rate - - Oxygen Saturation 98% 03/27/2021 12:32 PM EDT Inhaled Oxygen Concentration - - Weight 131 kg (289 lb) 03/27/2021 12:32 PM EDT Height 188 cm (6' 2 ) 03/27/2021 12:32 PM EDT Body Mass Index 37.11 03/27/2021 12:32 PM EDT Plan of Treatment Health Maintenance Due Date Last Done Comments [facility]-Depression Screening 1973 [facility]-/Child/Adol SDOH Screenings 1973 [facility]- SDOH Screenings 1991 [facility]-Adult SDOH Screenings 1991 [facility]-DTaP,Tdap,and Td Vaccine s (1 - Tdap) 1992 [facility]-Hepatitis B Vaccines (1 of 3 - 19+ 3-dose series) 1992 CT Colonography 2018 Colonoscopy 2018 FIT-DNA 2018 FIT 2018 FOBT 2018 Sigmoidoscopy 2018 [facility]-Colorectal Cancer Screening 2018 [facility]-Pneumococcal Vaccine: 50 + Years (1 of 1 - PCV) 2023 [facility]-Zoster Vaccines (1 of 2) 2023 [id number]-44 Vaccine (1 - 20 24-25 season) 2024 [facility]-Influenza Vaccine (#1) 2025 HPV Vaccines Aged Out No longer eligi ble based on patient's age to complete this topic [facility]-HIB Vaccines Aged Out No longer e ligible based on patient's age to complete this topic [facility]-Hepatitis A Vaccines Aged Out No longer eligible based on patient's age to complete this topic [facility]-IPV Vaccines Aged Out No longer e ligible based on patient's age to complete this topic [facility]Y-Rotavirus Vaccines Aged Out No lo nger eligible based on patient's age to complete this topic Insurance AETNA [facility] MEDICAID Care Teams Tamping Machine Operator Road Forms Relationship Specialty Start Date End Date Edita Rascon APRN [address] [place] [address] PCP - General 02/07/21 Kennedy Bermudez MD [address] [facility] [address] [place] [address] Referring Physician 03/19/21
== END 2025-04-04 23:59 | disposition home or self-care (01) ==
LOC: LAB.DROPOF 04-05 12:39
PROVIDERS: PCP Family Medicine; Visit Provider Family Medicine
DX: N18.9 Chronic kidney disease, unspecified (principal)
CPT/HCPCS: 80053

== ENCOUNTER 2025-04-22 22:04 | Emergency (ER) | payer OTHER, SELFPAY ==
[2025-04-22 22:11] VITALS: BP 131/103; PULSE 73; RESP 18; TEMP 36.7; O2SAT 97; BMI 36.9
--- NOTE | 2025-04-22 22:11 | XR_ITS ---
PROCEDURE INFORMATION: Exam: XR Right Foot Exam date and time: 04/22/2025 10:27 PM Age: 49 years old Clinical indication: Pain; Ankle; Right; Additional info: Inversion injury TECHNIQUE: Imaging protocol: Radiologic exam of the right foot. Views: 1 or 2 views. COMPARISON: CR XR ANKLE RT MIN 3V 04/22/2025 10:27 PM FINDINGS: Bones/joints: No fracture. Normal alignment. Calcaneal spurs. Soft tissues: Unremarkable. IMPRESSION: No acute findings.
--- NOTE | 2025-04-22 22:11 | XR_ITS ---
PROCEDURE INFORMATION: Exam: XR Right Ankle Exam date and time: 04/22/2025 10:27 PM Age: 49 years old Clinical indication: Pain; Ankle; Right; Additional info: Inversion injury TECHNIQUE: Imaging protocol: Radiologic exam of the right ankle. Views: 3 or more views. COMPARISON: CR XR FOOT RT 2V 04/22/2025 10:27 PM FINDINGS: Bones/joints: No fracture. Normal alignment. Calcaneal spurs. Soft tissues: Unremarkable. IMPRESSION: No acute findings.
--- NOTE | 2025-04-22 22:13 | HMH.EDGENADL ---
Discharge Plan Disposition Patient Disposition: Home, Self-Care Prescriptions Prescriptions: No Action carvedilol [Coreg] 25 mg tablet 25 mg PO BID Qty: 60 3RF Rx Instructions: must administer with a meal/food colchicine 0.6 mg tablet 1.2 mg PO ONCE PRN Rx Instructions: Take 1.2 mg at first sign of gout attack, followed by 0.6 an hour after isosorbide dinitrate [Isordil] 40 mg tablet 40 mg PO TID Qty: 90 3RF Rx Instructions: allow nitrate-free interval of 12-14 hrs per 24-hr period (DME) lancets [OneTouch Delica Plus Lancet] 30 gauge misc See Rx Instructions .ROUTE .MEDSUPPLY Qty: 100 Rx Instructions: As directed atorvastatin [Lipitor] 10 mg tablet 10 mg PO DAILY (DME) blood-glucose meter Kit See Rx Instructions .ROUTE .MEDSUPPLY Qty: 1 0RF Rx Instructions: As directed (DME) lancets [Accu-Chek Softclix Lancets] Misc See Rx Instructions .ROUTE .MEDSUPPLY Qty: 100 3RF Rx Instructions: As directed (DME) Accu-Chek Carole Plus test strp Strip See Rx Instructions .ROUTE .MEDSUPPLY Qty: 100 3RF Rx Instructions: As directed TID amlodipine 10 mg tablet See Rx Instructions .ROUTE .COMPLEX Qty: 90 3RF Dose Instruction: TAKE 1 TABLET BY MOUTH ONCE DAILY Rx Instructions: TAKE 1 TABLET BY MOUTH ONCE DAILY lisinopril 40 mg tablet 40 mg PO DAILY Qty: 90 3RF Ozempic 0.25 mg or 0.5 mg (2 mg/3 mL) pen injector See Rx Instructions .ROUTE .COMPLEX Qty: 3 3RF Dose Instruction: INJECT 0.25 MG SUBCUTANEOUSLY ONCE WEEKLY Rx Instructions: INJECT 0.25 MG SUBCUTANEOUSLY ONCE WEEKLY dapagliflozin propanediol [Farxiga] 5 mg tablet See Rx Instructions .ROUTE .COMPLEX Qty: 90 1RF Dose Instruction: TAKE 1 TABLET BY MOUTH ONCE DAILY Rx Instructions: TAKE 1 TABLET BY MOUTH ONCE DAILY Referrals Follow up/Referrals: Hina Chambers APRN [Primary Care Provider, Family Practice] - See instructions Zhen Valencia DO [Staff Physician, Orthopedics] - See instructions Activity Restrictions/Add. Instructions Additional Instructions/Restrictions: No evidence of fracture or dislocation on your x-rays today this is consistent with an ankle sprain. You may elevate and compress your foot and take Tylenol as needed for your symptoms. You may bear weight as tolerated if you are not improving in 1 to 2 weeks please follow-up with Dr. Valencia for further management and evaluation. Clinical Impressions Clinical Impression: Right ankle sprain Print Language Print Language: Sammarinese Discharge ED Provider: Sakshi Kim General Adult HPI General Chief complaint: Extremity Problem,Nontraumatic Stated complaint: AO 04-22 right ankle pain and swollen Time Seen by Provider: 04/22/25 22:09 History of Present Illness HPI narrative: Patient is a 49-year-old male presenting today with a right ankle/foot injury. States he was playing around with his dog when he sustained an inversion injury. Said difficulty walking since this morning when the injury occurred. Does have numerous chronic comorbidities including diabetes chronic kidney disease etc. States he does not have any decree sensation in his foot due to his diabetes. Has not taken any medications for this all day. Related Data Home Medications ?Medication ?Instructions ?Recorded ?Confirmed lancets 30 gauge (OneTouch Delica #100 ea 10/12/24 04/04/25 Plus Lancet) atorvastatin 10 mg tablet (Lipitor) 10 mg PO DAILY 11/13/24 04/04/25 colchicine 0.6 mg tablet 1.2 mg PO ONCE PRN 11/27/24 04/04/25 Previous Rx's ?Medication ?Instructions ?Recorded blood-glucose meter #1 ea 09/04/24 lancets (Accu-Chek Softclix #100 ea 09/04/24 Lancets) blood sugar diagnostic (Accu-Chek #100 ea 10/04/24 Carole Plus test strips) amlodipine 10 mg tablet See Rx Instructions .Route 10/09/24 .COMPLEX #90 tabs lisinopril 40 mg tablet 40 mg PO DAILY #90 tabs 10/09/24 isosorbide dinitrate 40 mg tablet 40 mg PO TID #90 tabs 11/27/24 (Isordil) carvedilol 25 mg tablet (Coreg) 25 mg PO BID #60 tabs 12/11/24 semaglutide 0.25 mg or 0.5 mg (2 See Rx Instructions .Route 01/31/25 mg/3 mL) subcutaneous pen injector .COMPLEX #3 mL (Ozempic) dapagliflozin propanediol 5 mg See Rx Instructions .Route 03/14/25 tablet (Farxiga) .COMPLEX #90 tabs Allergies Allergy/AdvReac Type Severity Reaction Status Date / Time No Known Allergies Allergy Verified 04/04/25 15:08 [facility] Disclaimer: The information contained in this section may have been updated after the patient was seen, as this information can be updated by other users. Medical History Bronchitis Chest pain Angina at rest Wrist pain, left Effusion, left knee Atypical chest pain Muscle spasm Gout attack Strep throat Thoracic aortic aneurysm Aortic root enlargement Malignant hypertension Abnormal EKG HTN (hypertension) Diastolic dysfunction, left ventricle Social History Smoking Status: Current every day smoker tobacco type: smokeless tobacco alcohol intake: never substance use type: denies use current occupational status: employed Travel in the last 8 weeks?: None household members: significant other housing: house caffeine: Yes Have you lived/traveled outside US in past 30 days?: No Contact w/someone who lives/traveled outside US past 30 days?: No Exposure to someone with infectious disease in past 14 days?: No Do you have a fever (greater than 100.4 F or 38 C)?: No Have you tested positive for COVID-19?: No Exposed to someone with COVID-19 in past 14 days?: No Do you have a sore throat?: No Do you have a cough?: No Do you have any weakness?: No Do you have any diarrhea?: No Are you experiencing any unusual bleeding?: No Do you have any muscle aches/pain?: No Do you have any abdominal pain?: No Are you experiencing loss of taste or smell?: No Other Medical History Have you received the Flu Vaccine for this season: No Have you received the Pneumonia Vaccine: No ROS Obtained: Yes All systems reviewed & no additional complaints except as documented Physical Exam General General appearance: alert Respiratory Respiratory exam: Present normal lung sounds bilaterally Cardiovascular Cardiovascular exam: Present regular rate Extremities Exam Extremities exam: Present other (No obvious soft tissue abnormalities but patient has tenderness over the right lateral malleolus and mid and hindfoot on the right foot neurovascularly intact) Neurological Exam Neurological exam: Present alert and oriented X3 Medical Decision Making Medical Records Screening: Per USPSTF and CDC recommendations, given the prevalence of disease in our region, it is our hospital?s policy to screen for HIV and viral Hepatitis for all patients aged 18 and over and those with ongoing risk factors. Maximo Inquiry Pt receiving controlled substance: No Vital Signs: 04/22/25 22:11 Temperature 98.0 F Temperature Source Oral Pulse Rate [Right Radial] 73 Respiratory Rate 18 Blood Pressure [Right Arm] 131/103 H Blood Pressure Mean [Right Arm] 112 Blood Pressure Position [Right Arm] Supine 02 Sat by Pulse Oximetry 97 Oxygen Delivery Method Room Air Orders (Tests/Meds): ED MEDICATIONS Discontinued Medications Generic Name Dose Route Start Last Admin Trade Name Freq PRN Reason Stop Dose Admin Acetaminophen 1,000 mg 04/22/25 22:11 04/22/25 22:16 Acetaminophen 500mg Tab PO 04/22/25 22:12 1,000 mg ONCE ONE Administration ORDERS Category Date Time Status Ankle XR -Right minimum 3 Views [XR ankle RT min 3V] Exams 04/22/25 22:11 Taken Stat Foot XR right 2 views [XR foot RT 2V] Stat Exams 04/22/25 22:11 Taken Medical Decision Narrative: Patient with above history and physical presents today with right ankle and foot injury. Differential includes fracture dislocation sprain etc. I favor sprain at the moment we will get a plain film of his foot ankle and reassess. X-rays were performed which I personally interpreted which shows no evidence of any fracture or dislocation we will treat the patient with an ankle sprain he was given an Aircast he has crutches at home he is able to ambulate here. He will follow-up with Dr. Valencia if he is not improving. He has been advised to take Tylenol as he has CKD in addition to other supportive care. Patient discharged in stable condition. Critical Care Critical Care Time Critical Care Time: No
--- OUTSIDE RECORDS SUMMARY | 2025-04-22 22:13 | XMS_ITS ---
Author Organization [facility] Address [address] [place] [address] Care Team Providers Care Insole Lip Turner Name Role Phone Edita Rascon APRN Primary Care Provider [phone] Kennedy Bermudez MD Unavailable [phone] Transplant Episode Kidney Candidate [facility] ([place], [place]) - [place] Referred on 04/20/2025 Marked as Active on 04/20/2025 Kidney CoordinatorRicardo Montelongo Fax: N/A Email: N/A Scores Score Value Updated Exceptions/Reas ons CPRA Not available EPTS (Calc) 17 04/22/2025 Care Team Name Role Phone Fax Email Ricardo Montelongo Kidney Coordinator [phone] N/A N/A Hina Chambers APRN Referring Physician [phone] N/A Events Pre-Transplant Referred: 04/20/2025
--- OUTSIDE RECORDS SUMMARY | 2025-04-22 22:13 | XMS_ITS | Clinical Summary ---
Author Organization Healthcare Address [address] [place] [address] Care Team Providers Care Literacy Coordinator Name Role Phone Edita watts Arun FORBES Primary Care Provider [phone] Kennedy Bermudez MD Unavailable [phone] Allergies No known active allergies Medications amLODIPine [...] Encounters Date Type Department Care Team Description 04/20/2025 Telephone [facility] [address] [facility] [address] [place] [id number] Ricardo Montelongo Referral - Kidney Txp ([facility]) 03/09/2025 Travel from Last 3 Months Family [...] Date Last Done Comments [facility]-Depression Screening 1973 [facility]-Infant/Child/Adol SDOH Screenings 1973 [facility]- SDOH Screenings 1991 [...] 2023 [facility]-Zoster Vaccines (1 of 2) 2023 [id number] Vaccine (1 - 20 24-25 season) 2024 [...] age to complete this topic Insurance AETNA [facility] MEDICAID Care Teams Literacy Coordinator Relationship Specialty Start Date End Date Edita Rascon APRN [address] [place] [address] PCP - General 02/07/21 Kennedy Bermudez MD [address] [facility] [address] [place] [address] Referring Physician 03/19/21
--- OUTSIDE RECORDS SUMMARY | 2025-04-22 22:13 | XMS_ITS | Encounter Summary ---
Author Organization [facility] Address [address] [place] [address] Care Team Providers Care Case Manager Specialist Name Role Phone Edita Rascon APRN Primary Care Provider [phone] Kennedy Bermudez MD Unavailable [phone] Reason for Referral * Transplant (Routine) - Pending Review Specialty Diagnoses / Procedures Referred By More hernández Referred To Contact Transplant Surgery / Transplant Diagnoses ESRD (end stage renal disease) ([facility]) Hina Chambers APRN [address] [place] [address] Phone: tel: fax: [facility] [place] [address] [address] Phone: tel: fax: Referral ID Status Reason Start Date Expiration Date Visits Requested Visits Authorized [id number] Pending Review Specialty Services Required 04/20/2025 10/20/2026 999 [id number] Reason for Visit * Reason Comments Referral - Kidney Txp [place] Encounter Details Date Type Department Care Team ([facility] st Contact Info) Description 04/20/2025 Telephone [facility] [address] [address] Ricardo Montelongo Transplant [address] [place] [address] Referral - Kidney Txp ([place] [facility]) Social History Tobacco Use Types Packs/Day Years [...] on file documented as of this encounter Miscellaneous Notes * Telephone Encounter - Ricardo Montelongo - 04/20/2025 9:32 AM EDT Received kidney transplant referral. Will call patient to schedule ICE once financial clearance is obtained. documented in this encounter Plan of Treatment Scheduled Orders Name Type Priority Associated Diagnoses Orde r Schedule ABO/Rh Lab Routine End stage renal disease ([facility]) Expected: 04/20/2025 (Approximate), Expires: 10/22/2026 Hemoglobin A1c Lab Routine End stage renal disease ([facility]) Expected: 04/20/2025 (Approximate), Expires: 10/22/2026 Nicotine Cotinine Metabolite Lab Routine End stage renal disease ([facility]) Expected: 04/20/2025 (Approximate), Expires: 10/22/2026 Serum Drug Screen Lab Routine End stage renal disease ([facility]) Expected: 04/20/2025 (Approximate), Expires: 10/22/2026 HLA NGS High Resolution Typing Solid Organ Patient Lab Routine End stage renal disease ([facility]) Expected: 04/20/2025 (Approximate), Expires: 10/22/2026 HLA Antibody Testing (LSA) Lab Routine End stage renal disease ([facility]) Expected: 04/20/2025 (Approximate), Expires: 10/22/2026 Scheduled Referrals Name Type Priority Associated Diagnoses Order Schedule Ambulatory referral to Solid Organ Transplant Team Outpatient Referral Routine ESRD (end stage renal disease) ([facility]) Ordered: 04/20/2025 documented as of this encounter Visit Diagnoses Diagnosis ESRD (end stage renal disease) ([facility])- Primary End stage renal disease End stage renal disease ([facility]) End stage renal disease documented in this encounter Additional Health Concerns Assessment Noted Time A fall risk assessment has been complete d for the patient 03/27/2021 12:32 PM EDT documented as of this encounter Care Teams Case Manager Specialist Relationship Specialty Start Date End Date Edita Rascon APRN [address] [place] [address] PCP - General 02/07/21 Kennedy Bermudez MD [address] [place] [address] Referring Physician 03/19/21 documented as of this encounter
--- OUTSIDE RECORDS SUMMARY | 2025-04-22 22:13 | XMS_ITS | Encounter Summary ---
Author Organization [facility] Address [address] [place] [address] Care Team Providers Care Policy And Planning Manager Name Role Phone Edita Rascon BARTENDER Primary Care Provider [phone] Kennedy Bermudez MD Unavailable [phone] Encounter Details Date Type Department Care Team [...] documented as of this encounter Care Teams Policy And Planning Manager Relationship Specialty Start Date End Date Edita Rascon APRN [address] [place] [address] PCP - General 02/07/21 Kennedy Bermudez MD [address] [facility] [address] [place] [address] Referring Physician 03/19/21 documented as of this encounter
[2025-04-22] MEDS: ACETAMINOPHEN 500MG TAB 1000 MG PO (22:16)
[2025-04-22 23:10] VITALS: BP 130/88; PULSE 88; RESP 16; TEMP 36.4; O2SAT 98
--- NOTE | 2025-04-22 23:11 | PC.NURSE ---
aircast placed on right ankle. and patient able to ambulate
== END 2025-04-22 23:11 | disposition home or self-care (01) ==
PROVIDERS: Emergency Provider Student in an Organized Health Care Education/Training Program; PCP Family Medicine
DX: S93.401A Sprain of unspecified ligament of right ankle, initial encounter (principal); X50.1XXA Overexertion from prolonged static or awkward postures, initial encounter
CPT/HCPCS: 73610; 73620; 99283

== ENCOUNTER 2025-05-06 12:54 | Emergency (ER) | payer OTHER, SELFPAY ==
[2025-05-06 13:05] VITALS: BP 104/77; PULSE 79; O2SAT 91
[2025-05-06 13:11] VITALS: BP 131/87; PULSE 69; O2SAT 93
--- NOTE | 2025-05-06 13:11 | XR_ITS ---
PROCEDURE INFORMATION: Exam: XR Right Knee Exam date and time: 05/06/2025 1:35 PM Age: 49 years old Clinical indication: Pain; Knee; Right; Additional info: Lateral pain after twisting TECHNIQUE: Imaging protocol: Radiologic exam of the right knee. Views: 3 views. COMPARISON: CR XR KNEE RT 3V 01/18/2023 11:53 AM FINDINGS: Bones/joints: Mild Tricompartmental joint space narrowing and osteophyte formation consistent with degenerative changes. There is no evidence of acute fracture.There is no evidence of malalignment or dislocation. Mild suprapatellar joint effusion Soft tissues: Normal. IMPRESSION: 1. Mild Tricompartmental joint space narrowing and osteophyte formation consistent with degenerative changes. 2. There is no evidence of acute fracture.There is no evidence of malalignment or dislocation.
--- OUTSIDE RECORDS SUMMARY | 2025-05-06 13:11 | XMS_ITS | Encounter Summary ---
Author Organization [facility] Address [address] [place] [address] Care Team Providers Care Donor Processor Name Role Phone Edita Rascon APRN Primary Care Provider [phone] Kennedy Bermudez MD Unavailable [phone] Reason for Referral * Transplant (Routine) - Authorized Specialty Diagnoses / Procedures Referred By More t Referred To Contact Transplant Surgery / Transplant Diagnoses ESRD (end stage renal disease) ([facility]) Hina Chambers APRN [address] [place] [address] Phone: tel: fax: [facility] [address] [address] Phone: tel: fax: Referral ID Status Reason Start Date Expiration Date Visits Requested Visits Authorized [id number] Authorized Specialty Services Required 04/20/2025 08/24/2025 999 999 Reason for Visit * Reason Comments Referral - Kidney Txp [place] Encounter Details Date Type Department Care Team (Late st Contact Info) Description 04/20/2025 Telephone [facility] [address] [address] Ricardo Montelongo Transplant [address] [place] [phone] Referral - Kidney Txp ([place] [facility]) Social History Tobacco Use Types Packs/Day [...] ABO/Rh Lab Routine End stage renal disease ([facility]) Expected: 04/20/2025 (Approximate), Expires: 10/22/2026 Hemoglobin A1c Lab Routine End stage renal disease ([facility]) Expected: 04/20/2025 (Approximate), Expires: 10/22/2026 Nicotine Cotinine Metabolite Lab Routine End stage renal disease ([facility]) Expected: 04/20/2025 (Approximate), Expires: 10/22/2026 Serum Drug Screen Lab Routine End stage renal disease ([facility]) Expected: 04/20/2025 (Approximate), Expires: 10/22/2026 HLA NGS High Resolution Typing Solid Organ Patient Lab Routine End stage renal disease ([facility]) Expected: 04/20/2025 (Approximate), Expires: 10/22/2026 HLA Antibody Testing (LSA) Lab Routine End stage renal disease ([facility]) Expected: 04/20/2025 (Approximate), Expires: 10/22/2026 Scheduled Referrals Name Type Priority Associated Diagnoses Order Schedule Ambulatory referral to Solid Organ Transplant Team Outpatient Referral Routine ESRD (end stage renal disease) ([facility]) Ordered: 04/20/2025 documented as of this encounter Visit Diagnoses Diagnosis ESRD (end stage renal disease) ([facility])- Primary End stage renal disease End stage renal disease ([facility]) End stage renal disease documented in this encounter Additional Health Concerns Assessment Noted Time A fall risk assessment has been complete d for the patient 03/27/2021 12:32 PM EDT documented as of this encounter Care Teams Donor Processor Relationship Specialty Start Date End Date Edita Rascon APRN [address] [place] [address] PCP - General 02/07/21 Kennedy Bermudez MD [facility] [address] [address] Referring Physician 03/19/21 documented as of this encounter
--- OUTSIDE RECORDS SUMMARY | 2025-05-06 13:11 | XMS_ITS ---
Author Organization [facility] Address [address] [place] [address] Care Team Providers Care Alarm Mechanic Name Role Phone Edita Rascon APRN Primary Care Provider [phone] Kennedy Bermudez MD Unavailable [phone] Transplant Episode Kidney Candidate [facility] ([place], [place]) - [place] Referred on 04/20/2025 Marked as Active on 04/20/2025 Kidney CoordinatorRicardo Montelongo Fax: N/A Email: N/A Scores Score Value Updated Exceptions/Reas ons CPRA Not available EPTS (Calc) 17 05/06/2025 Care Team Name Role Phone Fax Email Ricardo Montelongo Kidney Coordinator [phone] N/A N/A Hina Chambers APRN Referring Physician [phone] N/A Events Pre-Transplant Referred: 04/20/2025
--- OUTSIDE RECORDS SUMMARY | 2025-05-06 13:11 | XMS_ITS | Encounter Summary ---
Author Organization Healthcare Address [address] [id number] Care Team Providers Care Packing Machine Feeder Name Role Phone Sudeepesther Elanaadair Arun FORBES Primary Care Provider [phone]- [phone] Kennedy Bermudez MD Unavailable [phone] Reason for Visit * Reason Comments Referral - Kidney Txp 2nd call Encounter Details Date Type Department Care Team (Late st Contact Info) Description 04/27/2025 Telephone [facility] [address] [facility] [address] [place] [phone] Ricardo Montelongo Transplant [address] [place] [address] Referral - Kidney Txp (2nd call) Social History Tobacco Use Types Packs/Day Years [...] * Telephone Encounter - Ricardo Montelongo - 04/27/2025 1:05 PM EDT Called pt, no answer, left detailed voicemail, notifying receipt of referral and requested return call to discuss scheduling kidney txp consult w/[facility]. documented in this encounter Plan of Treatment Not on file documented as of this encounter Visit Diagnoses Not on filedocumented in this encounter Additional Health Concerns Assessment Noted Time A fall risk assessment has been complete d for the patient 03/27/2021 12:32 PM EDT documented as of this encounter Care Teams Packing Machine Feeder Relationship Specialty Start Date End Date Edita Rascon APRN [address] [place] [address] PCP - General 02/07/21 Kennedy Bermudez MD [address] [address] Referring Physician 03/19/21 documented as of this encounter
--- OUTSIDE RECORDS SUMMARY | 2025-05-06 13:11 | XMS_ITS | Encounter Summary ---
Author Organization [facility] Address [address] [place] [address] Care Team Providers Care Stone Mill Operator Name Role Phone Edita Rascon MANAGER LANDSCAPE Primary Care Provider [phone]- [phone] Kennedy Bermudez MD Unavailable [phone] Encounter Details Date Type Department Care Team [...] documented as of this encounter Care Teams Stone Mill Operator Relationship Specialty Start Date End Date Edita Rascon APRN [address] [place] [address] PCP - General 02/07/21 Kennedy Bermudez MD [address] [facility] [address] [place] [address] Referring Physician 03/19/21 documented as of this encounter
--- OUTSIDE RECORDS SUMMARY | 2025-05-06 13:11 | XMS_ITS | Clinical Summary ---
Author Organization Healthcare Address [address] [place] [address] Care Team Providers Care Electrical Electronics Engineer Name Role Phone Edita watts Arun FORBES Primary Care Provider [phone]- [phone] Kennedy Bermudez MD Unavailable [phone] Allergies No known active allergies Medications amLODIPine [...] Encounters Date Type Department Care Team Description 04/27/2025 Telephone [facility] [address] [facility] [address] [place] [phone] Ricardo Montelongo Referral - Kidney Txp (2nd call) 04/24/2025 Telephone [facility] [address] [address] [place] [address] ReginaldRuddyfco Golden Referral - Kidney Txp (1st call) 04/20/2025 Telephone [facility] [address] [place] [address] Ricardo Montelongo Referral - Kidney Txp ([facility]) 03/09/2025 Travel from Last 3 Months Family [...] 2023 UKY-Zoster Vaccines (1 of 2) 2023 CER-NWDUT-22 Vaccine (1 - 20 24-25 season) 2024 [...] age to complete this topic Insurance [employer]ICA[employer] Care Teams Electrical Electronics Engineer Relationship Specialty Start Date End Date Edita Rascon APRN [address] [place], [place] [phone] PCP - General 02/07/21 Kennedy Bermudez MD [address] [place] [address] Referring Physician 03/19/21
--- OUTSIDE RECORDS SUMMARY | 2025-05-06 13:11 | XMS_ITS | Encounter Summary ---
Author Organization Healthcare Address [address] [phone] Care Team Providers Care Samples And Repairs Preparer Name Role Phone Sudeepesther Eulogioarmando Arun FORBES Primary Care Provider [phone]- [phone] Kennedy Bermudez MD Unavailable [phone] Reason for Visit * Reason Comments Referral - Kidney Txp 1st call Encounter Details Date Type Department Care Team (Late st Contact Info) Description 04/24/2025 Telephone [facility] [address] [facility] [address] [place] [phone] Ricardo Montelongo Transplant [address] [place] [address] Referral - Kidney Txp (1st call) Social History Tobacco Use Types Packs/Day [...] * Telephone Encounter - Ricardo Montelongo - 04/24/2025 10:07 AM EDT Called pt, no answer, left detailed [...] documented as of this encounter Care Teams Samples And Repairs Preparer Relationship Specialty Start Date End Date Edita Rascon APRN [address] [place], [place] [phone] PCP - General 02/07/21 Kennedy Bermudez MD [facility] [address] [address] Referring Physician 03/19/21 documented as of this encounter
[2025-05-06] MEDS: ACETAMINOPHEN 500MG TAB 1000 MG PO (13:27)
[2025-05-06 13:30] VITALS: BP 116/79; BP 130/82; PULSE 80; RESP 18; O2SAT 96; BMI 39.0
--- NOTE | 2025-05-06 13:42 | ED_ITS ---
Discharge Plan Disposition Patient Disposition: Home, Self-Care Condition: Good Prescriptions Prescriptions: New lidocaine 5 % adhesive patch,medicated 1 patch topical DAILY Qty: 15 0RF Rx Instructions: leave on most painful area for up to 12 hrs No Action carvedilol [Coreg] 25 mg tablet 25 mg PO BID Qty: 60 3RF Rx Instructions: must administer with a meal/food colchicine 0.6 mg tablet 1.2 mg PO ONCE PRN Rx Instructions: Take 1.2 mg at first sign of gout attack, followed by 0.6 an hour after isosorbide dinitrate [Isordil] 40 mg tablet 40 mg PO TID Qty: 90 3RF Rx Instructions: allow nitrate-free interval of 12-14 hrs per 24-hr period (DME) lancets [OneTouch Delica Plus Lancet] 30 gauge misc See Rx Instructions .ROUTE .MEDSUPPLY Qty: 100 Rx Instructions: As directed atorvastatin [Lipitor] 10 mg tablet 10 mg PO DAILY (DME) blood-glucose meter Kit See Rx Instructions .ROUTE .MEDSUPPLY Qty: 1 0RF Rx Instructions: As directed (DME) lancets [Accu-Chek Softclix Lancets] Misc See Rx Instructions .ROUTE .MEDSUPPLY Qty: 100 3RF Rx Instructions: As directed (DME) Accu-Chek Carole Plus test strp Strip See Rx Instructions .ROUTE .MEDSUPPLY Qty: 100 3RF Rx Instructions: As directed TID amlodipine 10 mg tablet See Rx Instructions .ROUTE .COMPLEX Qty: 90 3RF Dose Instruction: TAKE 1 TABLET BY MOUTH ONCE DAILY Rx Instructions: TAKE 1 TABLET BY MOUTH ONCE DAILY lisinopril 40 mg tablet 40 mg PO DAILY Qty: 90 3RF Ozempic 0.25 mg or 0.5 mg (2 mg/3 mL) pen injector See Rx Instructions .ROUTE .COMPLEX Qty: 3 3RF Dose Instruction: INJECT 0.25 MG SUBCUTANEOUSLY ONCE WEEKLY Rx Instructions: INJECT 0.25 MG SUBCUTANEOUSLY ONCE WEEKLY dapagliflozin propanediol [Farxiga] 5 mg tablet See Rx Instructions .ROUTE .COMPLEX Qty: 90 1RF Dose Instruction: TAKE 1 TABLET BY MOUTH ONCE DAILY Rx Instructions: TAKE 1 TABLET BY MOUTH ONCE DAILY Referrals Follow up/Referrals: Hina Chambers APRN [Primary Care Provider, Family Practice] - See instructions Zhen Valencia DO [Staff Physician, Orthopedics] - See instructions Activity Restrictions/Add. Instructions Additional Instructions/Restrictions: You were seen for a knee sprain. You will need to follow up with orthopedics. Please return here for any increased pain or swelling. Clinical Impressions Clinical Impression: Knee sprain Print Language Print Language: Hungarian Discharge ED Provider: Glen Acosta General Adult HPI <AIMEE Martinez - Last Filed: 05/06/25 15:22> General Chief complaint: Extremity Injury, Lower Stated complaint: AO-05/04/25 rt knee pain Time Seen by Provider: 05/06/25 12:59 Mode of Arrival: Ambulatory Source of Information: Patient Description of Symptoms (Recalled from ER Triage Doc. by RN): Patient presents to ED for knee pain after falling in a hole 2 days ago. History of Present Illness HPI narrative: Patient presents with right knee pain. He reports that he was walking on Wednesday and stepped in a hole twisting his right knee. He denies any fall. He reports decreased flexion due to pain. Denies taking any medication for pain at home. Denies any fevers or vomiting. MD complaint: Right knee pain Onset (ago): day(s) (2) Location: right and lower extremity Radiation: non-radiation Severity: moderate Consistency: constant Relieving factors: rest Exacerbating factors: movement Associated symptoms: denies other symptoms Treatments prior to arrival: none Related Data Home Medications ?Medication ?Instructions ?Recorded ?Confirmed lancets 30 gauge (OneTouch Delica #100 ea 10/12/2406/21 Plus Lancet) atorvastatin 10 mg tablet (Lipitor) 10 mg PO DAILY 04/04/25 colchicine 0.6 mg tablet 1.2 mg PO ONCE PRN 11/27/24 04/04/25 Previous Rx's ?Medication ?Instructions ?Recorded blood-glucose meter #1 ea 09/04/24 lancets (Accu-Chek Softclix #100 ea 09/04/24 Lancets) blood sugar diagnostic (Accu-Chek #100 ea 10/04/24 Carole Plus test strips) amlodipine 10 mg tablet See Rx Instructions .Route 0 10/09/24 .COMPLEX #90 tabs lisinopril 40 mg tablet 40 mg PO DAILY #90 tabs 01/1 3/25 isosorbide dinitrate 40 mg tablet 40 mg PO TID #90 tab s 11/27/24 (Isordil) carvedilol 25 mg tablet (Coreg) 25 mg PO BID #60 tabs 12/11/24 semaglutide 0.25 mg or 0.5 mg (2 See Rx Instructions . Route 01/31/25 mg/3 mL) subcutaneous pen injector .COMPLEX #3 mL (Ozempic) dapagliflozin propanediol 5 mg See Rx Instructions .Ro [place] 03/14/25 tablet (Farxiga) .COMPLEX #90 tabs lidocaine 5 % topical patch 1 patch topical DAILY #15 ea 05/06/25 Allergies Allergy/AdvReac Type Severity Reaction Status Date / Time No Known Allergies Allergy Verified 04/04/25 15:08 [facility] <AIMEE Martinez - Last Filed: 05/06/25 15:22> [facility] Disclaimer: The information contained in this section may have been updated after the patient was seen, as this information can be updated by other users. Medical History Bronchitis Chest pain Angina at rest Wrist pain, left Effusion, left knee Atypical chest pain Muscle spasm Gout attack Strep throat Thoracic aortic aneurysm Aortic root enlargement Malignant hypertension Abnormal EKG HTN (hypertension) Diastolic dysfunction, left ventricle Social History Smoking Status: Never smoker alcohol intake: never substance use type: denies use current occupational status: employed Travel in the last 8 weeks?: None household members: significant other housing: house caffeine: Yes Have you lived/traveled outside US in past 30 days?: No Contact w/someone who lives/traveled outside US past 30 days?: No Exposure to someone with infectious disease in past 14 days?: No Do you have a fever (greater than 100.4 F or 38 C)?: No Have you tested positive for COVID-19?: No Exposed to someone with COVID-19 in past 14 days?: No Do you have a sore throat?: No Do you have a cough?: No Do you have any weakness?: No Do you have any diarrhea?: No Are you experiencing any unusual bleeding?: No Do you have any muscle aches/pain?: No Do you have any abdominal pain?: No Are you experiencing loss of taste or smell?: No Other Medical History Have you received the Flu Vaccine for this season: No Have you received the Pneumonia Vaccine: No <AIMEE Martinez - Last Filed: 05/06/25 15:22> ROS Obtained: Yes Systems reviewed as appropriate & no additional complaints except as documented Physical Exam <AMIEE Martinez - Last Filed: 05/06/25 15:22> General General appearance: alert and in no apparent distress Head Head exam: atraumatic and normocephalic Eye Eye exam: Present normal appearance and EOMI Chest Chest inspection: Present symmetric chest wall rise Respiratory Respiratory exam: Present normal lung sounds bilaterally; Absent wheezes or stridor Cardiovascular Cardiovascular exam: Present regular rate and normal rhythm; Absent systolic murmur Extremities Exam Extremities exam: Present tenderness (Lateral right knee) and other (Right lower extremity neurovascularly intact, stable); Absent full ROM (Able to flex to 80 degrees) or joint swelling Neurological Exam Neurological exam: Present alert and oriented X3 Psychiatric Psychiatric exam: Present normal affect and normal mood Skin Skin exam: Present warm, dry and intact Medical Decision Making <AIMEE Martinez Last Filed: 05/06/25 15:22> Medical Records Screening: Per USPSTF and CDC recommendations, given the prevalence of disease in our region, it is our hospital?s policy to screen for HIV and viral Hepatitis for all patients aged 18 and over and those with ongoing risk factors. Maximo Inquiry Pt receiving controlled substance: No Vital Signs: 05/06/25 13:05 05/06/25 13:11 05/06/25 13:30 Temperature Pulse Rate 79 69 Pulse Rate [Right] 80 Respiratory Rate 18 Blood Pressure 104/77 L 131/87 Blood Pressure [Right Arm] 130/82 Blood Pressure Mean Blood Pressure Mean [Right Arm] 98 02 Sat by Pulse Oximetry 91 L 93 L 96 05/06/25 13:30 05/06/25 13:30 05/06/25 13:50 Temperature Pulse Rate 80 Pulse Rate [Right] Respiratory Rate 18 Blood Pressure 130/82 116/79 143/97 H Blood Pressure [Right Arm] Blood Pressure Mean 92 112 Blood Pressure Mean [Right Arm] 02 Sat by Pulse Oximetry 96 05/06/25 14:01 05/06/25 15:04 Temperature 98.2 F Pulse Rate 67 Pulse Rate [Right] Respiratory Rate 18 Blood Pressure 140/102 H 117/85 Blood Pressure [Right Arm] Blood Pressure Mean 114 Blood Pressure Mean [Right Arm] 02 Sat by Pulse Oximetry Orders (Tests/Meds): ED MEDICATIONS Discontinued Medications Generic Name Dose Route Start Last Admin Trade Name Conrad PRN Reason Stop Dose Admin Acetaminophen 1,000 mg 05/06/25 13:11 05/06/25 13:27 Acetaminophen 500mg Tab PO 05/06/25 13:12 1,000 mg ONCE ONE Administration Lidocaine 1 each 05/06/25 15:01 05/06/25 15:10 Lidocaine 5% Transdermal Patch TD 05/06/25 15:02 1 each ONCE ONE Administration ORDERS Category Date Time Status Knee XR right 3 views [XR knee RT 3V] Stat Exams 05/06/25 13:11 Completed Medical Decision Narrative: In summary patient is a 49-year-old male who presents the emergency department for evaluation of right knee pain. Patient is hemodynamically upon arrival, afebrile. Right lateral knee tenderness. Differential diagnosis includes sprain, fracture, meniscus injury. Initial workup will be conducted with x-ray. Initial inventions include Tylenol. Initial workup reviewed by sc x-ray negative for fracture, there are some degenerative changes. Given this patient referred to orthopedics for further workup.. <Glen Acosta MD - Last Filed: 05/06/25 22:14> Vital Signs: 05/06/25 13:05 05/06/25 13:11 05/06/25 13:30 Temperature Pulse Rate 79 69 Pulse Rate [Right] 80 Respiratory Rate 18 Blood Pressure 104/77 L 131/87 Blood Pressure [Right Arm] 130/82 Blood Pressure Mean Blood Pressure Mean [Right Arm] 98 02 Sat by Pulse Oximetry 91 L 93 L 96 05/06/25 13:30 05/06/25 13:30 05/06/25 13:50 Temperature Pulse Rate 80 Pulse Rate [Right] Respiratory Rate 18 Blood Pressure 130/82 116/79 143/97 H Blood Pressure [Right Arm] Blood Pressure Mean 92 112 Blood Pressure Mean [Right Arm] 02 Sat by Pulse Oximetry 96 05/06/25 14:01 05/06/25 15:04 Temperature 98.2 F Pulse Rate 67 Pulse Rate [Right] Respiratory Rate 18 Blood Pressure 140/102 H 117/85 Blood Pressure [Right Arm] Blood Pressure Mean 114 Blood Pressure Mean [Right Arm] 02 Sat by Pulse Oximetry Orders (Tests/Meds): ED MEDICATIONS Discontinued Medications Generic Name Dose Route Start Last Admin Trade Name Conrad PRN Reason Stop Dose Admin Acetaminophen 1,000 mg 05/06/25 13:11 05/06/25 13:27 Acetaminophen 500mg Tab PO 05/06/25 13:12 1,000 mg ONCE ONE Administration Lidocaine 1 each 05/06/25 15:01 05/06/25 15:10 Lidocaine 5% Transdermal Patch TD 05/06/25 15:02 1 each ONCE ONE Administration ORDERS Category Date Time Status Knee XR right 3 views [XR knee RT 3V] Stat Exams 05/06/25 13:11 Completed Medical Decision Narrative: In summary patient is a 49-year-old male who presents the emergency department for evaluation of right knee pain. Patient is hemodynamically upon arrival, afebrile. Right lateral knee tenderness. Differential diagnosis includes sprain, fracture, meniscus injury. Initial workup will be conducted with x-ray. Initial inventions include Tylenol. Initial workup reviewed by me x-ray negative for fracture, there are some degenerative changes. Given this patient referred to orthopedics for further workup.. I was consulted by the CARLOS ALBERTO, and we discussed the complexity of the problems being addressed. I approve the treatment and management plan for this patient's care in the emergency department, thus performing a substantive portion of the medical decision making. Glen Acosta MD Critical Care <AIMEE Martinez - Last Filed: 05/06/25 15:22> Critical Care Time Critical Care Time: No
[2025-05-06 13:50] VITALS: BP 143/97
[2025-05-06 14:01] VITALS: BP 140/102
[2025-05-06 15:04] VITALS: BP 117/85; PULSE 67; RESP 18; TEMP 36.8; O2SAT 96
[2025-05-06] MEDS: LIDOCAINE 5% TRANSDERMAL PATCH 1 EACH TD (15:10)
== END 2025-05-06 15:12 | disposition home or self-care (01) ==
PROVIDERS: Emergency Provider Student in an Organized Health Care Education/Training Program; PCP Family Medicine
DX: S83.91XA Sprain of unspecified site of right knee, initial encounter (principal); M25.561 Pain in right knee; X50.9XXA Other and unspecified overexertion or strenuous movements or postures, initial encounter
CPT/HCPCS: 73562; 99283

== ENCOUNTER 2025-06-04 09:01 | Outpatient (CLI) | payer OTHER, SELFPAY ==
--- OUTSIDE RECORDS SUMMARY | 2025-06-04 09:14 | XMS_ITS | Encounter Summary ---
Author Organization [facility] Address [address] [id number] Care Team Providers Care Pebble Mill Operator Name Role Phone Sudeepesther Edita Dias APRN Primary Care Provider [phone]- [phone] Kennedy Bermudez MD Unavailable [phone] Reason for Visit * Reason Comments Referral - Kidney Txp 2nd call Encounter Details Date Type Department Care Team (Late st Contact Info) Description 04/27/2025 Telephone [facility] Transplant [facility] [address] [facility] [address] [place] [address] Ricardo Montelongo Transplant [address] [phone] Referral - Kidney Txp (2nd call) Social [...] documented as of this encounter Care Teams Pebble Mill Operator Relationship Specialty Start Date End Date Edita Rascon APRN [address] [place] [address] PCP - General 02/07/21 Kennedy Bermudez MD [address] [address] Referring Physician 03/19/21 documented as of this encounter
--- OUTSIDE RECORDS SUMMARY | 2025-06-04 09:14 | XMS_ITS | Encounter Summary ---
Author Organization [facility] Address [address] [place] [address] Care Team Providers Care Call Center Consultant Name Role Phone Edita Rascon APRN Primary Care Provider [phone] Kennedy Bermudez MD Unavailable [phone] Reason for Referral * Transplant (Routine) - Authorized Specialty Diagnoses / Procedures Referred By More hernández Referred To Contact Transplant Surgery / Transplant Diagnoses ESRD (end stage renal disease) ([facility]) Hina Chambers APRN [address] [place] [address] Phone: tel: fax: [facility] [place] [address] [address] Phone: tel: fax: Referral ID Status Reason Start Date Expiration Date Visits Requested Visits Authorized [id number] Authorized Specialty Services Required 04/20/2025 11/24/2025 999 999 Reason for Visit * Reason Comments Referral - Kidney Txp [place] Encounter Details Date Type Department Care Team ([facility] [place] st Contact Info) Description 04/20/2025 Telephone [facility] Trans[facility] [address] [phone] Ricardo Montelongo Transplant [address] [place] [address] Referral - Kidney Txp ([place]) Social History Tobacco Use Types Packs/Day [...] ABO/Rh Lab Routine End stage renal disease ([facility]) Expected: 04/20/2025 (Approximate), Expires: 10/22/2026 Hemoglobin A1c Lab Routine End stage renal disease ([facility]) Expected: 04/20/2025 (Approximate), Expires: 10/22/2026 Nicotine Cotinine Metabolite Lab Routine End stage renal disease ([facility]) Expected: 04/20/2025 (Approximate), Expires: 10/22/2026 Serum Drug Screen Lab Routine End stage renal disease ([facility]) Expected: 04/20/2025 (Approximate), Expires: 10/22/2026 HLA NGS High Resolution Typing Solid Organ Patient Lab Routine End stage renal disease ([facility]) Expected: 04/20/2025 (Approximate), Expires: 10/22/2026 HLA Antibody Testing (LSA) Lab Routine End stage renal disease ([facility]) Expected: 04/20/2025 (Approximate), Expires: 10/22/2026 Scheduled Referrals Name Type Priority Associated Diagnoses Order Schedule Ambulatory referral to Solid Organ Transplant Team Outpatient Referral Routine ESRD (end stage renal disease) ([facility]) Ordered: 04/20/2025 documented as of this encounter Visit Diagnoses Diagnosis ESRD (end stage renal disease) ([facility])- Primary End stage renal disease End stage renal disease ([facility]) End stage renal disease documented in this encounter Additional Health Concerns Assessment Noted Time A fall risk assessment has been complete d for the patient 03/27/2021 12:32 PM EDT documented as of this encounter Care Teams Call Center Consultant Relationship Specialty Start Date End Date Edita Rascon APRN [address] [place] [address] PCP - General 02/07/21 Kennedy Bermudez MD [facility] [address] [address] Referring Physician 03/19/21 documented as of this encounter
--- OUTSIDE RECORDS SUMMARY | 2025-06-04 09:14 | XMS_ITS | Encounter Summary ---
Author Organization [facility] Address [address] [phone] Care Team Providers Care Hydraulic Punch Press Operator Name Role Phone Sudeepesther Eulogiorohitadair Dias APRN Primary Care Provider [phone] Kennedy Bermudez MD Unavailable [phone] Reason for Visit * Reason Comments Referral - Kidney Txp 1st call Encounter Details Date Type Department Care Team (Late st Contact Info) Description 04/24/2025 Telephone [facility] Transplant Center [address] [place] [address] Ricardo Montelongo Transplant [address] [phone] Referral - Kidney Txp (1st call) Social [...] encounter Miscellaneous Notes * Telephone Encounter - Ricrado Montelongo - 04/24/2025 10:07 AM EDT Called [...] documented as of this encounter Care Teams Hydraulic Punch Press Operator Relationship Specialty Start Date End Date Edita Rascon APRN [address] [place], [place] [phone] PCP - General 02/07/21 Kennedy Bermudez MD [address] [address] Referring Physician 03/19/21 documented as of this encounter
--- OUTSIDE RECORDS SUMMARY | 2025-06-04 09:14 | XMS_ITS | Encounter Summary ---
Author Organization [facility] Address [address] [place] [address] Care Team Providers Care Food Service Substitute Name Role Phone Edita Rascon APRN Primary Care Provider [phone]- [phone] Kennedy Bermudez MD Unavailable [phone] Reason for Visit * Reason Comments Referral - Kidney Txp Scheduled ice Encounter Details Date Type Department Care Team (Late st Contact Info) Description 05/09/2025 Telephone [facility] [address] [place] [id number] Ricardo Montelongo Transplant [address] [phone] Referral - Kidney Txp (Scheduled ice) Social History Tobacco Use Types Packs/Day [...] * Telephone Encounter - Ricardo Montelongo - 05/09/2025 11:24 AM EDT Called and spoke with patient. Informed patient that referral was received for ICE. Scheduled patients ICE for :05/31/25. Went over arrival time for visits and what to expect for [place] ICE appointments. Informed patient support person is required for patients ICE and ICE paperwork needs to be filled out and brought in for appointments. Pt expressed understanding. Verified all demographic information. Mailed ICE letter, ICE questionnaire, maps, and all required forms for visit. documented in this encounter Plan of Treatment Not on file documented as of this encounter Visit Diagnoses Not on filedocumented in this encounter Additional Health Concerns Assessment Noted Time A fall risk assessment has been complete d for the patient 03/27/2021 12:32 PM EDT documented as of this encounter Care Teams Food Service Substitute Relationship Specialty Start Date End Date Edita Rascon APRN [address] [place] [address] PCP - General 02/07/21 Kenendy Bermudez MD [address] [address] Referring Physician 03/19/21 documented as of this encounter
--- OUTSIDE RECORDS SUMMARY | 2025-06-04 09:14 | XMS_ITS | Clinical Summary ---
Author Organization [facility] Address [address] [place] [address] Care Team Providers Care Pattern Data Operator Name Role Phone SudeepEdita santana Arun FORBES Primary Care Provider [phone]- [phone] Kennedy Bermudez MD Unavailable [phone] Allergies No known active allergies Medications amLODIPine [...] Encounters Date Type Department Care Team Description 05/09/2025 Telephone [facility] [address] [facility] [address] [place] [phone] Ricardo Montelongo Referral - Kidney Txp (Scheduled ice) 04/27/2025 Telephone [facility] [address] [place] [address] Reginald Ruddyfco Golden Referral - Kidney Txp (2nd call) 04/24/2025 Telephone [facility] [address] [address] Ricardo Montelongo Referral - Kidney Txp (1st call) 04/20/2025 Telephone [facility] [address] [address] Ricardo Montelongo Referral - Kidney Txp ([place] ice) 03/09/2025 Travel from Last 3 Months Family [...] Date Last Done Comments [facility]-Depression Screening 1973 [facility]-HIV Screening 1973 [facility]-Hepatitis C Screening 1973 [facility]-Infant/Child/Adol SDOH Screenings 1973 [facility]-Obesity Intervention 1979 [facility]- SDOH Screenings 1991 [facility]-Adult SDOH Screenings 1991 [facility]-DTaP,Tdap,and Td Vaccine s (1 - Tdap) 1992 [facility]-Hepatitis B Vaccines (1 of 3 - 19+ 3-dose series) 1992 [facility]-Pneumococcal Vaccine: 50 + Years (1 of 2 - PCV) 1992 CT Colonography 2018 Colonoscopy 2018 FIT-DNA 2018 FIT 2018 FOBT 2018 Sigmoidoscopy 2018 [facility]-Colorectal Cancer Screening 2018 [facility]-Zoster Vaccines (1 of 2) 2023 [id number]-32 Vaccine (1 - 20 24-25 season) 2025 [facility]-Influenza Vaccine (#1) 2025 HPV Vaccines Aged [...] patient's age to complete this topic Insurance MEDICAID [facility] MEDICAID Care Teams Pattern Data Operator Relationship Specialty Start Date End Date Edita Rascon APRN [address] [place] [address] PCP - General 02/07/21 Kennedy Bermudez MD 12[address] [facility] [address] [place] [address] Referring Physician 03/19/21
--- OUTSIDE RECORDS SUMMARY | 2025-06-04 09:14 | XMS_ITS ---
Author Organization [facility] Address [address] [place] [address] Care Team Providers Care Pen Tester Name Role Phone Edita Rascon APRN Primary Care Provider [phone] Kennedy Bermudez MD Unavailable [phone] Transplant Episode Kidney Candidate [facility] ([place], [place]) - [place] Referred on 04/20/2025 Marked as Active on 05/09/2025 Reason: Scheduled for ICE Kidney CoordinatorRicardo Montelongo Fax: N/A Email: N/A Scores Score Value Updated Exceptions/Reas ons CPRA Not available EPTS (Calc) 17 06/04/2025 [place] Organ Diagnosis Organ Primary Contributory Kidney Diabetes Mellitus - Type II Hype rtensive Nephrosclerosis Care Team Name Role Phone Fax Email Ricardo Montelongo Kidney Coordinator [phone] N/A N/A Hina Chambers APRN Referring Physician [phone] N/A Events Pre-Transplant Referred: 04/20/2025 Appointments (05/04/2025 - 07/04/2025) When With Visit Type Description 05/31/2025 Transplant - [place] Initial Clinic Ev aluation No Show 05/31/2025 Transplant LAB No Show 05/31/2025 Transplant Initial Clinic Evaluation No Show
[2025-06-04 09:49] LABS: Hematocrit 44.2 % (42.0-52.0); Hemoglobin 13.9 g/dL (14.1-18.0); Immature Granulocytes % 1.3 %; Mean Corpuscular HGB Conc 31.4 g/dL (31.8-35.4); Mean Corpuscular Hemoglobin 28.8 pg (27.0-31.2); Mean Corpuscular Volume 91.5 fl (80-94); Nucleated Red Blood Cells % 0 %; Platelet Count 189 K/mm3 (142-424); Red Blood Count 4.83 M/mm3 (4.60-6.20); Red Cell Distribution Width-SD 46.6 fL; White Blood Count 7.0 K/mm3 (4.8-10.8)
[2025-06-04 10:01] LABS: Albumin Level 4.5 g/dl (3.5-5.0); Chloride 107 mmol/L (98-107); Sodium 138 mmol/L (136-145)
[2025-06-04 10:02] LABS: Potassium 5.1 mmoL/L (3.5-5.1)
[2025-06-04 10:04] LABS: Alanine Aminotransferase 48 U/L (12-78); Albumin/Globulin Ratio 1.5 (1.1-1.8); Anion Gap 15.1 mEq/L (5-15); Aspartate Amino Transferase 42 U/L (17-59); Blood Urea Nitrogen 32 mg/dl (9-20); Carbon Dioxide 21 mmol/L (22.0-30.0); Creatinine,Serum 1.60 mg/dl (0.66-1.25); Estimated Glomerular Filt Rate 46 ml/min (>60); GFR (African American) 55 ML/MIN (>60); Globulin 3.0 g/dL (1.3-3.2); Total Protein,Serum 7.5 g/dl (6.3-8.2)
[2025-06-04 10:05] LABS: Alkaline Phosphatase 89 U/L (38-126); Bilirubin,Total 0.9 mg/dl (0.2-1.3); Calcium 9.8 mg/dl (8.4-10.2); Cholesterol 166 mg/dl (140-200); Glucose 149 mg/dl (74-100); HDL Cholesterol 30 mg/dl (40-60); Triglycerides 354 mg/dl (30-150)
== END 2025-06-04 23:59 | disposition home or self-care (01) ==
LOC: LAB 09:02
PROVIDERS: PCP Family Medicine; Visit Provider Family Medicine
DX: I12.9 Hypertensive chronic kidney disease with stage 1 through stage 4 chronic kidney disease, or unspecified chronic kidney disease (principal); N18.9 Chronic kidney disease, unspecified; E11.9 Type 2 diabetes mellitus without complications; M25.572 Pain in left ankle and joints of left foot
CPT/HCPCS: 36415; 80053; 80061; 85025

== ENCOUNTER 2025-07-11 10:00 | Outpatient (CLI) | payer OTHER, SELFPAY ==
--- OUTSIDE RECORDS SUMMARY | 2025-07-11 10:12 | XMS_ITS ---
Author Organization [facility] Address [address] [place] [address] Care Team Providers Care Cook Dinner Name Role Phone Edita Rascon APRN Primary Care Provider [phone]- [phone] Kennedy Bermudez MD Unavailable [phone] Transplant Episode Kidney Candidate [facility] ([place], [place]) - [place] Referred on 04/20/2025 Marked as Ineligible on 06/07/2025 Reason: Patient No Show Kidney CoordinatorRicardo Montelongo Fax: N/A Email: N/A Scores Score Value Updated Exceptions/Reas ons CPRA Not available EPTS (Calc) 17 07/11/2025 [place] Organ Diagnosis Organ Primary Contributory Kidney Diabetes Mellitus - Type II Hype rtensive Nephrosclerosis Care Team Name Role Phone Fax Email Ricardo Montelongo Kidney Coordinator [phone] N/A N/A Hina Chambers APRN Referring Physician [phone] N/A Events Pre-Transplant Referred: 04/20/2025
--- OUTSIDE RECORDS SUMMARY | 2025-07-11 10:12 | XMS_ITS | Clinical Summary ---
Author Organization [facility] Address [address] [place] [address] Care Team Providers Care Media Arts Professor Name Role Phone SudeepEdita santana Arun FORBES Primary Care Provider [phone]- [phone] Kennedy Bermudez MD Unavailable [phone] Allergies No known active allergies Medications amLODIPine [...] Encounters Date Type Department Care Team Description 06/05/2025 Telephone [facility] Transplant Center [address] [facility] [address] [place] [phone] Ricardo Montelongo Referral - Kidney Txp (No Show) 05/09/2025 Telephone [facility] Trans[facility] [address] [address] Ricardo Monteolngo Referral - Kidney Txp (Scheduled ice) 04/27/2025 Telephone [facility] [address] [address] Ricardo Montelongo Referral - Kidney Txp (2nd call) 04/24/2025 Telephone [facility] [address] [address] Ricardo Montelongo Referral - Kidney Txp (1st call) 04/20/2025 Telephone [facility] [address] [address] Ricardo Montelongo Referral - Kidney Txp ([place] ice) from Last 3 Months Family History Medical [...] 2023 [facility]-Zoster Vaccines (1 of 2) 2023 [id number] Vaccine (1 - 20 24-25 season) 2025 [...] age to complete this topic Insurance [facility] [facility] MEDICAID Care Teams Media Arts Professor Relationship Specialty Start Date End Date Edita Rascon APRN [address] [place] [address] PCP - General 02/07/21 Kennedy Bermudez MD 1210 [facility] [address] [place] [address] Referring Physician 03/19/21
--- OUTSIDE RECORDS SUMMARY | 2025-07-11 10:12 | XMS_ITS | Encounter Summary ---
Author Organization [facility] Address [address] [id number] Care Team Providers Care Supervisor Small Appliance Assembly Name Role Phone Sudeepesther Edita Dias APRN Primary Care Provider [phone]- [phone] Kennedy Bermudez MD Unavailable [phone] Reason for Visit * Reason Comments Referral - Kidney Txp No Show Encounter Details Date Type Department Care Team (Late st Contact Info) Description 06/05/2025 Telephone [facility] [address] [facility] [address] [place] [address] Ricardo Montelongo Transplant [address] [phone] Referral - Kidney Txp (No Show) Social History Tobacco Use Types Packs/Day Years [...] * Telephone Encounter - Ricardo Montelongo - 06/05/2025 11:47 AM EDT Patient no showed to ICE. Call patient to offer a rescheduled appointment. Patient has until EOD 06/06/25 to return call or referral will be placed on hold. documented in this encounter Plan of Treatment Not on file documented as of this encounter Visit Diagnoses Not on filedocumented in this encounter Additional Health Concerns Assessment Noted Time A fall risk assessment has been complete d for the patient 03/27/2021 12:32 PM EDT documented as of this encounter Care Teams Supervisor Small Appliance Assembly Relationship Specialty Start Date End Date Edita Rascon APRN [address] [place], [place] [id number] PCP - General 02/07/21 Kennedy Bermudez MD [address] [address] Referring Physician 03/19/21 documented as of this encounter
--- NOTE | 2025-07-11 10:15 | CT_ITS ---
FINAL REPORT TECHNIQUE: Axial imaging of the chest is obtained after the administration of contrast. 3-D MIP reformatted images were also obtained and reviewed per PE protocol. This study was performed with techniques to keep radiation doses as low as reasonably achievable (ALARA). Individualized dose reduction techniques using automated exposure control or adjustment of mA and/or kV according to the patient's size were employed. CLINICAL HISTORY: ascending thoracic aorta dilation COMPARISON: 07/06/2024 FINDINGS: The pulmonary arteries are well filled. There is no evidence of pulmonary embolus. There is no aortic dissection. There is an ascending aortic aneurysm, measuring 48 mm in size, was previously 46 mm in size, the difference is likely technical. Heart size is normal. There is no mediastinal, hilar, or axillary lymphadenopathy. There is a medial subpleural left upper lobe nodule, best seen on image #50 of series 3, that was not well-seen on the prior exam. There is a subpleural left lower lobe tiny nodule, which is stable. There is a new mixed density irregular nodular opacity in the right lower lobe, measuring 20 x 8 mm in size best seen on image #42 of series 3. There is no pleural or pericardial effusion. Limited evaluation of the upper abdomen is without acute abnormality. No acute osseous abnormality. IMPRESSION: Ascending aortic aneurysm remains present, measuring 48 mm in size, was previously 46 mm in size, the difference is likely technical. No dissection is identified. There is a new mixed density irregular nodule measuring 20 x 8 mm in size in the right lower lobe. Consider PET/CT for further evaluation. Reviewed, Interpreted and Dictated by Jackie Ibarra MD Transcribed by Danielle Daley Authenticated and [facility]
[2025-07-11 10:22] LABS: Blood Urea Nitrogen 28 mg/dl (9-20); Creatinine,Serum 1.70 mg/dl (0.66-1.25); Estimated Glomerular Filt Rate 43 ml/min (>60); GFR (African American) 52 ML/MIN (>60)
[2025-07-11] MEDS: 0.9 % SODIUM CHLORIDE 50 ML VIAL IV (11:16)
[2025-07-11] MEDS: SODIUM CHLORIDE 0.9% 10ML SYR (RAD ONLY) 10 ML IV (11:17)
[2025-07-11] MEDS: IOPAMIDOL-370 (76%);100ML BOTTLE 100 ML IV (11:17)
== END 2025-07-11 23:59 | disposition home or self-care (01) ==
LOC: RAD 10:02
PROVIDERS: PCP Family Medicine; Visit Provider Physician Assistant
DX: I71.21 Aneurysm of the ascending aorta, without rupture (principal); R91.1 Solitary pulmonary nodule
CPT/HCPCS: 36415; 71275; 82565; 84520; Q9967

== ENCOUNTER 2025-08-01 09:49 | Emergency (ER) | payer OTHER, SELFPAY ==
[2025-08-01 09:52] VITALS: BP 110/64; PULSE 96; RESP 16; TEMP 36.6; O2SAT 95; BMI 38.7
--- NOTE | 2025-08-01 09:59 | XR_ITS ---
FINAL REPORT CLINICAL HISTORY: pain FINDINGS: AP, oblique, and lateral views of the left ankle were obtained. There is no fracture or dislocation. The ankle mortise is intact. There is well-corticated calcification distal to the medial malleolus, favor chronic. There is mild degenerative joint disease. Mild soft tissue edema is identified. IMPRESSION: No acute osseous abnormality of the left ankle. If symptoms persist, consider MRI. Reviewed, Interpreted and Dictated by Jackie Ibarra MD Transcribed by Wendy Ronquillo Authenticated and [facility]
--- NOTE | 2025-08-01 10:01 | ED_ITS ---
<Statement entered by Antonio Medina MD - 08/01/25 15:57> I consulted the CARLOS ALBERTO, and we discussed the complexity of the problems being addressed. I approved the treatment and management plan for this patient's care in the emergency department, thus performing a substantial portion of the medical decision making. I evaluated this patient. The patient denies any systemic symptoms including fever, chills, night sweats. The patient's ankle is painful but it is not erythematous and has no significant swelling. Our concern for septic joint is low at this point. Imaging workup was negative. We did offer a broader workup to the patient but he reported that he was confident that this was an exacerbation of his known gout. We offered standard of care including colchi cine, he reported these medications did not work for him and specifically requested steroids and ibuprofen. Given that steroids are not acceptable treatment for gout exacerbation we felt that this was reasonable. We encouraged him to follow closely with his primary care provider. Jone Medina MD Discharge Plan Disposition Patient Disposition: Home, Self-Care Prescriptions Prescriptions: New prednisone 20 mg tablet 20 mg PO BID 5 Days Qty: 10 0RF ibuprofen 800 mg tablet 800 mg PO Q8H PRN (Reason: pain) Qty: 30 0RF No Action Ozempic 0.25 mg or 0.5 mg (2 mg/3 mL) pen injector See Rx Instructions .ROUTE .COMPLEX Qty: 3 2RF Dose Instruction: INJECT 0.25 MG SUBCUTANEOUSLY ONCE WEEKLY Rx Instructions: INJECT 0.25 MG SUBCUTANEOUSLY ONCE WEEKLY (DME) lancets [OneTouch Delica Plus Lancet] 30 gauge misc See Rx Instructions .ROUTE .MEDSUPPLY Qty: 100 Rx Instructions: As directed atorvastatin [Lipitor] 10 mg tablet 10 mg PO DAILY amlodipine 10 mg tablet 10 mg PO DAILY Qty: 90 3RF (DME) blood pressure test kit-large Kit See Rx Instructions .Route Qty: 1 0RF Rx Instructions: As directed (DME) blood-glucose meter Kit See Rx Instructions .ROUTE .MEDSUPPLY Qty: 1 0RF Rx Instructions: As directed (DME) lancets [Accu-Chek Softclix Lancets] Misc See Rx Instructions .ROUTE .MEDSUPPLY Qty: 100 3RF Rx Instructions: As directed (DME) Accu-Chek Carole Plus test strp Strip See Rx Instructions .ROUTE .MEDSUPPLY Qty: 100 3RF Rx Instructions: As directed TID lisinopril 40 mg tablet 40 mg PO DAILY Qty: 90 3RF dapagliflozin propanediol [Farxiga] 5 mg tablet See Rx Instructions .ROUTE .COMPLEX Qty: 90 1RF Dose Instruction: TAKE 1 TABLET BY MOUTH ONCE DAILY Rx Instructions: TAKE 1 TABLET BY MOUTH ONCE DAILY hydralazine 25 mg tablet See Rx Instructions .ROUTE .COMPLEX Qty: 90 1RF Dose Instruction: TAKE 1 TABLET BY MOUTH THREE TIMES DAILY Rx Instructions: TAKE 1 TABLET BY MOUTH THREE TIMES DAILY carvedilol 25 mg tablet See Rx Instructions .ROUTE .COMPLEX Qty: 60 2RF Dose Instruction: TAKE 1 TABLET ORALLY TWICE A DAY; MUST ADMINISTER WITH A MEAL/FOOD Rx Instructions: TAKE 1 TABLET ORALLY TWICE A DAY; MUST ADMINISTER WITH A MEAL/FOOD isosorbide dinitrate 20 mg tablet See Rx Instructions .ROUTE .COMPLEX Qty: 180 5RF Dose Instruction: TAKE 2 TABLETS (40MG) BY MOUTH THREE TIMES DAILY ; ALLOW NITRATE-FREE INTERVAL OF 12-14 HOURS PER 24-HR PERIOD Rx Instructions: TAKE 2 TABLETS (40MG) BY MOUTH THREE TIMES DAILY ; ALLOW NITRATE-FREE INTERVAL OF 12-14 HOURS PER 24-HR PERIOD Referrals Follow up/Referrals: Hina Chambers APRN [Primary Care Provider, Family Practice] - See instructions Activity Restrictions/Add. Instructions Additional Instructions/Restrictions: Your x-rays showed no acute fractures. If you have continued pain please see your PCP in follow-up to receive further treatment and management of your pain. If you have any other concerns or problems please return to the ED. Clinical Impressions Clinical Impression: Acute pain of left foot, Gout Instructions Patient Instructions: DI for Gout Print Language Print Language: Albanian Discharge ED Provider: Antonio Medina General Adult HPI General Chief complaint: PAIN Stated complaint: Pain and swelling L foot, unable to bare weight Time Seen by Provider: 08/01/25 09:54 History of Present Illness HPI narrative: 49-year-old male presents today for complaint of left ankle and foot pain after stepping on a walnut while he was triggered reading. Patient says that this is gout. He says he really did not even twist his foot or ankle he just stepped on the walnut. He says this is gout because it is painful to touch and has some redness to it. He says he always gets gout and says that this is usually treated with steroids and ibuprofen for him. He says he could not sleep all night due to the pain. He denies any fevers, chills, nausea or vomiting. No infectious symptoms. Patient does not take any daily gout medicines, however he does have a long history of gout. Patient also has history of thoracic aortic aneurysm, aortic root enlargement, malignant hypertension, diastolic dysfunction. Related Data Home Medications ?Medication ?Instructions ?Recorded ?Confirmed lancets 30 gauge (OneTouch Delica #100 ea 10/12/24 Plus Lancet) atorvastatin 10 mg tablet (Lipitor) 10 mg PO DAILY 07/24/25 Previous Rx's ?Medication ?Instructions ?Recorded blood-glucose meter #1 ea 09/04/24 lancets (Accu-Chek Softclix #100 ea 09/04/24 Lancets) blood sugar diagnostic (Accu-Chek #100 ea 10/04/24 Carole Plus test strips) lisinopril 40 mg tablet 40 mg PO DAILY #90 tabs 09/27 12/19 dapagliflozin propanediol 5 mg See Rx Instructions .Ro rakesh 03/14/25 tablet (Farxiga) .COMPLEX #90 tabs amlodipine 10 mg tablet 10 mg PO DAILY #90 tabs 05/29 02/18 blood pressure test kit-large #1 ea 06/21/25 hydralazine 25 mg tablet See Rx Instructions .Route 1 .COMPLEX #90 tabs semaglutide 0.25 mg or 0.5 mg (2 See Rx Instructions . Route 07/17/25 mg/3 mL) subcutaneous pen injector .COMPLEX #3 mL (Ozempic) carvedilol 25 mg tablet See Rx Instructions .Route 1 .COMPLEX #60 tabs isosorbide dinitrate 20 mg tablet See Rx Instructions .Route 07/23/25 .COMPLEX #180 tabs ibuprofen 800 mg tablet 800 mg PO Q8H PRN pain #30 t abs 08/01/25 prednisone 20 mg tablet 20 mg PO BID 5 days #10 tabs 08/01/25 Allergies Allergy/AdvReac Type Severity Reaction Status Date / Time No Known Allergies Allergy Verified 07/24/25 11:00 [facility] Disclaimer: The information contained in this section may have been updated after the patient was seen, as this information can be updated by other users. Medical History (Updated 08/01/25 @ 11:11 by Echo Todd (ED), SUPERVISOR [employer] SYSTEM) Shortness of breath Bronchitis Chest pain Angina at rest Wrist pain, left Effusion, left knee Atypical chest pain Muscle spasm Gout attack Strep throat Thoracic aortic aneurysm Aortic root enlargement Malignant hypertension Abnormal EKG HTN (hypertension) Diastolic dysfunction, left ventricle Surgical History Hx of cholecystectomy Family History Grandmother Diabetes Mother Cancer Grandfather Cancer Social History Smoking Status: Never smoker alcohol intake: never substance use type: denies use current occupational status: employed Travel in the last 8 weeks?: None household members: significant other housing: house caffeine: Yes Have you lived/traveled outside US in past 30 days?: No Contact w/someone who lives/traveled outside US past 30 days?: No Exposure to someone with infectious disease in past 14 days?: No Do you have a fever (greater than 100.4 F or 38 C)?: No Have you tested positive for COVID-19?: No Exposed to someone with COVID-19 in past 14 days?: No Do you have a sore throat?: No Do you have a cough?: No Do you have any weakness?: No Do you have any diarrhea?: No Are you experiencing any unusual bleeding?: No Do you have any muscle aches/pain?: No Do you have any abdominal pain?: No Are you experiencing loss of taste or smell?: No Other Medical History Have you received the Flu Vaccine for this season: No Have you received the Pneumonia Vaccine: No ROS Obtained: Yes Systems reviewed as appropriate & no additional complaints except as documented Constitutional Constitutional: Reports as per HPI Physical Exam General General appearance: alert Head Head exam: normocephalic Eye Eye exam: Present PERRL and EOMI ENT ENT exam: Present normal oropharynx and mucous membranes moist Neck Neck exam: Present full ROM and trachea midline Respiratory Respiratory exam: Present other Cardiovascular Cardiovascular exam: Present normal rhythm Extremities Exam Extremities exam: Present full ROM (Pain), tenderness, normal capillary refill and edema Neurological Exam Neurological exam: Present alert and oriented X3 Skin Skin exam: Present warm, dry and erythema (Mild erythema to the bottom of his foot) Medical Decision Making Medical Records Screening: Per USPSTF and CDC recommendations, given the prevalence of disease in our region, it is our hospital?s policy to screen for HIV and viral Hepatitis for all patients aged 18 and over and those with ongoing risk factors. Maximo Inquiry Pt receiving controlled substance: No Maximo was queried for this patient: No Vital Signs: 08/01/25 09:52 08/01/25 09:52 08/01/25 10:30 Temperature 97.8 F 97.8 F Temperature Source Oral Oral Pulse Rate 96 H 80 Pulse Rate [Right] 96 H Respiratory Rate 16 16 16 Blood Pressure 110/64 95/60 L Blood Pressure [Right Arm] 110/64 Blood Pressure Mean 66 Blood Pressure Mean [Right Arm] 79 Blood Pressure Source Automatic Cuff Blood Pressure Source [Right Arm] Automatic Cuff Blood Pressure Position Supine Blood Pressure Position [Right Arm] Supine 02 Sat by Pulse Oximetry 95 95 95 Oxygen Delivery Method Room Air Room Air 08/01/25 11:00 Temperature Temperature Source Pulse Rate 73 Pulse Rate [Right] Respiratory Rate Blood Pressure 98/63 L Blood Pressure [Right Arm] Blood Pressure Mean 71 Blood Pressure Mean [Right Arm] Blood Pressure Source Blood Pressure Source [Right Arm] Blood Pressure Position Blood Pressure Position [Right Arm] 02 Sat by Pulse Oximetry 94 L Oxygen Delivery Method Orders (Tests/Meds): ED MEDICATIONS Discontinued Medications Generic Name Dose Route Start Last Admin Trade Name Freq PRN Reason Stop Dose Admin Dexamethasone Sodium Phosphate 8 mg 08/01/25 10:00 08/01/25 10:21 Dexamethasone 4mg/Ml 5ml Mdv IM 08/01/25 10:01 Not Given ONCE ONE Ibuprofen 800 mg 08/01/25 10:22 08/01/25 10:32 Ibuprofen 800 Mg Tablet PO 08/01/25 10:23 800 mg ONCE ONE Administration Ketorolac Tromethamine 60 mg 08/01/25 10:00 08/01/25 10:21 Ketorolac 60mg/2ml Vial IM 08/01/25 10:01 Not Given ONCE ONE Prednisone 40 mg 08/01/25 10:21 08/01/25 10:32 Prednisone 20mg Tab PO 08/01/25 10:22 40 mg ONCE ONE Administration ORDERS Category Date Time Status Ankle XR - Left minimum 3 Views [XR ankle LT min 3V] Exams 08/01/25 09:59 Completed Stat Foot XR left minimum 3 views [XR foot LT min 3V] Stat Exams 08/01/25 10:01 Completed Medical Decision Narrative: patient is a 49-year-old male presenting to the emergency department for evaluation of painful foot after stepping on a walnut. Patient is hemodynamically stable and nontoxic-appearing upon arrival, afebrile. Differential diagnosis includes gout versus strain, sprain or fracture of left foot. Workup will be conducted with specific imaging. Initial inventions include analgesics. Patient specifically asking for steroid and ibuprofen. Will do these things for patient but will also do imaging to make sure this is not a fracture. Patient's x-ray showed no acute fracture. Will send patient home with prednisone and ibuprofen. He will follow-up with his PCP if any further problems or concerns with his pain. Patient safe for discharge home. Critical Care Critical Care Time Critical Care Time: No
--- NOTE | 2025-08-01 10:01 | XR_ITS ---
FINAL REPORT CLINICAL HISTORY: pain FINDINGS: AP, oblique and lateral views of the left foot were obtained. There is no acute fracture or dislocation. There is mild degenerative joint disease of the midfoot. Soft tissues are unremarkable. IMPRESSION: Mild degenerative joint disease. Reviewed, Interpreted and Dictated by Jackie Ibarra MD Transcribed by Wendy Ronquillo Authenticated and [facility]
[2025-08-01 10:30] VITALS: BP 95/60; PULSE 80; RESP 16; O2SAT 95
[2025-08-01] MEDS: IBUPROFEN 800 MG TABLET PO (10:32)
[2025-08-01 11:00] VITALS: BP 98/63; PULSE 73; O2SAT 94
[2025-08-01 11:17] VITALS: BP 98/63; PULSE 74; RESP 16; TEMP 36.6; O2SAT 96
== END 2025-08-01 11:22 | disposition home or self-care (01) ==
PROVIDERS: Emergency Provider Student in an Organized Health Care Education/Training Program; PCP Family Medicine
DX: M79.672 Pain in left foot (principal); M10.9 Gout, unspecified
CPT/HCPCS: 73610; 73630; 99283